=== PATIENT | male | born 1940 | race Caucasian/White ===

== ENCOUNTER 2017-10-06 02:00 | Inpatient (IN) | payer MEDICARE, BC ==
[2017-10-06 03:00] LABS: Hemoglobin 12.4 g/dL (14.0-18.0); Mean Corpuscular HGB CONC 31.2 g/dL (32.0-36.0); Mean Corpuscular Hemoglobin 30.2 pg (27.0-31.0); Platelet Count 283 thou/uL (130-400); RBC Distribution Width 17.5 % (11.5-14.5); Red Blood Cell (RBC) Count 4.09 mill/uL (4.70-6.10); White Blood Cell (WBC) Count 27.4 thou/uL (4.8-10.8)
[2017-10-06 03:17] LABS: Band 3 % (5-11); Eosinophils 3 % (0-10); Lymphocytes 2 % (21-51); MDiff Complete? YES; Monocytes 4 % (0-10); Neutrophil 88 % (42-75)
[2017-10-06 03:20] LABS: ALT (SGPT) 12 U/L (8-55); AST (SGOT) 26 U/L (5-34); Albumin 3.9 g/dL (3.4-4.8); Alkaline Phosphatase 75 U/L (40-150); Anion Gap 11 mmol/L (10-20); BUN (Urea Nitrogen) 34 mg/dL (8.4-25.7); Bilirubin, Total 0.5 mg/dL (0.2-1.2); Calc. Creatinine Clearance 0 mL/min (70-130); Calcium 8.6 mg/dL (7.8-10.44); Carbon Dioxide 26 mmol/L (23-31); Chloride 103 mmol/L (98-107); Estimated GFR-MDRD 32; Globulin 2.9 g/dL (2.4-3.5); Glucose 106 mg/dL (83-110); Lipase 33 U/L (8-78); Potassium 4.4 mmol/L (3.5-5.1); Protein, Total 6.8 g/dL (5.8-8.1); Sodium 136 mmol/L (136-145)
[2017-10-06 04:34] LABS: Bilirubin Negative (Negative); Blood, Urine Negative (Negative); Clarity CLEAR (Clear); Glucose, Urine (Dipstick) Negative (Negative); Leukocyte Negative (Negative); Nitrite Negative (Negative); Protein, Urine (Dipstick) 30 mg/dL (Neg-Trace); Specific Gravity, Urine 1.015 (1.002-1.036); Urobilinogen 0.2 mg/dL (0.2-1.0); pH, Urine 5.5 (5.0-9.0)
[2017-10-06 04:36] LABS: Bacteria/HPF None Seen HPF (None Seen); Hyaline Casts/LPF 0-3 HYALINE CAST LPF (0-3 Hyaline); Pathc Cast-AUWi Flag 0.14 (0-2.49); RBC/HPF 0-3 HPF (0-3); Squamous Epithelial 0-3 HPF (0-3); WBC/HPF 0-3 HPF (0-3)
[2017-10-06 04:37] LABS: Yeast-AUWi Flag 48.5 (0-25.0)
[2017-10-06 04:47] LABS: Yeast-All Forms None Seen HPF (None Seen)
[2017-10-06 06:04] LABS: CKMB 1.3 ng/mL (0-6.6); Troponin I Less than 0.010 ng/mL (< 0.028)
[2017-10-06] MEDS ORDERED: Chloraseptic Spray 180 ml Bottle PO PRN (07:10)
[2017-10-06] MEDS ORDERED: hydrALAZINE 20 MG/ML VIAL SLOW IVP PRN (07:10)
[2017-10-06] MEDS ORDERED: Zolpidem Tartrate 5 MG TAB PO PRN (07:10)
[2017-10-06] MEDS ORDERED: Sodium Chloride 0.65% Nasal 44 ML BOT EA NARE PRN (07:10)
[2017-10-06] MEDS ORDERED: Ondansetron PF 4 MG/2 ML Vial IVP PRN (07:10)
[2017-10-06] MEDS ORDERED: HYDROcodone/Acetaminophen 5/325 mg Tablet PO PRN (07:10)
[2017-10-06] MEDS ORDERED: Mag-Al 1200 mg/1200 mg/30 ML UDCUP PO PRN (07:10)
[2017-10-06] MEDS ORDERED: Loperamide HCl 2 MG CAP PO PRN (07:10)
[2017-10-06] MEDS ORDERED: Acetaminophen 325 MG TAB PO PRN (07:10)
[2017-10-06] MEDS ORDERED: Artificial Tear Sol 15 ML BOT EA EYE PRN (07:10)
[2017-10-06] MEDS ORDERED: Eucerin (Mineral Oil/Petrolatum,White) 30 gm Jar TOP PRN (07:10)
[2017-10-06] MEDS ORDERED: Loratadine 10 MG TAB PO PRN (07:10)
[2017-10-06] MEDS ORDERED: Diabetic Tussin 200 MG/10 ML UDCUP PO PRN (07:10)
[2017-10-06] MEDS: Sodium Chloride 0.9% 1,000 ML IV SCH ×2 (08:07→17:25)
[2017-10-06] MEDS: metroNIDAZOLE 500 MG in Premix Bag 1 BAG IVPB SCH ×2 (09:40→17:24)
[2017-10-06] MEDS: Heparin 5,000 UNITS/ML VIAL SC SCH ×2 (10:07→20:24)
[2017-10-06] MEDS: Saccharomyces boulardii 250 MG CAP PO SCH (10:07)
--- NOTE | 2017-10-06 13:01 | HP ---
DATE OF ADMISSION: 10/06/2017 PRIMARY CARE PHYSICIAN: Dr. Trnet Guardado. REASON FOR ADMISSION: Acute kidney failure, diarrhea. HISTORY OF PRESENT ILLNESS: A 77-year-old male who is sick since end august. The patient reports that initially symptoms started with dizziness. His dizziness was happening whenever he was lying fl at in the bed. There was no relation of dizziness with change in position of his head. There was no associated spinning sensation, but he was feeling nausea and intermittent vomiting and that is why salima desiraejayme saw ENT doctor in end august. The patient was told that his ENT examination was completely normal, but per the patient was given prescription of Keflex for 10 days. After starting that antibi otic therapy, the patient was having diarrhea. The patient also had diarrhea while on antibiotic the rapy and when he finished complete course of therapy, even after that the patient's diarrhea was pers isted. Normally, he has to go for bowel movement for 5 times, each time liquidy bowel movement. The patient also had very poor appetite and he lost about a 6-pound since end august. The patient was feeling crampy pain with the diarrhea, but he did not have any abdominal distention. He was not hav ing any hematochezia or melena. The patient also had several times similar dizzy spell episode along with nausea and vomiting and that is why they repeatedly show ENT doctor, but he recommended that ev erything is fine and no medication was prescribed. For last week, the patient was experiencing increasing nausea, upsetting stomach, and he was not able to keep anything down and his appetite reduced and that is why per patient's family member, took him to statistical typist. Dr. Earl did upper endoscopy as an outpatient basis and he was found with ga stritis and esophagitis, and instruction was given to increase lansoprazole twice a day. The patient still has ongoing diarrhea and he was feeling weak, dizzy, and tired that is why. The elsy rae also saw primary care physician and all symptoms were attributed to be dehydration. Today, doug france decided to bring him to the emergency room and he is found with acute kidney failure with a leukocy tosis with bandemia. The patient denies any UTI symptoms. He denies any constipation. He denies an y NSAID abuse. He denies any fever or chills. He denies any headache, chest pain, palpitations, ruel rtness of breath, or complete syncope. PAST MEDICAL HISTORY: History of diverticulosis as well as colon polyp, required a polypectomy and s ubsequently the patient had a post-polypectomy bleeding, required another colonoscopy; history of div erticulitis; history of abdominal aortic aneurysm with repair; iliac artery aneurysm with repair; hyp ertension; basal cell carcinoma; polycythemia vera; chronic splenomegaly; macular degeneration; senso rineural hearing loss; hypertension; gastroesophageal reflux disease; recent gastritis and esophagiti s. PAST SURGICAL HISTORY: Abdominal hernia repair with mesh, bilateral cataract removal, left iliac art david aneurysm repair, abdominal aortic aneurysm repair, L4-L5 lumbar laminectomy, colonoscopy and subs equent repeat colonoscopy for post-polypectomy bleeding, cholecystectomy. PAST PSYCHIATRIC HISTORY: Reviewed and negative. SOCIAL HISTORY: The patient is a former smoker. He quit smoking a few years ago. He denies any alc ohol or other illicit drug abuse. FAMILY HISTORY: The patient is only sibling left. Both parents in their 70s. Father from natural causes. Mom from massive heart attack. He has 3 sisters, one sister with stomach cancer, another sister with lung cancer, and another sister with throat cancer. Brother d ied from massive heart attack. ALLERGIES: No known drug allergy. REVIEW OF SYSTEMS: Please see my HPI for pertinent positive and negative. All other review of syste ms reviewed and negative except as mentioned in the HPI. Constitutional: Weight loss or gain, ability to conduct usual activities. Skin: Rash, itching. Eyes: Double vision, pain. ENT/Mouth: Nose bleeding, neck stiffness, pain, tenderness. Cardiovascular: Palpitations, dyspnea on exertion, orthopnea. Respiratory: Shortness of breath, wheezing, cough, hemoptysis, fever or night sweats. Gastrointestinal: Poor appetite, abdominal pain, heartburn, nausea, vomiting, constipation, or diarrhea. Genitourinary: Urgency, frequency, dysuria, nocturia. Musculoskeletal: Pain, swelling. Neurologic/Psychiatric: Anxiety, depression. Allergy/Immunologic: Skin rash, bleeding tendency. CURRENT HOME MEDICATIONS: Amlodipine 5 mg p.o. at bedtime, aspirin 81 mg p.o. at bedtime, hydroxyure a 500 mg p.o. daily, Prevacid 30 mg p.o. b.i.d., Hytrin 10 mg p.o. at bedtime. EMERGENCY ROOM COURSE: The patient is given 2 liters of IV fluid. PHYSICAL EXAMINATION: VITAL SIGNS: On arrival, blood pressure 105/65, pulse 90, respiratory rate 18, temperature 98.0, sat uration 99% on room air, weight 63.9 kilograms. GENERAL: The patient is currently alert, awake, appears chronically ill, in no obvious acute distres s. HEAD: Normocephalic, atraumatic. EYES: Pupils round, reactive to light. Extraocular muscle intact. ENT: Oropharynx within normal limits. Moist mucous membranes. No oral lesion, no pharyngeal erythe ma, no exudate. NECK: Supple, no JVD, no thyromegaly, no carotid bruit, no jugular venous distention. LUNGS: Clear to auscultation without any rhonchi or rales. CARDIAC: S1, S2 appears regular. No murmur, no gallop, no rub. ABDOMEN: Soft, bowel sounds present. No peritoneal sign, no guarding, no rigidity, no rebound, no s uprapubic tenderness. BACK: Unremarkable, no CVA tenderness. EXTREMITIES: Upper extremity: Passive movements of all joints are normal. Lower extremities: No e nanette. Good peripheral pulsation. SKIN: No skin rash. HEMATOLOGICAL: No lymphadenopathy. PSYCHIATRIC: Normal affect. NEUROLOGIC: Nonfocal examination. The patient moves all 4 limbs. Plantar bilateral flexor. SIGNIFICANT LABS: EKG showing nonspecific ST-T changes. Complete right bundle branch block pattern, left anterior fascicular block consistent with bifascicular block. CT of the abdomen and pelvis showing massive splenomegaly, status post cholecystectomy, aortoiliac st ent graft placement, the largest cyst throughout both kidneys suspicious for autosomal dominant polyc ystic kidney disease, diverticulosis, prostatomegaly. CBC: WBC 27.4, hemoglobin 12.4, platelet 283 with bandemia. BMP: Sodium 136, potassium 4.4, chlori de 103, carbon dioxide 26, anion gap 11, BUN 34, creatinine 2.05, glucose 106, calcium 8.6, magnesium 1.8. LFT: AST 26, ALT 12, alkaline phosphatase 75, CK-MB 1.3, troponin I less than 0.010, albumin 3.9, li pase 33. Urinalysis normal. ASSESSMENT AND PLAN: 1. Diarrhea. The patient has almost 1 month history of diarrhea, all diarrhea started after antibio tic exposure. The patient has leukocytosis with bandemia and I am suspecting Clostridium difficile i nfection. At this point, stool for infection workup will be sent and will start empirically IV Flagy l 500 mg IV q.8 hourly. We will hydrate him with IV fluid and also prescribe probiotics, Florastor 2 50 mg p.o. daily. If the patient infection workup is negative, then we will consult Gastroenterology consultation for possible colonoscopy evaluation. This patient already had colonoscopy about a year ago. We will monitor in hospital closely for hemodynamic compromise. 2. Acute kidney failure likely related with the patient's poor p.o. intake and ongoing diarrhea. At this point, we will continue gentle IV fluid at NS at 100 mL per hour and we will monitor renal func tion. Another possibility that patient has multiple cysts in his both kidneys that patient might hav e chronic renal disease associated with polycystic kidney disease. The patient will need outpatient Nephrology followup. 3. Polycythemia vera with history of chronic splenomegaly. The patient will continue hydroxyurea 50 0 mg p.o. daily. The patient will follow up with Dr. Breen as an outpatient basis for maintenance phlebotomy. 4. Hypertension. We will continue amlodipine 5 mg p.o. daily. 5. Benign enlargement of prostate. We will continue terazosin 10 mg p.o. at bedtime. 6. Protein calorie malnutrition, moderate. The patient will be given nutritional supplement while i n hospital. 7. Deep venous thrombosis prophylaxis, heparin 5000 units subcu twice daily. 8. Gastrointestinal prophylaxis, Pepcid 20 mg p.o. daily. CODE STATUS: The patient is FULL CODE. The patient's is surrogate decision maker. Disposition plan based on clinical course. We are expecting patient's stay in hospital more than 2 m idnights. Plan of care discussed with the patient and family member in detail.
[2017-10-06] MEDS ORDERED: Iopamidol 370 76% 50 ML VIAL FS ONE (15:18)
--- NOTE | 2017-10-06 19:07 | CT ---
PRELIMINARY REPORT/[facility]/EMERGENTY AFTER-HOURS PROCEDURE CT Abdomen and Pelvis Without Intravenous Contrast CLINICAL HISTORY: 77 years old, male; Signs and symptoms; Other: Diahrrea; Patient HX: Given oral contrast, m75 C/O berlin rrhea with slight abd pain and dizziness. Pt has had diarrhea since the end of august with intermitten t vomiting. Pt took nausea meds at 0030. Pt had gi scope done on ; Results are not back. Pt denies any CT scans done. Pt has HX of polycythemia and HTN. TECHNIQUE: Axial computed tomography images of the abdomen and pelvis without intravenous contrast. Coronal refo rmatted images were created and reviewed. COMPARISON: No relevant prior studies available. FINDINGS: Lung bases: Unremarkable. No mass. No consolidation. ABDOMEN: Liver: Unremarkable. Gallbladder and bile ducts: The patient has had a cholecystectomy. No ductal dilation. Pancreas: Unremarkable. No ductal dilation. Spleen: The spleen is massively enlarged, measuring 24.9 x 16.1 cm. Adrenals: Unremarkable. No mass. Kidneys and ureters: There are numerous large cysts throughout both kidneys, measuring up to 7.8 cm o n the left consistent with probable autosomal dominant polycystic kidney No obstructing stones. Stomach and bowel: Scattered diverticula without evidence of acute diverticulitis or perforation. No obstruction. PELVIS: Appendix: No findings to suggest acute appendicitis. Bladder: Unremarkable. No stones. Reproductive: Prostate is enlarged, measuring 4.9 x 3.9 cm. ABDOMEN and PELVIS: Intraperitoneal space: Unremarkable. No free air. No significant fluid collection. Bones/joints: No acute fracture. No dislocation. Soft tissues: Unremarkable. Vasculature: There is an aortoiliac stent graft in place. No evidence of rupture. No abdominal aortic aneurysm. Lymph nodes: Unremarkable. No enlarged lymph nodes. IMPRESSION: Massive splenomegaly. Status post cholecystectomy and aortoiliac stent-graft placement. Large cysts throughout both kidneys suspicious for autosomal dominant polycystic kidney disease. Diverticulosis without acute diverticulitis. Prostatomegaly. Thank you for allowing us to participate in the care of your patient. Dictated and Authenticated by: Jaziel Padilla MD 10/06/2017 6:05 AM Central Time ([place] & [place]) FINAL REPORT EMERGENT AFTER HOURS CT OF THE ABDOMEN AND PELVIS: IMPRESSION: Agree with the preliminary interpretation given by [facility]. Findings appear similar to the 10/02/16 exami nation. POS: VARUN
[2017-10-06] MEDS: Amlodipine 5 MG TAB PO SCH (20:13)
[2017-10-06] MEDS: Terazosin HCl 5 MG CAP PO SCH (20:13)
[2017-10-06] MEDS: Aspirin 81 mg Enteric Coated Tablet PO SCH (20:13)
--- NOTE | 2017-10-06 22:11 | CON ---
DATE OF CONSULTATION: 10/06/2017 REASON FOR CONSULTATION: Diarrhea. CONSULTING PHYSICIAN: Eladio Moore M.D. HISTORY OF PRESENT ILLNESS: The patient is a 77-year-old male with past medical history of diverticu litis; colon polyps; AAA, status post repair; iliac artery aneurysm, status post repair; hypertension ; basal cell carcinoma; polycythemia vera with splenomegaly; sensorineural hearing loss; macular dege neration; hypertension; GERD and mild dementia; presenting with complaints of diarrhea. Per conversa tion with the patient and the patient's family, he has been having intermittent diarrhea for the last year, initially characterized as having anywhere between 3-5 semi-solid to liquid bowel movements pe r day that would spontaneously resolve with more semi-solid to solid stools during the same time. Ho wever, approximately 1 month ago, he was having increased coughing and was thought to have a sinus in fection. He was seen by an ENT doctor, who gave the patient antibiotics (Keflex) for 10 days with re appearance of his diarrhea after that. However, after upon cessation of the antibiotic therapy, he d id endorse a period of time where he did not have any diarrhea. However, approximately 4-5 days ago, he had acute onset of worsening of his chronic diarrhea, characterized as having more than 20 semi s olid/loose bowel movements per day with no special maneuvers in order to defecate. This was associat ed with increased accident/slowing of his clothes that would occur both during the day and at night. His diarrhea did not improve with fasting states. He denies any sick contacts, drinking or swimming from untreated water sources, recent changes in his medication (although he did change Zoloft approx imately a month and a half ago) or eating from any street/food vendors. However, the night that his diarrhea worsened, he said that he had gone to a family member's house and had consumed shrimp and oy sters with the appearance of the diarrhea along with nausea and vomiting within 1-1/2 hours after the consumption of food. The nausea and vomiting abated with the use of antiemetic medications, but his diarrhea continued to the current day. With the increase in the nausea and vomiting, he was seen by Dr. Earl in the [facility], who ultimately did an upper endoscopy. During the upper endoscopy, he found evidence of increased m ucosal erythema within the stomach, duodenum and distal esophagus consistent with mild gastritis, duo denitis and reflux esophagitis respectively. His acid reflux medication (lansoprazole) was then incr eased to twice daily usage for probable acid reflux disease. Of note, the patient does have livestock at home consisting of both chickens and cows and he does davey vest the eggs for human consumption. REVIEW OF SYSTEMS: A 10-category review of systems was obtained with all responses negative except f or the pertinent positives as listed in the HPI. PAST MEDICAL HISTORY: As per HPI. PAST SURGICAL HISTORY: Abdominal hernia repair with mesh, bilateral cataract removal, left iliac art david aneurysm repair, abdominal aortic aneurysm repair, L4-L5 lumbar laminectomy, multiple colonoscopi es with post-polypectomy bleeding in 11/2016 and cholecystectomy. FAMILY HISTORY: Positive for stomach cancer (sister), lung cancer (sister), throat cancer (sister), coronary artery disease/myocardial infarction. SOCIAL HISTORY: Denies any tobacco, alcohol or illicit drug use. OUTPATIENT MEDICATIONS: Reviewed. ALLERGIES: No known drug allergies. PHYSICAL EXAMINATION: VITAL SIGNS: Temperature 99, pulse 88, blood pressure 150/92, respiratory rate 16, satting 100% on r oom air. GENERAL: The patient is lying in bed, in no acute distress, alert and oriented x4. NECK: Supple. No JVD noted. CARDIOVASCULAR: Regular rate and rhythm. A 3/6 systolic murmur was best heard at the right upper st ernal border that was high pitched in its character. No discernible gallops or rubs. RESPIRATORY: Clear to auscultation in the bilateral upper lung ross; however, there was some resis tance airflow in the bilateral lower lung ross without evidence of wheezing or rales. ABDOMEN: Normoactive bowel sounds, soft, nontender, and nondistended. EXTREMITIES: No cyanosis, clubbing or edema. Some ecchymoses noted on the bilateral upper extremiti es. LABORATORY DATA: CBC with a white blood cell count of 27.4, hemoglobin 12.4, hematocrit 39.7, platel ets 283. Chemistry with a sodium of 136, potassium 4.4, chloride 103, CO2 of 26, BUN 34, creatinine 2.05, glucose 106, AST 26, ALT 12, alkaline phosphatase 75, total bilirubin 0.5, lipase 33, albumin 3 .9. Infectious stool workup was negative for Clostridium difficile, Campylobacter, Shiga toxin, Giar berlin and cryptosporidium. IMAGING DATA: CT abdomen and pelvis obtained on 10/06/2017, but the final read is still pending at t his time. ASSESSMENT AND PLAN: The patient is a 77-year-old male with past medical history of multiple medical problems, presenting with complaints of acute on chronic diarrhea. Diarrhea. The patient is presenting with a history of chronic diarrhea that has been present for the last year with both EGD and colonoscopic evaluation performed in November of last year. Colonoscopy per formed in November did not find any evidence of lymphocytic or collagenous colitis at that time. However , 1 month ago, he had a sinus infection for which he was treated with antibiotic therapy. During the antibiotic administration, he did have acute worsening of the diarrhea, but it abated upon completio n of the antibiotic regimen. However, 4-5 days ago, he had acute worsening of his diarrhea after con sumption of shrimp and oysters, now having approximately 20+ bowel movements semi-solid to loose marbella l movements per day that are associated with increased accidents and soiling with no change in food c onsumption. He denies any elements of steatorrhea in his stool making bile acid diarrhea or pancreat ic exocrine insufficiency less likely. At this point, given the acute onset or acute worsening of hi s diarrhea within the last 4-5 days an infectious etiology is more likely with a history of raising c hickens and cows was at home, Salmonella is definitely on the differential for possible infectious et iology. Entamoeba histolytica is also a potential infectious etiology that could be causing his diar ahsanti. He was recently increased on lansoprazole as part of a recommended regimen secondary to gastri tis seen on the recent EGD with proton-pump inhibitors among medications that could potentially cause microscopic colitis and lastly he is also taking hydroxyurea for polycythemia vera, which could pote ntially cause diarrhea. RECOMMENDATIONS: 1. We would hold PPI and hydroxyurea for now given possible worsening diarrhea as a result of these medications. 2. We will follow up on the stool culture for evaluation of possible Salmonella infection. 3. We will order Entamoeba histolytica antigen for evaluation of possible parasite infection. 4. I agree with as needed use of loperamide to slow the diarrhea states. We would recommend against attempting to normalize his bowel movements at this time given a possible infectious etiology. 5. If all the above are negative, we would then consider repeat colonoscopy for reevaluation of poss ible microscopic colitis or other infectious etiology including viral etiology. We will continue to follow. Please call with any additional questions.
[2017-10-07] MEDS: metroNIDAZOLE 500 MG in Premix Bag 1 BAG IVPB SCH ×3 (00:39→18:36)
[2017-10-07 05:28] LABS: ALT (SGPT) 9 U/L (8-55); AST (SGOT) 15 U/L (5-34); Albumin 3.3 g/dL (3.4-4.8); Alkaline Phosphatase 57 U/L (40-150); Anion Gap 9 mmol/L (10-20); BUN (Urea Nitrogen) 29 mg/dL (8.4-25.7); Bilirubin, Total 0.4 mg/dL (0.2-1.2); Calc. Creatinine Clearance 38 mL/min (70-130); Calcium 8.2 mg/dL (7.8-10.44); Carbon Dioxide 24 mmol/L (23-31); Chloride 109 mmol/L (98-107); Estimated GFR-MDRD 44; Globulin 2.3 g/dL (2.4-3.5); Glucose 86 mg/dL (83-110); Potassium 4.1 mmol/L (3.5-5.1); Protein, Total 5.6 g/dL (5.8-8.1); Sodium 138 mmol/L (136-145)
--- NOTE | 2017-10-07 05:29 | PDOC.PN ---
- Subjective Encounter Start Date: 10/07/17 Encounter Start Time: 07:00 -: old records requested/rev Patient seen and examined. No new complaints. No overnight events still has diarrhoea, has poor apatite, no fever - Objective Resuscitation Status: Resuscitation Status FULL:Full Resuscitation MAR Reviewed: Yes Vital Signs & Weight: Vital Signs (12 hours) Temp Pulse Resp BP BP Pulse Ox 10/07/17 04:00 99.5 F 82 18 113/72 94 L 10/07/17 01:04 95 10/07/17 00:00 99.8 F H 82 18 152/80 H 92 L 10/06/17 20:13 88 133/75 10/06/17 20:00 98.3 F 88 18 133/75 95 Weight Weight 142 lb 8 oz I&O: 10/05/17 10/06/17 10/07/17 06:59 06:59 06:59 Intake Total 1789 Output Total 1425 Balance 364 Result Diagrams: 10/07/17 04:44 10/07/17 04:44 EKG Reviewed by me: Yes (nsr) Phys Exam - Physical Examination Constitutional: NAD HEENT: PERRLA, moist MMs, sclera anicteric Neck: no JVD, supple Respiratory: no wheezing, no rales, no rhonchi Cardiovascular: RRR, no significant murmur, no rub Gastrointestinal: soft, non-tender, no distention, positive bowel sounds Musculoskeletal: no edema, pulses present Neurological: non-focal, normal sensation, moves all 4 limbs Psychiatric: normal affect, A&O x 3 Skin: no rash, normal turgor Dx/Plan (1) Acute kidney failure Status: Acute (2) Diarrhea Code(s): R19.7 - DIARRHEA, UNSPECIFIED Status: Acute (3) Diverticulosis of colon Code(s): K57.30 - DVRTCLOS OF LG INT W/O PERFORATION OR ABSCESS W/O BLEEDING Status: Chronic (4) GERD (gastroesophageal reflux disease) Code(s): K21.9 - GASTRO-ESOPHAGEAL REFLUX DISEASE WITHOUT ESOPHAGITIS Status: Chronic (5) H/O abdominal aortic aneurysm repair Code(s): Z98.890 - OTHER SPECIFIED POSTPROCEDURAL STATES Status: Chronic (6) Hypertension Code(s): I10 - ESSENTIAL (PRIMARY) HYPERTENSION Status: Chronic (7) Polycythemia vera Code(s): D45 - POLYCYTHEMIA VERA Status: Chronic (8) Splenomegaly Code(s): R16.1 - SPLENOMEGALY, NOT ELSEWHERE CLASSIFIED Status: Chronic Comment: Secondary to polycythemia - Plan cont current plan of care, plan discussed w/ family, continue antibiotics * DC tele * transfer to medical * infection work up is negative * follow up on testing * medication reviewed as below * symptomatic treatment. * continue flagyl Review of Systems - Review of Systems Eyes: negative: Pain, Vision Change, Conjunctivae Inflammation, Eyelid Inflammation, Redness, Other ENT: negative: Ear Pain, Ear Discharge, Nose Pain, Nose Discharge, Nose Congestion, Mouth Pain, Mouth Swelling, Throat Pain, Throat Swelling, Other Respiratory: negative: Cough, Dry, Shortness of Breath, Hemoptysis, SOB with Excertion, Pleuritic Pain, Sputum, Wheezing Cardiovascular: negative: chest pain, palpitations, orthopnea, paroxysmal nocturnal dyspnea, edema, light headedness, other Gastrointestinal: Diarrhea. negative: Nausea, Vomiting, Abdominal Pain, Constipation, Melena, Hematochezia, Other Genitourinary: negative: Dysuria, Frequency, Incontinence, Hematuria, Retention , Other Musculoskeletal: negative: Neck Pain, Shoulder Pain, Arm Pain, Back Pain, Hand Pain, Leg Pain, Foot Pain, Other Skin: negative: Rash, Lesions, Vasyl, Bruising, Other - Medications/Allergies Allergies/Adverse Reactions: Allergies Allergy/AdvReac Type Severity Reaction Status Date / Time No Known Allergies Allergy Verified 12/01/16 14:12 Medications: Current Medications Acetaminophen (Tylenol) 650 mg PO Q4H PRN PRN Reason: Headache/Fever or Pain Hydrocodone Bitart/Acetaminophen ([place] 5/325) 1 tab PO Q4H PRN PRN Reason: Moderate Pain (4-6) Al Hydroxide/Mg Hydroxide (Maalox) 30 ml PO Q6H PRN PRN Reason: Heartburn or Indigestion Amlodipine Besylate (Norvasc) 5 mg PO HS [facility] Last Admin: 10/06/17 20:13 Dose: 5 mg Artificial Tears (Tears Renewed 15ml Bottle) 0 drop EA EYE PRN PRN PRN Reason: Dry Eyes Aspirin (Ecotrin) 81 mg PO [facility] Last Admin: 10/06/17 20:13 Dose: 81 mg Famotidine (Pepcid) 20 mg PO DAILY [facility] Guaifenesin (Robitussin Sf) 200 mg PO Q4H PRN PRN Reason: Cough Heparin Sodium (Porcine) (Heparin) 5,000 units SC BID [facility] Last Admin: 10/06/17 20:24 Dose: 5,000 units Hydralazine HCl (Apresoline) 10 mg SLOW IVP Q4H PRN PRN Reason: Systolic BP > 180 Hydroxyurea (Hydrea) 500 mg PO DAILY [facility] Sodium Chloride (Normal Saline 0.9%) 1,000 mls @ 100 mls/hr IV .Q10H [facility] Last Admin: 10/06/17 17:25 Dose: 1,000 mls Metronidazole 500 mg/ Device 100 mls @ 100 mls/hr IVPB [id number] [facility] Last Admin: 10/07/17 00:39 Dose: 100 mls Loperamide HCl (Imodium) 2 mg PO PRN PRN PRN Reason: Diarrhea/Loose Stools Loratadine (Claritin) 10 mg PO DAILYPRN PRN PRN Reason: Sinus Symptoms Mineral Oil/White Petrolatum (Eucerin Cream) 0 gm TOP BIDPRN PRN PRN Reason: Dry Skin Ondansetron HCl (Zofran Odt) 4 mg PO Q6H PRN PRN Reason: Nausea/Vomiting Ondansetron HCl (Zofran) 4 mg IVP Q6H PRN PRN Reason: Nausea/Vomiting Phenol (Chloraseptic [place] 180 Ml Bot) 0 ml PO PRN PRN PRN Reason: Sore Throat Saccharomyces Boulardii (Florastor) 250 mg PO DAILY [facility] Last Admin: 10/06/17 10:07 Dose: Not Given Sodium Chloride ([place] Nasal [place] 0.65%) 0 ml EA NARE QIDPRN PRN PRN Reason: Nasal Congestion Terazosin HCl (Hytrin) 10 mg PO HS [facility] Last Admin: 10/06/17 20:13 Dose: 10 mg Zolpidem Tartrate (Ambien) 5 mg PO HSPRN PRN PRN Reason: Insomnia
[2017-10-07 05:31] LABS: Band 12 % (5-11); Eosinophils 1 % (0-10); Hemoglobin 11.2 g/dL (14.0-18.0); Lymphocytes 4 % (21-51); MDiff Complete? YES; Mean Corpuscular Hemoglobin 30.5 pg (27.0-31.0); Mean Corpuscular Volume 98.3 fl (80.0-94.0); Mean Platelet Volume 8.8 fL (7.4-10.4); Monocytes 3 % (0-10); Neutrophil 80 % (42-75); Platelet Count 342 thou/uL (130-400); RBC Distribution Width 17.6 % (11.5-14.5); Red Blood Cell (RBC) Count 3.66 mill/uL (4.70-6.10); White Blood Cell (WBC) Count 25.4 thou/uL (4.8-10.8)
[2017-10-07] MEDS: Sodium Chloride 0.9% 1,000 ML IV SCH ×2 (05:33→16:15)
[2017-10-07] MEDS: Famotidine 20 MG TAB PO SCH (09:34)
[2017-10-07] MEDS: Heparin 5,000 UNITS/ML VIAL SC SCH ×2 (09:35→21:59)
[2017-10-07] MEDS: Hydroxyurea 500 MG CAP PO SCH (09:35)
[2017-10-07] MEDS: Saccharomyces boulardii 250 MG CAP PO SCH (09:36)
[2017-10-07] MEDS: Ondansetron ODT 4 MG TAB PO PRN (09:45)
[2017-10-07] MEDS ORDERED: Promethazine HCl 25 MG/ML VIAL SLOW IVP PRN (10:14)
[2017-10-07] MEDS: Terazosin HCl 5 MG CAP PO SCH (21:59)
[2017-10-07] MEDS: Amlodipine 5 MG TAB PO SCH (21:59)
[2017-10-07] MEDS: Aspirin 81 mg Enteric Coated Tablet PO SCH (21:59)
--- NOTE | 2017-10-07 23:56 | PRG ---
DATE OF SERVICE: 10/07/2017 REASON FOR CONSULTATION: Diarrhea. SUBJECTIVE: Per patient and per patient's , his diarrhea has improved somewhat in terms of frequ ency, but he does continue to have approximately 6 liquid bowel movements over the last 24 hours; how ever, this is also improved in terms of stool consistency with describing more of a solid conten t to his stools rather than this truly liquid. He did have an increased appetite this morning and cuevas bsequently ate all of his breakfast, but within 30-45 minutes after eating breakfast, he vomited most of his breakfast. Currently states that he does feel some nausea, but has not had any further episo kemi of vomiting. Currently, denies any fevers, chills, abdominal pain, hematochezia, melena or hemat emesis. OBJECTIVE: VITAL SIGNS: Temperature 98.1, pulse 91, blood pressure 139/80, respiratory rate 17, satting 98% on room air. GENERAL: The patient is lying in a chair at bedside, in no acute distress. CARDIOVASCULAR: Regular rate and rhythm. A 3/6 systolic murmur best heard at the right upper sterna l border with high pitched character auscultated. No discernible gallops or rubs. RESPIRATORY: Clear to auscultation bilaterally. ABDOMEN: Normoactive bowel sounds, soft, nontender, nondistended. EXTREMITIES: No cyanosis, clubbing or edema. LABORATORY DATA: CBC with a white blood cell count of 25.4, hemoglobin 11.2, hematocrit 36, platelet s 342. Chemistry with a sodium of 138, potassium 4.1, chloride 109, CO2 of 24, BUN 29, creatinine 1. 55, glucose 86. IMAGING DATA: No current GI imaging is available for review. ASSESSMENT AND PLAN: The patient is a 77-year-old male with past medical history of multiple medical problems, presenting with acute on chronic diarrhea. Diarrhea: The patient described a history on admission of chronic diarrhea that had been intermitten tly occurring over the last year with both EGD and colonoscopic evaluation performed in November for that particular condition. There was no evidence of either microscopic colitis seen on the colonoscopy i n 11/2016 nor was any overt abnormalities seen on the EGD just obtained this last week. However, ove r the last 4-5 days prior to admission, he had sudden worsening of his diarrhea, having approximately 20+ bowel movements per day that were semisolid to liquid in form and associated with increased acci dents and soiling of his undergarments. Infectious workup at this time has been negative thus far, w hich could be due to either a viral etiology being the source of his diarrhea or sterilization of his stool with antibiotics prior to completion of testing (unlikely). Infectious workup for Entamoeba h istolytica is also still pending, but with improvement of his symptoms with more conservative measure s, this is unlikely. At this time, the most likely explanation would be acute viral illness causing a viral gastroenteritis resulting in significant diarrhea frequency with dehydration and nausea and v omiting. RECOMMENDATIONS: 1. We would continue to hold PPI and hydroxyurea as possible sources of worsening diarrhea. 2. We will follow up on lab results for Entamoeba histolytica antigen for possible parasitic infecti on. 3. Can continue loperamide for slowing down GI motility and symptom relief of diarrhea. 4. I discussed repeat colonoscopy with both the patient and his and in light of a probable adriana l illness that would not like to proceed at this particular point in time. 5. We would continue with more conservative measures with IV fluids. 6. We would consider discontinuation of metronidazole given the unlikelihood that this is a Clostrid ium difficile infection per stool studies. We will continue to follow. Please call with any questions.
[2017-10-08] MEDS: Sodium Chloride 0.9% 1,000 ML IV SCH ×2 (03:25→14:16)
[2017-10-08 05:59] LABS: Band 4 % (5-11); Eosinophils 2 % (0-10); Hemoglobin 11.6 g/dL (14.0-18.0); Lymphocytes 2 % (21-51); MDiff Complete? YES; Mean Corpuscular HGB CONC 30.5 g/dL (32.0-36.0); Mean Corpuscular Hemoglobin 29.5 pg (27.0-31.0); Mean Corpuscular Volume 96.6 fl (80.0-94.0); Mean Platelet Volume 8.4 fL (7.4-10.4); Monocytes 3 % (0-10); Neutrophil 89 % (42-75); PLT Morphology Comment Appears Increased; Platelet Count 482 thou/uL (130-400); RBC Distribution Width 17.7 % (11.5-14.5); Red Blood Cell (RBC) Count 3.93 mill/uL (4.70-6.10); White Blood Cell (WBC) Count 30.3 thou/uL (4.8-10.8)
[2017-10-08 06:03] LABS: Albumin 3.6 g/dL (3.4-4.8); Anion Gap 11 mmol/L (10-20); BUN (Urea Nitrogen) 31 mg/dL (8.4-25.7); BUN/Creatinine Ratio 20.26; Calc. Creatinine Clearance 37 mL/min (70-130); Calcium 8.6 mg/dL (7.8-10.44); Carbon Dioxide 24 mmol/L (23-31); Chloride 107 mmol/L (98-107); Estimated GFR-MDRD 45; Glucose 83 mg/dL (83-110); Phosphorus 2.6 mg/dL (2.3-4.7); Potassium 4.3 mmol/L (3.5-5.1); Sodium 138 mmol/L (136-145)
[2017-10-08] MEDS: metroNIDAZOLE 500 MG in Premix Bag 1 BAG IVPB SCH (08:08)
--- NOTE | 2017-10-08 09:29 | PDOC.PN ---
- Subjective Encounter Start Date: 10/08/17 Encounter Start Time: 07:00 pt has now jelly like stool, no fever - Objective Resuscitation Status: Resuscitation Status FULL:Full Resuscitation MAR Reviewed: Yes Vital Signs & Weight: Vital Signs (12 hours) Temp Pulse Resp BP BP BP Pulse Ox 10/08/17 07:40 97.8 F 98 20 157/84 H 98 10/08/17 00:00 98.1 F 99 22 H 144/72 H 95 10/07/17 21:59 75 133/80 Weight Weight 140 lb I&O: 10/07/17 10/08/17 10/09/17 06:59 06:59 06:59 Intake Total 3489 1620 Output Total 2550 200 Balance 939 1420 Result Diagrams: 10/08/17 05:05 10/08/17 05:05 Phys Exam - Physical Examination Constitutional: NAD HEENT: PERRLA, moist MMs, sclera anicteric Neck: no JVD, supple Respiratory: no wheezing, no rales, no rhonchi Cardiovascular: RRR, no rub SM+ Gastrointestinal: soft, non-tender, no distention, positive bowel sounds Musculoskeletal: no edema, pulses present Neurological: non-focal, normal sensation, moves all 4 limbs Lymphatic: no nodes Psychiatric: normal affect, A&O x 3 Skin: no rash, normal turgor Dx/Plan (1) Acute kidney failure Status: Resolved (2) Diarrhea Code(s): R19.7 - DIARRHEA, UNSPECIFIED Status: Acute Qualifiers: Diarrhea type: presumed infectious Qualified Code(s): R19.7 - Diarrhea, unspecified Comment: presumed viral infection (3) Diverticulosis of colon Code(s): K57.30 - DVRTCLOS OF LG INT W/O PERFORATION OR ABSCESS W/O BLEEDING Status: Chronic (4) GERD (gastroesophageal reflux disease) Code(s): K21.9 - GASTRO-ESOPHAGEAL REFLUX DISEASE WITHOUT ESOPHAGITIS Status: Chronic (5) H/O abdominal aortic aneurysm repair Code(s): Z98.890 - OTHER SPECIFIED POSTPROCEDURAL STATES Status: Chronic (6) Hypertension Code(s): I10 - ESSENTIAL (PRIMARY) HYPERTENSION Status: Chronic (7) Polycythemia vera Code(s): D45 - POLYCYTHEMIA VERA Status: Chronic (8) Splenomegaly Code(s): R16.1 - SPLENOMEGALY, NOT ELSEWHERE CLASSIFIED Status: Chronic Comment: Secondary to polycythemia (9) Leucocytosis Code(s): D72.829 - ELEVATED WHITE BLOOD CELL COUNT, UNSPECIFIED Status: Chronic Comment: due to polycythemia vera - Plan cont current plan of care, plan discussed w/ family * DC Flagyl * still concerned about his chronic diarrhoea, will defer work up to GI * await few sendout test result * medication reviewed as below * symptomatic treatment. * currently protonix and hydroxyurea on hold Review of Systems - Review of Systems Constitutional: negative: fever, chills, sweats, weakness, malaise, other ENT: negative: Ear Pain, Ear Discharge, Nose Pain, Nose Discharge, Nose Congestion, Mouth Pain, Mouth Swelling, Throat Pain, Throat Swelling, Other Respiratory: negative: Cough, Dry, Shortness of Breath, Hemoptysis, SOB with Excertion, Pleuritic Pain, Sputum, Wheezing Cardiovascular: negative: chest pain, palpitations, orthopnea, paroxysmal nocturnal dyspnea, edema, light headedness, other Gastrointestinal: Diarrhea. negative: Nausea, Vomiting, Abdominal Pain, Constipation, Melena, Hematochezia, Other Genitourinary: negative: Dysuria, Frequency, Incontinence, Hematuria, Retention , Other Musculoskeletal: negative: Neck Pain, Shoulder Pain, Arm Pain, Back Pain, Hand Pain, Leg Pain, Foot Pain, Other Skin: negative: Rash, Lesions, Vasyl, Bruising, Other Neurological: negative: Weakness, Numbness, Incoordination, Change in Speech, Confusion, Seizures, Other - Medications/Allergies Allergies/Adverse Reactions: Allergies Allergy/AdvReac Type Severity Reaction Status Date / Time No Known Allergies Allergy Verified 12/01/16 14:12 Medications: Current Medications Acetaminophen (Tylenol) 650 mg PO Q4H PRN PRN Reason: Headache/Fever or Pain Hydrocodone Bitart/Acetaminophen ([place] 5/325) 1 tab PO Q4H PRN PRN Reason: Moderate Pain (4-6) Al Hydroxide/Mg Hydroxide (Maalox) 30 ml PO Q6H PRN PRN Reason: Heartburn or Indigestion Amlodipine Besylate (Norvasc) 5 mg PO HS [facility] Last Admin: 10/07/17 21:59 Dose: 5 mg Artificial Tears (Tears Renewed 15ml Bottle) 0 drop EA EYE PRN PRN PRN Reason: Dry Eyes Aspirin (Ecotrin) 81 mg PO HS [facility] Last Admin: 10/07/17 21:59 Dose: 81 mg Famotidine (Pepcid) 20 mg PO DAILY [facility] Last Admin: 10/07/17 09:34 Dose: 20 mg Guaifenesin (Robitussin Sf) 200 mg PO Q4H PRN PRN Reason: Cough Heparin Sodium (Porcine) (Heparin) 5,000 units SC BID [facility] Last Admin: 10/07/17 21:59 Dose: 5,000 units Hydralazine HCl (Apresoline) 10 mg SLOW IVP Q4H PRN PRN Reason: Systolic BP > 180 Hydroxyurea (Hydrea) 500 mg PO DAILY [facility] Last Admin: 10/07/17 09:35 Dose: 500 mg Sodium Chloride (Normal Saline 0.9%) 1,000 mls @ 100 mls/hr IV .Q10H [facility] Last Admin: 10/08/17 03:25 Dose: 1,000 mls Loperamide HCl (Imodium) 2 mg PO PRN PRN PRN Reason: Diarrhea/Loose Stools Loratadine (Claritin) 10 mg PO DAILYPRN PRN PRN Reason: Sinus Symptoms Mineral Oil/White Petrolatum (Eucerin Cream) 0 gm TOP BIDPRN PRN PRN Reason: Dry Skin Ondansetron HCl (Zofran Odt) 4 mg PO Q6H PRN PRN Reason: Nausea/Vomiting Last Admin: 10/07/17 09:45 Dose: 4 mg Ondansetron HCl (Zofran) 4 mg IVP Q6H PRN PRN Reason: Nausea/Vomiting Phenol (Chloraseptic [place] 180 Ml Bot) 0 ml PO PRN PRN PRN Reason: Sore Throat Promethazine HCl (Phenergan) 12.5 mg SLOW IVP Q6H PRN PRN Reason: Nausea/Vomiting Saccharomyces Boulardii (Florastor) 250 mg PO DAILY [facility] Last Admin: 10/07/17 09:36 Dose: 250 mg Sodium Chloride ([place] Nasal [place] 0.65%) 0 ml EA NARE QIDPRN PRN PRN Reason: Nasal Congestion Terazosin HCl (Hytrin) 10 mg PO [facility] Last Admin: 10/07/17 21:59 Dose: 10 mg Zolpidem Tartrate (Ambien) 5 mg PO HSPRN PRN PRN Reason: Insomnia
[2017-10-08] MEDS: Saccharomyces boulardii 250 MG CAP PO SCH (09:53)
[2017-10-08] MEDS: Heparin 5,000 UNITS/ML VIAL SC SCH ×2 (09:53→20:44)
[2017-10-08] MEDS: Famotidine 20 MG TAB PO SCH (09:53)
[2017-10-08] MEDS: Hydroxyurea 500 MG CAP PO SCH (09:54)
[2017-10-08 12:45] VITALS: BMI 18.4
[2017-10-08] MEDS: Ondansetron ODT 4 MG TAB PO PRN (14:21)
[2017-10-08] MEDS: Amlodipine 5 MG TAB PO SCH (20:42)
[2017-10-08] MEDS: Terazosin HCl 5 MG CAP PO SCH (20:43)
[2017-10-08] MEDS: Aspirin 81 mg Enteric Coated Tablet PO SCH (20:43)
--- NOTE | 2017-10-08 22:52 | PRG ---
DATE OF SERVICE: 10/08/2017 REASON FOR CONSULTATION: Diarrhea. The patient states that he is doing better this morning with no further episodes of nausea or vomitin g and was able to eat breakfast this morning without incident. He also states that he has had approx imately 3-5 semi-solid bowel movements over the last 24 hours, which is improved in terms of stool co nsistency, but not possibly frequency. Currently, denies any nausea, vomiting, fevers, chills, abdom inal pain, hematochezia, melena, or hematemesis. OBJECTIVE: VITAL SIGNS: Temperature 99.1, pulse 96, blood pressure 155/74, respiratory rate 16, satting 96% on room air. GENERAL: The patient is lying in bed with no acute distress. Alert and oriented x4. CARDIOVASCULAR: Regular rate and rhythm. A 3/6 systolic murmur best heard at the right upper sterna l border with a high-pitched character auscultated. No discernible gallops or rubs. RESPIRATORY: Clear to auscultation bilaterally. ABDOMEN: Normoactive bowel sounds, soft, nontender, nondistended. EXTREMITIES: No cyanosis, clubbing, or edema. LABORATORY DATA: CBC with a white blood cell count of 30.3, hemoglobin 11.6, hematocrit 37.9, platel ets 482. Chemistry with a sodium of 138, potassium 4.3, chloride 107, CO2 of 24, BUN 31, creatinine 1.53, glucose 83. IMAGING DATA: No current GI imaging is available for review. ASSESSMENT AND PLAN: The patient is a 77-year-old male with multiple past medical problems presentin with acute on chronic diarrhea. Diarrhea. The patient admits to a story of chronic diarrhea that has been intermittently occurring o lorena the last year with colonoscopic evaluation, performed in November, with no evidence of microscopic co litis, and more recently an EGD performed last week, which did not reveal any abnormalities. However , 4-5 days prior to admission, he had sudden worsening of this diarrhea with approximately 20+ bowel movements per day. They were semisolid to liquid in form and associated with increased nausea and vo miting and fecal soiling. However, during the course of this hospitalization with more conservative management including IV fluids, n.p.o. status, and administration of antibiotics, he has had signific ant improvement in his diarrhea, now having approximately 3-5 semi-solid bowel movements per day and complete resolution of the nausea and vomiting. Infectious workup for his diarrhea was negative for Campylobacter, Clostridium difficile, Salmonella, Shigella, and E. coli. Infectious workup for Entam oeba histolytica is also still pending, but with improvement in his symptoms with more conservative m easures, this is unlikely. At this time, given the negative bacterial infectious stool workup and un likely jorgensen of parasitic infection or viral illness causing a viral gastroenteritis resulting in sign ificant diarrhea is most likely. RECOMMENDATIONS: 1. We would continue to hold PPI and hydroxyurea as possible sources of worsening diarrhea. 2. We will follow up on the labs for entamoeba histolytica antigen for possible parasitic infection. 3. Continue loperamide. 4. Continue conservative measures with IV fluids in addition to advancing the diet as tolerated. 5. Colonoscopy. Repeat colonoscopy is not indicated at this time. We will continue to follow. Please call with any questions.
[2017-10-09] MEDS: Sodium Chloride 0.9% 1,000 ML IV SCH (00:27)
[2017-10-09] MEDS: Famotidine 20 MG TAB PO SCH (08:44)
[2017-10-09] MEDS: Hydroxyurea 500 MG CAP PO SCH (08:44)
[2017-10-09] MEDS: Heparin 5,000 UNITS/ML VIAL SC SCH ×2 (08:45→21:40)
[2017-10-09] MEDS: Saccharomyces boulardii 250 MG CAP PO SCH (08:45)
--- NOTE | 2017-10-09 17:02 | PDOC.PN ---
- Subjective Encounter Start Date: 10/09/17 Encounter Start Time: 09:30 Subjective: pt up in bed states his diarrhea has improved - Objective Resuscitation Status: Resuscitation Status FULL:Full Resuscitation Vital Signs & Weight: Vital Signs (12 hours) Temp Pulse Resp BP Pulse Ox 10/09/17 16:00 97.6 F 90 22 H 115/72 96 10/09/17 12:45 98.4 F 87 22 H 131/78 97 10/09/17 08:00 97.6 F 87 20 131/71 94 L Weight Admit Weight 142 lb 8 oz Weight 140 lb I&O: 10/08/17 10/09/17 10/10/17 06:59 06:59 06:59 Intake Total 1620 3960 Output Total 200 300 Balance 1420 3660 Result Diagrams: 10/08/17 05:05 10/08/17 05:05 Phys Exam - Physical Examination HEENT: PERRLA, moist MMs, sclera anicteric, TM's clear, oral pharynx no lesions , 2+ tonsils Neck: no nodes, no JVD, supple, full ROM Respiratory: no wheezing, no rales, no rhonchi, wheezing present, clear to auscultation bilateral Cardiovascular: RRR, no significant murmur, no rub, gallop, irregular Gastrointestinal: soft enlarged spleen, mild tenderness on palpation to luq Musculoskeletal: no edema, pulses present, edema present Dx/Plan - Plan 1) nausea/vomiting 2) diarrhea 3) PCV 4) elevated wbc plan: pt's diarrhea has improved, infectious work up is negative. Pt is tolerating his oral intake. pt back on hydrea. parasite work up is negative. possible discharge when ok with GI. * . Review of Systems - Review of Systems Eyes: negative: Pain, Vision Change, Conjunctivae Inflammation, Eyelid Inflammation, Redness, Other ENT: negative: Ear Pain, Ear Discharge, Nose Pain, Nose Discharge, Nose Congestion, Mouth Pain, Mouth Swelling, Throat Pain, Throat Swelling, Other Respiratory: negative: Cough, Dry, Shortness of Breath, Hemoptysis, SOB with Excertion, Pleuritic Pain, Sputum, Wheezing Cardiovascular: negative: chest pain, palpitations, orthopnea, paroxysmal nocturnal dyspnea, edema, light headedness, other Gastrointestinal: negative: Nausea, Vomiting, Abdominal Pain, Diarrhea, Constipation, Melena, Hematochezia, Other Genitourinary: negative: Dysuria, Frequency, Incontinence, Hematuria, Retention , Other - Medications/Allergies Allergies/Adverse Reactions: Allergies Allergy/AdvReac Type Severity Reaction Status Date / Time No Known Allergies Allergy Verified 12/01/16 14:12 Medications: Current Medications Acetaminophen (Tylenol) 650 mg PO Q4H PRN PRN Reason: Headache/Fever or Pain Hydrocodone Bitart/Acetaminophen ([place] 5/325) 1 tab PO Q4H PRN PRN Reason: Moderate Pain (4-6) Al Hydroxide/Mg Hydroxide (Maalox) 30 ml PO Q6H PRN PRN Reason: Heartburn or Indigestion Amlodipine Besylate (Norvasc) 5 mg PO HS [facility] Last Admin: 10/08/17 20:42 Dose: 5 mg Artificial Tears (Tears Renewed 15ml Bottle) 0 drop EA EYE PRN PRN PRN Reason: Dry Eyes Aspirin (Ecotrin) 81 mg PO HS [facility] Last Admin: 10/08/17 20:43 Dose: 81 mg Famotidine (Pepcid) 20 mg PO DAILY [facility] Last Admin: 10/09/17 08:44 Dose: 20 mg Guaifenesin (Robitussin Sf) 200 mg PO Q4H PRN PRN Reason: Cough Heparin Sodium (Porcine) (Heparin) 5,000 units SC BID [facility] Last Admin: 10/09/17 08:45 Dose: 5,000 units Hydralazine HCl (Apresoline) 10 mg SLOW IVP Q4H PRN PRN Reason: Systolic BP > 180 Hydroxyurea (Hydrea) 500 mg PO DAILY [facility] Last Admin: 10/09/17 08:44 Dose: 500 mg Loperamide HCl (Imodium) 2 mg PO PRN PRN PRN Reason: Diarrhea/Loose Stools Loratadine (Claritin) 10 mg PO DAILYPRN PRN PRN Reason: Sinus Symptoms Mineral Oil/White Petrolatum (Eucerin Cream) 0 gm TOP BIDPRN PRN PRN Reason: Dry Skin Ondansetron HCl (Zofran Odt) 4 mg PO Q6H PRN PRN Reason: Nausea/Vomiting Last Admin: 10/08/17 14:21 Dose: 4 mg Ondansetron HCl (Zofran) 4 mg IVP Q6H PRN PRN Reason: Nausea/Vomiting Phenol (Chloraseptic [place] 180 Ml Bot) 0 ml PO PRN PRN PRN Reason: Sore Throat Promethazine HCl (Phenergan) 12.5 mg SLOW IVP Q6H PRN PRN Reason: Nausea/Vomiting Saccharomyces Boulardii (Florastor) 250 mg PO DAILY [facility] Last Admin: 10/09/17 08:45 Dose: 250 mg Sertraline HCl (Zoloft) 50 mg PO DAILY [facility] Last Admin: 10/09/17 08:44 Dose: 50 mg Sodium Chloride ([place] Nasal [place] 0.65%) 0 ml EA NARE QIDPRN PRN PRN Reason: Nasal Congestion Terazosin HCl (Hytrin) 10 mg PO HS [facility] Last Admin: 10/08/17 20:43 Dose: 10 mg Zolpidem Tartrate (Ambien) 5 mg PO HSPRN PRN PRN Reason: Insomnia
--- NOTE | 2017-10-09 18:16 | PRG ---
DATE OF SERVICE: 10/09/2017 REASON FOR CONSULTATION: Diarrhea. SUBJECTIVE: The patient states that he is feeling much better this morning with no further episodes of nausea or vomiting. He was able to eat all of his meals within the last 24 hours without incident . However, he still states he has approximately 3-6 semisolid bowel movements over the last 24 hours , characterized as smaller volume loose stools. Currently, denies any nausea, vomiting, fevers, chil ls, abdominal pain, or GI bleeding. OBJECTIVE: VITAL SIGNS: Temperature 97.6, pulse 90, blood pressure 115/72, respiratory rate 22, satting 96% on room air. GENERAL: The patient is lying in bed, in no acute distress. He is alert and oriented x4. CARDIOVASCULAR: Regular rate and rhythm with a 3/6 systolic murmur best heard at the right upper kacie rnal border. RESPIRATORY: Clear to auscultation bilaterally. ABDOMEN: Normoactive bowel sounds, soft, nontender, nondistended. EXTREMITIES: No cyanosis, clubbing or edema. LABORATORY DATA: No current studies available for review. IMAGING DATA: No current GI imaging is available for review. ASSESSMENT: The patient is a 77-year-old male with multiple past medical problems presenting with ac hopi on chronic diarrhea. Diarrhea. The patient presenting with a history of chronic diarrhea alternating with episodes of con stipation that has been present for the last year; however, approximately 4-5 days prior to admission , he had acute onset of worsening of the diarrhea, having approximately 20+ bowel movements per day. Since admission, he has had a full infectious stool workup that has been negative thus far for Campy lobacter, Clostridium difficile, Salmonella, Shigella and E. coli. Workup for Entamoeba histolytica is still pending at this time. At this time, given the negative bacterial infectious stool workup, c linical improvement in his clinical status. A viral gastroenteritis is the more likely explanation f or acute onset of his worsening diarrhea that has responded to more conservative management. RECOMMENDATIONS: 1. Continue to hold PPI and hydroxyurea as possible sources of worsening diarrhea. 2. We will follow up on the labs for entamoeba histolytica antigen for possible parasitic infection (albeit unlikely at this time). 3. Continue loperamide as needed for diarrhea. 4. Continue conservative measures with IV fluids if the patient is not tolerating oral intake. 5. Agree with addition of saccharomyces boulardii for probiotic purposes. 6. Place the patient on higher fiber diet for stool bulking measures. We will sign off at this time. Please call with any additional questions. The patient is with stabi lization of the patient's clinical status. He can be discharged with close follow up in the GI clini c within 1-[address] Earl.
[2017-10-09] MEDS: Terazosin HCl 5 MG CAP PO SCH (21:38)
[2017-10-09] MEDS: Aspirin 81 mg Enteric Coated Tablet PO SCH (21:38)
[2017-10-09] MEDS: Amlodipine 5 MG TAB PO SCH (21:39)
[2017-10-10] MEDS: Saccharomyces boulardii 250 MG CAP PO SCH (09:15)
[2017-10-10] MEDS: Hydroxyurea 500 MG CAP PO SCH (09:15)
[2017-10-10] MEDS: Famotidine 20 MG TAB PO SCH (09:15)
[2017-10-10] MEDS: Heparin 5,000 UNITS/ML VIAL SC SCH (09:16)
[2017-10-10 12:20] VITALS: TEMP 97.4
[2017-10-10 14:13] VITALS: BP 114/75
--- NOTE | 2017-10-10 15:21 | DIS ---
DATE OF ADMISSION: 10/06/2017 DATE OF DISCHARGE: 10/10/2017 DISCHARGE DIAGNOSES: 1. Nausea and vomiting. 2. Diarrhea. 3. Polycythemia vera. 4. Elevated WBCs. HISTORY OF PRESENT ILLNESS/HOSPITAL COURSE: Patient is a very pleasant 77-year-old male with a histo ry of polycythemia vera, who follows up with Oncology, who presented to the hospital with abdominal p ain, nausea, vomiting, and diarrhea on 10/06/2017. Patient initially underwent a CT abdomen and pelv is, which essentially was unremarkable except for the massive splenomegaly. A CT scan did show diver ticulosis without any diverticulitis. Patient then also was seen by Gastroenterology for his nausea, vomiting, and diarrhea. The patient did have microbiology including C. difficile, which was negativ e; parasite screen, which was negative; Campylobacter, Shigella, salmonella was also negative. Mary Jo matamoros had stool cultures that were sent, which was also negative. The patient, over the hospital course , continued to improve. The patient was able to tolerate oral liquids and food. The patient's bowel movements are back to baseline. He will be discharged home. Follow up with Dr. Earl in 1-2 weeks a nd also with Dr. Clark in 1-2 weeks. DISCHARGE MEDICATIONS: As the following, 1. Zoloft 50 mg daily. 2. Prevacid 30 mg b.i.d. 3. Aspirin 81 mg daily. 4. Amlodipine 5 mg at bedtime. 5. Terazosin 10 mg q.h.s. 6. Hydrea 500 mg p.o. daily. 7. Florastor 250 mg p.o. daily. PHYSICAL EXAMINATION: VITAL SIGNS: Temperature of 98.3, heart rate 84, respiratory rate 16, blood pressure of 114/75. GENERAL: He is awake, alert, oriented x3, does not appear in any distress. CARDIOVASCULAR: S1 and S2 present. No murmurs, rubs, or gallops. ABDOMEN: Soft, mild tenderness to left upper and left lower quadrant. Splenomegaly is appreciated. EXTREMITIES: No edema. DISCHARGE INSTRUCTIONS: The patient will be discharged home. Follow up with PCP, GI, and Dr. Marbin scott, who is the oncologist.
--- NOTE | 2017-10-11 20:31 | PQF ---
VIDAL WYMAN TEZ RICHARDSON [id number] CLINICAL DOCUMENTATION CLARIFICATION FORM: POST DISCHARGE Addendum to original discharge summary date: ____ Late entry note date: __ DATE: 10/11/17 ATTN: Please exercise your independent, professional judgment in responding to the clarification form. Clinical indicators are provided on the bottom of this form for your review Patient admitted with diarrhea due to: Please check appropriate box(s): [ x] possible Vital gastroenteritis [ ] Adverse effects of antibiotics [ ] Other diagnosis [ ] Unable to determine In addition, please specify: Present on Admission (POA): [x ] Yes [ ] No [ ] Unable to determine For continuity of documentation, please document condition throughout progress notes and discharge summary. Thank You. CLINICAL INDICATORS - SIGNS / SYMPTOMS / LABS Diarrhea RISK FACTORS SANDI TREATMENTS: GI Consult Stool cultures (This form is maintained as a part of the permanent medical record) 2014 [employer] All Rights Reserved [facility]
--- NOTE | 2017-12-01 17:15 | EKG ---
Test Reason : Blood Pressure : / mmHG Vent. Rate : 082 BPM Atrial Rate : 082 BPM P-R Int : 144 ms QRS Dur : 124 ms QT Int : 378 ms P-R-T Axes : 080 -78 062 degrees QTc Int : 441 ms Normal sinus rhythm with sinus arrhythmia Possible Left atrial enlargement Right bundle branch block Left anterior fascicular block Bifascicular block No STEMI Inverted T wave V1-V3 Abnormal ECG Confirmed by SAVANNAH Sanchez, JOHN ([id number]), acquisition editor YOLANDA HENDRIX ([id number]) on 12/01/2017 5:14:42 PM Referred By: SAVANNAH Confirmed By:JOHN NUÑEZ M.D.
== END 2017-10-10 14:09 | disposition home or self-care (01) | DRG 392 ==
LOC: ERS 02:00 → ERHOLD 06:31 → IMCU/EMU 08:02 → ONC 10-07 13:36 → SURG B 10-09 11:21
PROVIDERS: ADMIT Internal Medicine; ATTEND Internal Medicine
DX: K57.90 Diverticulosis of intestine, part unspecified, without perforation or abscess without bleeding (principal); N17.9 Acute kidney failure, unspecified; E44.0 Moderate protein-calorie malnutrition; Z68.1 Body mass index [BMI] 19.9 or less, adult; K52.1 Toxic gastroenteritis and colitis; I10 Essential (primary) hypertension; Z79.899 Other long term (current) drug therapy; D45 Polycythemia vera; R16.1 Splenomegaly, not elsewhere classified; Z86.010 Personal history of colon polyps; Z85.828 Personal history of other malignant neoplasm of skin; K21.9 Gastro-esophageal reflux disease without esophagitis; H90.5 Unspecified sensorineural hearing loss; F03.90 Unspecified dementia, unspecified severity, without behavioral disturbance, psychotic disturbance, mood disturbance, and anxiety; Z79.82 Long term (current) use of aspirin; T36.95XA Adverse effect of unspecified systemic antibiotic, initial encounter
CPT/HCPCS: 36415; 74176; 80053; 80069; 81003; 81015; 82553; 83690; 83735; 84484; 85025; 87045; 87046; 87324; 87328; 87329; 87337; 87449; 87899; 93005; 96360; 96361; G8978-GP-CI; G8979-GP-CI; G8980-GP-CI; J1644; J1956; Q0162

== ENCOUNTER 2017-10-23 17:16 | Inpatient (IN) | payer MEDICARE, BC ==
[2017-10-23] MEDS ORDERED: Acetaminophen 650 MG Suppository PR PRN (19:15)
[2017-10-23] MEDS ORDERED: Ondansetron HCl/PF 4 MG/2 ML Vial IVP PRN (19:15)
[2017-10-23] MEDS ORDERED: Acetaminophen 325 MG TAB PO PRN (19:15)
[2017-10-23] MEDS ORDERED: Ondansetron ODT 4 MG TAB PO PRN (19:15)
[2017-10-23] MEDS ORDERED: Bisacodyl 5 MG TAB PO PRN (19:15)
[2017-10-23] MEDS: Terazosin HCl 5 MG CAP PO SCH (21:44)
[2017-10-23] MEDS: Famotidine 20 MG TAB PO SCH (21:45)
[2017-10-23] MEDS: Sodium Chloride 0.9% 1,000 ML IV SCH (21:46)
[2017-10-24 05:25] LABS: #Basophils 0.2 thou/uL (0.0-0.2); #Eosinphils 0.5 thou/uL (0.0-0.7); #Lymphocytes 1.7 thou/uL (1.20-3.40); #Monocytes 0.4 thou/uL (0.11-0.59); #Neutrophils 14.5 thou/uL (1.40-6.50); %Basophils 1.3 % (0.0-1.0); %Lymphocytes 9.8 % (21.0-51.0); %Monocytes 2.5 % (0.0-10.0); %Neutrophils 83.4 % (42.0-75.0); Hemoglobin 9.4 g/dL (14.0-18.0); Mean Corpuscular HGB CONC 30.5 g/dL (32.0-36.0); Mean Corpuscular Hemoglobin 28.1 pg (27.0-31.0); Mean Corpuscular Volume 91.9 fl (80.0-94.0); Mean Platelet Volume 7.8 fL (7.4-10.4); Platelet Count 562 thou/uL (130-400); RBC Distribution Width 18.3 % (11.5-14.5); Red Blood Cell (RBC) Count 3.33 mill/uL (4.70-6.10); White Blood Cell (WBC) Count 17.3 thou/uL (4.8-10.8)
[2017-10-24 05:37] LABS: Anion Gap 11 mmol/L (10-20); BUN (Urea Nitrogen) 41 mg/dL (8.4-25.7); Calc. Creatinine Clearance 30 mL/min (70-130); Calcium 8.4 mg/dL (7.8-10.44); Carbon Dioxide 23 mmol/L (23-31); Chloride 105 mmol/L (98-107); Estimated GFR-MDRD 36; Glucose 86 mg/dL (83-110); Potassium 4.6 mmol/L (3.5-5.1); Sodium 134 mmol/L (136-145)
[2017-10-24 08:23] VITALS: BMI 17.6
--- NOTE | 2017-10-24 08:56 | PDOC.PN ---
- Subjective Encounter Start Date: 10/24/17 Encounter Start Time: 08:54 Subjective: alert, appropriate, no complaints - Objective Resuscitation Status: Resuscitation Status FULL:Full Resuscitation MAR Reviewed: Yes Vital Signs & Weight: Vital Signs (12 hours) Temp Pulse Resp BP BP Pulse Ox 10/24/17 08:05 97.6 F 72 22 H 133/80 97 10/24/17 04:00 97.2 F L 74 16 139/90 96 10/24/17 00:00 98.3 F 77 20 152/86 H 96 Weight Admit Weight 135 lb 8 oz Weight 133 lb 8 oz I&O: 10/23/17 10/24/17 10/25/17 06:59 06:59 06:59 Intake Total 250 Output Total 600 Balance -350 Result Diagrams: 10/24/17 04:45 10/24/17 04:45 Phys Exam - Physical Examination Neck: no JVD Respiratory: clear to auscultation bilateral Cardiovascular: RRR, no significant murmur Gastrointestinal: soft, non-tender, positive bowel sounds Musculoskeletal: no edema Dx/Plan (1) CKD (chronic kidney disease) stage 3, GFR 30-59 ml/min Code(s): N18.3 - CHRONIC KIDNEY DISEASE, STAGE 3 (MODERATE) Status: Chronic (2) Hypertension Code(s): I10 - ESSENTIAL (PRIMARY) HYPERTENSION Status: Chronic Qualifiers: Hypertension type: essential hypertension Qualified Code(s): I10 - Essential (primary) hypertension (3) Leucocytosis Code(s): D72.829 - ELEVATED WHITE BLOOD CELL COUNT, UNSPECIFIED Status: Chronic Comment: due to polycythemia vera (4) Polycythemia vera Code(s): D45 - POLYCYTHEMIA VERA Status: Chronic (5) Anemia Code(s): D64.9 - ANEMIA, UNSPECIFIED Status: Acute Qualifiers: Anemia type: unspecified type Qualified Code(s): D64.9 - Anemia, unspecified - Plan rpt CBC, BMP now -: discuss with Dr Clark, GI -: stool for occult blood * .
[2017-10-24] MEDS ORDERED: Hydroxyurea 500 MG CAP PO SCH (09:00)
--- NOTE | 2017-10-24 09:01 | HP ---
PRIMARY CARE PHYSICIAN: Dr. Guardado. PRIMARY AUTO [employer]ERSHIP PORTER: Dr. Earl. PRIMARY HEM/ONCOLOGIST: Dr. Clark. REASON FOR ADMISSION: Hypotension and a drop in hemoglobin with a GI bleed. HISTORY OF PRESENT ILLNESS: This is a 77-year-old white male with a known history of polycythemia ve ra followed by Dr. Clark. He was admitted to the hospital here about 2-1/2 weeks ago for nausea, vomiting, and diarrhea. He had some acute renal failure with a diarrhea though this improved with IV fluids. He was seen by Gastroenterology. They did an extensive workup, was all negative for C. dif f bacterial infection or any other etiology of the symptoms. The patient said it was eventually impr elena during the hospitalization. He was discharged home. He has not had any nausea, vomiting or berlin rrhea since; however, he has continued to feel weak and just bad overall then. The patient had some blood work done by Dr. Clark last week, which showed a severely elevated platelet count along with a hemoglobin in the 11s then he had blood work done again yesterday. Blood work done yesterday show ed improvement after an increase in his dose of hydroxyurea and decrease in his platelet count down t o one million, but also drop in his hemoglobin with a hemoglobin dropping to 9. The patient yesterda y did have some bowel movement with a little bit of mucus and some blood. He has not had any diarrhe a and has actually been having some bowel movements instead of diarrhea and so the patient went to Dr Rasheeda Earl's office today. He was seen either by Dr. Earl or Dr. Del Angel and then the patient's blood pre ssure noted to be in the 80s systolic and so he was direct admitted to the hospital here. The patien t's creatinine also had climbed to 2, which was back up to where it was when he was dehydrated in his last admission. The patient claims to be drinking plenty of fluids. On arrival at the hospital, hi s blood pressure is actually back up to 123 systolic. He just feels weak overall. PAST MEDICAL HISTORY: Reviewed with patient and family as well from the chart. 1. Polycythemia vera. 2. Hypertension. 3. Macular degeneration. 4. Sensorineural hearing loss. 5. Mild dementia. 6. Significant peripheral vascular disease with previous iliac artery aneurysm as well, both repaire d. 7. Previous colon polyps. 8. Diverticulosis. 9. Benign prostatic hyperplasia. PAST SURGICAL HISTORY: 1. Abdominal aortic aneurysm repair. 2. Iliac artery aneurysm repair. 3. Bilateral cataract surgery. 4. Cholecystectomy. 5. Multiple colonoscopies with previous polypectomies, complicated by significant GI bleed. ALLERGIES: No known drug allergies, but he does have adverse effects from FLUOROQUINOLONES. CURRENT MEDICATIONS: 1. Hydroxyurea 500 mg 2 caps daily. 2. Amlodipine 5 mg at night. 3. Aspirin 81 mg daily. 4. Prevacid 30 mg daily. 5. Zoloft 50 mg daily. 6. Terazosin 10 mg at night. SOCIAL HISTORY: No current tobacco. No alcohol or illicit drug use. He quit smoking many years ago , lives with his of 53 years. FAMILY HISTORY: Mother of a massive myocardial infarction. Three sisters have of cancer, one with stomach cancer, one with lung cancer and another sister with throat cancer. Brother of a massive myocardial infarction. REVIEW OF SYSTEMS: Constitutional: No fevers or chills. Eyes: No double vision or blurred vision. He does have some chronic degenerative changes for his macular degeneration, has not changed recent ly. ENT: He has chronic nasal congestion and drainage from allergies. No sore throat. Cardiovascu lar: No chest pain, no palpitations or racing heart. Pulmonary: No coughing, wheezing or shortness of breath. Gastrointestinal: No abdominal pain, no nausea or vomiting, no diarrhea. See HPI for t he blood and mucus. Genitourinary: No dysuria or hematuria. Musculoskeletal: No specific muscle a ches or joint pains. Skin: No rashes or lesions noted. Neurologic: No numbness, tingling or focal weakness. He has had some generalized weakness. PHYSICAL EXAMINATION: VITAL SIGNS: Blood pressure 129/78, pulse 77, respirations 20, temperature 98.5, O2 sat 95% on room air. GENERAL: This is a well-developed, thin elderly man, in no acute distress. HEENT: Pupils are equal, round, and reactive to light. Extraocular movements are intact. Princess [place] conj unctivae. Oropharynx is clear without lesions, erythema or exudate. NECK: Supple, no lymphadenopathy, no thyroid nodules or enlargement, no JVD. HEART: Regular rate and rhythm, no murmurs, rubs or gallops. LUNGS: Clear to auscultation bilaterally, no wheezes, crackles or rhonchi. ABDOMEN: Soft, nontender to palpation. He does have a significant splenomegaly, but no other organo megaly, no masses, normoactive bowel sounds. EXTREMITIES: No clubbing, cyanosis or edema. SKIN: No rashes or lesions noted. NEUROLOGIC: He has intact strength and reflexes in extremities and no facial droop. PSYCHIATRIC: The patient is alert and oriented x3. He does have some problems remembering the histo ry and getting the order of events correct due to his dementia. LABORATORY DATA: I did review the labs that the patient brought in from his visit with Dr. Breen. This does show white blood cell count of 30,000, which is consistent with previous hemoglobin of 9.2 down from 11, hematocrit 30.2, MCV 86.9, platelet count 125,000. ASSESSMENT AND PLAN: 1. Hypotension in the office, currently resolved, I am going to hold his amlodipine. We will contin ue his BPH medication. We will check him for orthostatic hypotension here in the hospital. We will monitor his blood pressure overnight. We will keep him on telemetry and get an EKG and we will run f luids at 100 mL per hour normal saline. 2. Bloody mucoid bowel movement. He has not had a massive amount per the family over the last coupl e of days, but he has had some fresh blood with bowel movements and then now he has a bit of a drop i n his hemoglobin, concern for lower gastrointestinal bleed. We will let Dr. Earl know that the patie nt has arrived and he can work this up and we will monitor his hemoglobin closely and make sure it do es not drop significantly more and he does not need any blood transfusions. 3. Polycythemia vera with significant white blood cell count elevation and platelet count elevation, seems to be improving a little bit with increased hydroxyurea. We will consult Dr. Breen, Hematol ogy/Oncology, for continued management. 4. Gastrointestinal prophylaxis. Keep the patient on his Prevacid. 5. Deep venous thrombosis prophylaxis. Put the patient on sequential compression devices while in b ed, but no other anticoagulants and we will hold his aspirin due to his drop in blood count and gastr ointestinal bleed. 6. Code status. I did discuss this with the patient and his family. He is a FULL CODE. Should he be incapacitated, his is his medical decision maker, her name is Parul Crews.
[2017-10-24] MEDS: Famotidine 20 MG TAB PO SCH (09:35)
[2017-10-24 09:43] LABS: Hemoglobin 9.8 g/dL (14.0-18.0); Mean Corpuscular HGB CONC 30.9 g/dL (32.0-36.0); Mean Corpuscular Hemoglobin 28.4 pg (27.0-31.0); Mean Platelet Volume 7.1 fL (7.4-10.4); Platelet Count 480 thou/uL (130-400); RBC Distribution Width 18.3 % (11.5-14.5); Red Blood Cell (RBC) Count 3.44 mill/uL (4.70-6.10); White Blood Cell (WBC) Count 15.4 thou/uL (4.8-10.8)
[2017-10-24 10:23] LABS: ALT (SGPT) 7 U/L (8-55); AST (SGOT) 12 U/L (5-34); Albumin 3.5 g/dL (3.4-4.8); Alkaline Phosphatase 66 U/L (40-150); Anion Gap 10 mmol/L (10-20); BUN (Urea Nitrogen) 40 mg/dL (8.4-25.7); Bilirubin, Total 0.4 mg/dL (0.2-1.2); Calc. Creatinine Clearance 32 mL/min (70-130); Calcium 8.5 mg/dL (7.8-10.44); Carbon Dioxide 24 mmol/L (23-31); Chloride 106 mmol/L (98-107); Estimated GFR-MDRD 39; Globulin 2.8 g/dL (2.4-3.5); Glucose 91 mg/dL (83-110); Potassium 4.8 mmol/L (3.5-5.1); Protein, Total 6.3 g/dL (5.8-8.1); Sodium 135 mmol/L (136-145)
[2017-10-24 10:57] LABS: Band 1 % (5-11); Eosinophils 5 % (0-10); Hypersemented Neutrophil MODERATE; Hypochromia SLIGHT = 6-15 cells (100X) (0-5/hpf); Lymphocytes 5 % (21-51); MDiff Complete? YES; Monocytes 3 % (0-10); Neutrophil 81 % (42-75); PLT Morphology Comment Appears Increased; Polychromasia MODERATE = 3-4 cells (100X) (0-2/hpf); Reflex for Review?? NO
--- NOTE | 2017-10-24 17:38 | RAD ---
ABDOMEN ONE VIEW 10/24/17 HISTORY: Obstipation. COMPARISON: CT from 10/06/17. FINDINGS: There is aortobiiliac graft. There is embolization coils in the right pelvis. Numerous calcifications projecting over the left renal shadow. No dilated air filled loops of large or small bowel. No air fluid levels. IMPRESSION: 1. No evidence of acute inflammatory process in the abdomen. No evidence of bowel obstruction. 2. Splenomegaly. 3. Left renal calcifications. POS: [facility]
--- NOTE | 2017-10-24 20:26 | EKG ---
Test Reason : Blood Pressure : / mmHG Vent. Rate : 077 BPM Atrial Rate : 077 BPM P-R Int : 156 ms QRS Dur : 120 ms QT Int : 384 ms P-R-T Axes : 080 -77 072 degrees QTc Int : 434 ms Normal sinus rhythm Right bundle branch block Left anterior fascicular block Bifascicular block Abnormal ECG When compared with ECG of 06-OCT-2017 02:47, (Unconfirmed) No significant change was found Confirmed by RISHABH MARQUEZ (2) on 10/24/2017 8:26:02 PM Referred By: DIMPLE Confirmed By:RISHABH MARQUEZ
[2017-10-24] MEDS: Terazosin HCl 5 MG CAP PO SCH (21:43)
[2017-10-24] MEDS: Hydroxyurea 500 MG CAP PO SCH (21:43)
[2017-10-24 23:19] LABS: Creatinine, Urine 34.54 mg/dL (63-166)
--- NOTE | 2017-10-25 00:02 | CON ---
DATE OF CONSULTATION: 10/24/2017 REASON FOR CONSULTATION: Myeloproliferative disorder. HISTORY OF PRESENT ILLNESS: Mr. Crews is a 77-year-old male who was diagnosed with thromb ocytosis and splenomegaly in 2006. In 2014, he had a leukocytosis and thrombocytosis with a platelet count of greater than a million. He was started on hydroxyurea and has been on hydroxyurea 500 mg d aily until recently. On 10/17/2017, he saw Dr. Clark and had a platelet count of 1,632,000. His white count was 45,000. His hydroxyurea was increased to 1000 mg daily. Approximately 5 days later, repeat CBC showed a white count of 30.3, hemoglobin of 9.2 and a platelet count of 1,000,000. The p atjayme has been struggling with GI complaints over the last few months and has had admission for dive rticulosis and diarrhea. He was seen by Dr. Earl's office yesterday, his blood pressure was low, so he was admitted to the hospital here. He was slightly dehydrated with his creatinine around [address] art[address] on IV fluids. His CBC on admission yesterday showed a white count of 17.3, hemoglobin of 9.4 a nd a platelet count of 962,000. GI has been consulted and is seeing the patient. On the patient's [place] [facility] admission in late October, he did have an abdominal and pelvis CT, which showed massive splenomegaly with the spleen measuring 25 x 16.1 cm. The patient is resting comfortably. He denies any complaint s at this time. He is in fact hypertensive today. No problems with nausea, vomiting or abdominal pa in. He does complain of a positional hypotension. PAST MEDICAL HISTORY: 1. Myeloproliferative syndrome. 2. Benign prostatic hypertrophy. 3. Hypertension. 4. Diverticulosis. 5. GI reflux. 6. Elliott's esophagus. 7. History of chronic obstructive pulmonary disease. 8. High cholesterol. PAST SURGICAL HISTORY: 1. Inguinal hernia repair. 2. Iliac stent placement. 3. Repair of aortic aneurysm. 4. Lumbar laminectomy. 5. Multiple colonoscopies. ALLERGIES: No known drug allergies. HOME MEDICATIONS 1. Amlodipine 5 mg daily. 2. Aspirin 81 mg daily. 3. Hydroxyurea 1000 mg daily. 4. Prevacid 30 mg b.i.d. 5. Florastor daily. 6. Zoloft 50 mg daily. 7. Hytrin 10 mg daily. FAMILY HISTORY: Both his brother and sister had myeloproliferative disorders and they are . SOCIAL HISTORY: , has 2 daughters, lives with his spouse. No alcohol, tobacco or illicit ger g use. REVIEW OF SYSTEMS: Ten-point review of systems is negative except for noted in HPI. PHYSICAL EXAMINATION: VITAL SIGNS: Temperature is 97.7, pulse is 70, respiratory rate 20, blood pressure is 173/94. He is 96% on room air. GENERAL: This is a well-developed, well-nourished male, in no acute distress. HEENT: Normocephalic, atraumatic. Pupils are equal and reactive to light. NECK: Supple. CARDIOVASCULAR: Regular rate and rhythm. LUNGS: Clear. ABDOMEN: Nontender. He does have a palpable spleen at his left pubis bone. EXTREMITIES: There is no clubbing, cyanosis or edema. SKIN: No rash. HEMATOLOGIC: There is no petechia or purpura. NEUROLOGIC: Nonfocal. PSYCHIATRIC: The patient is alert and oriented. PERTINENT LABORATORY AND X-RAYS: Current WBCs are 15.4, hemoglobin 9.8, hematocrit 31.6, platelet co unt 480,000, 81% neutrophils, 5% lymphocytes. Sodium is 135, potassium 4.8, chloride 106, CO2 is 24, BUN is 40, creatinine 1.71, calcium is 8.5. Ferritin is 11.4, total bilirubin is 0.4, AST is 12, AL T is 7, alkaline phosphatase is 66, LDH is 583. Serum total protein is 6.3, albumin 3.5, globulin 2. 8. ASSESSMENT: 1. Myeloproliferative disease. 2. Diverticulosis. 3. Questionable GI bleed. DISCUSSION: The patient was recently seen by Dr. Clark and his hydroxyurea was increased. He has not had anemia until recently. There is some concern that his myeloproliferative disorder is transf orming either to a myelofibrosis or a leukemia. He may need a bone marrow in the future, which would be done in the outpatient setting. Currently, we recommend continuing hydroxyurea 500 mg b.i.d. and providing supportive care. I will have the pathologist look at his blood with a peripheral smear. Thank you for the consult. We will follow his hospital course closely.
--- NOTE | 2017-10-25 00:26 | CON ---
DATE OF CONSULTATION: 10/24/2017 CONSULTING PHYSICIAN: Dr. Mo. REASON FOR CONSULTATION: Acute kidney. REASON FOR ADMISSION: Hypotension, weakness. HISTORY OF PRESENT ILLNESS: A 77-year-old male with history of polycythemia, hypertension, macular d egeneration, colon polyp, diverticulosis, came to the hospital with above complaints. The patient wa s found to have elevated creatinine of 2.08. Patient and family reports frequent dehydration and is not feeling well. He was having diarrhea and vomiting lately, but the last few days, he was very wea k and not able to eat well with low appetite and was brought to the hospital. He was also found to b e hypotensive in the 80s in Dr. Earl's office. No fever or chills. No nausea or vomiting reported t o me. No chest pain. FAMILY HISTORY: Positive for polycythemia, hypertension, macular degeneration, sensorineural hearing loss, mild dementia, peripheral vascular disease, colon polyps, diverticulosis, BPH. PAST MEDICAL HISTORY: AAA repair, iliac artery aneurysm, bilateral cataract surgery, cholecystectomy , colonoscopy. HOME MEDICATIONS: Hydroxyurea, amlodipine, aspirin, Prevacid, Florastor, terazosin. ALLERGIES: No known drug allergies. SOCIAL HISTORY: No smoking, alcohol or drugs. FAMILY HISTORY: No history of any kidney disease. REVIEW OF SYSTEMS: The following complete review of systems was negative, unless otherwise mentioned in the HPI or below. Constitutional: Weight loss or gain, ability to conduct usual activities. Sk in: Rash, itching. Eyes: Double vision, pain. ENT/Mouth: Nose bleeding, neck stiffness, pain, te nderness. Cardiovascular: Palpitations, dyspnea on exertion, orthopnea. Respiratory: Shortness of breath, wheezing, cough, hemoptysis, fever, or night sweats. Gastrointestinal: Poor appetite, abdo myrtle pain, heartburn, nausea, vomiting, constipation, or diarrhea. Genitourinary: Urgency, frequen cy, dysuria, nocturia. Musculoskeletal: Pain, swelling. Neurologic/Psychiatric: Anxiety, depressi on. Allergy/Immunologic: Skin rash, bleeding tendency. PHYSICAL EXAMINATION: GENERAL: This is a thin-built male, in no apparent distress. VITAL SIGNS: Temperature 97.6, pulse 72, respiratory rate 18, blood pressure 133/89. HEENT: Atraumatic, normocephalic. Oral mucosa is moist. NECK: Supple. CARDIOVASCULAR: S1, S2 heard. Rate and rhythm regular. RESPIRATORY: Clear. MUSCULOSKELETAL: 1+ edema. DERMATOLOGIC: No skin rash. NEUROLOGIC: Alert, awake. PSYCHIATRIC: Normal mood and affect. LABORATORY: Creatinine is 1.71, potassium is 4.8, hemoglobin is 9.8. ASSESSMENT AND PLAN: 1. Acute kidney injury on chronic kidney disease, most likely from volume depletion, getting better with IV hydration. Continue IV hydration. 2. Anemia, rule out any bleed. 3. Leukocytosis. 4. History of polycythemia. 5. Mild hyponatremia 6. Edema, controlled. 7. Hypertension, stable. 8. We will avoid nephrotoxins. Continue hydration as tolerated. We will follow. Thank you for the consult.
[2017-10-25] MEDS: Sodium Chloride 0.9% 1,000 ML IV SCH ×5 (04:13→11:00)
[2017-10-25 06:14] LABS: Anisocytosis SLIGHT = 6-15 cells (100X) (0-5/hpf); Eosinophils 6 % (0-10); Hemoglobin 9.6 g/dL (14.0-18.0); Hypersemented Neutrophil MODERATE; Lymphocytes 10 % (21-51); MDiff Complete? YES; Mean Corpuscular HGB CONC 30.3 g/dL (32.0-36.0); Mean Corpuscular Hemoglobin 27.9 pg (27.0-31.0); Mean Platelet Volume 7.5 fL (7.4-10.4); Monocytes 2 % (0-10); Neutrophil 82 % (42-75); Ovalocytes MODERATE= 6-15 cells (100X) (0-1/hpf); PLT Morphology Comment Appears Increased; Platelet Count 412 thou/uL (130-400); RBC Distribution Width 18.1 % (11.5-14.5); Red Blood Cell (RBC) Count 3.45 mill/uL (4.70-6.10); Tear Drops SLIGHT = 2-5 cells (100X) (0-1/hpf); White Blood Cell (WBC) Count 12.2 thou/uL (4.8-10.8)
--- NOTE | 2017-10-25 07:52 | PQF ---
CLINICAL DOCUMENTATION IMPROVEMENT CLARIFICATION FORM: ICD-10 Updated PLEASE DO AN ADDENDUM TO THE PROGRESS NOTE WITH ANY DOCUMENTATION UPDATES OR ADDITIONS AND CARRY THROUGH TO DC SUMMARY. THANK YOU. Date: 10/25 ATTN: DR. RE HINKLE Please exercise your independent, professional judgment in responding to the clarification form. Clinical indicators are provided on the bottom of this form for your review Please check appropriate box(s): [ ] Protein Calorie Malnutrition: [ ] Mild [ ] Moderate [ ] Severe [ ] Other Malnutrition (please specify) __ [ ] Underweight without malnutrition [ ] Cachexia [ ] Other diagnosis [ x ] Unable to determine CLINICAL INDICATORS - SIGNS / SYMPTOMS / LABS BMI: 17.6 KNITTER HAND ASSESSMENT 10/24: 11% WEIGHT LOSS IN APPROXIMATELY 1 MONTH D/T LIMITED INTAKE IN September D/T SEVERE NAUSEA & DIARRHEA RISK FACTORS: WEIGHT LOSS DEHYDRATION MYELOPROLIFERATIVE SYNDROME TREATMENTS: KNITTER HAND ASSESSMENT (10/24) NUTRITIONAL SUPPLEMENT (ENSURE ENLIVE TID) Moderate Malnutrition (in acute illness) Energy Intake: <75% of estimated energy requirement for > 7 days Weight Loss: 1-2%/1 week; 5%/ 1 month; 7.5%/3 months Other: mild body fat loss; mild muscle mass loss; mild fluid accumulation; Severe Malnutrition (in acute illness) Energy Intake: < 50% of estimated energy requirement for > 5 days Weight Loss: >1-2%/1 week; >5%/1 month; >7.5%/3 months Other: moderate body fat loss; moderate muscle mass loss; moderate- severe fluid accumulation; measurably reduced contact center director strength Moderate Malnutrition (in chronic illness) Energy Intake: <75% of estimated energy requirement for >1 month Weight Loss: 5%/1 month; 7.5%/3 months; 10%/6 months; 20%/1 year Other: mild body fat loss; mild muscle mass loss; mild fluid accumulation Severe Malnutrition (in chronic illness) Energy Intake: <75% of estimated energy requirement for >1 month Weight Loss: >5%/1 month; >7.5%/3 months; >10%/6 months; >20%/1 year Other: severe body fat loss; severe muscle mass loss; severe fluid accumulation; measurably reduced contact center director strength THANK YOU! Evelina (This form is maintained as a part of the permanent medical record) 2014 [employer]. All Rights Reserved Evelina Langley RN, BSN [email or web address] Office: [phone] [facility] CAN[facility] CENTERLuigi
--- NOTE | 2017-10-25 07:57 | CON ---
DATE OF CONSULTATION: 10/24/2017 REASON FOR CONSULTATION: Possible blood in his stool. HISTORY OF PRESENT ILLNESS: Henrik Crews is a 77-year-old with polycythemia vera. He may be having some type of transformation in his prior blood disorder. He was recently in the hospital from 10/06 to 10/10/2017 with nausea, vomiting, diarrhea, and ultimately had resolution of his symptoms. All cultures were negative. It was felt that he may have a viral illness. It was unclear how much m ay or may not have been related to his underlying polycythemia or ischemia, she had massive white cou nts and platelet counts. Before that admission, he had an EGD with Dr. Earl for nausea and vomiting, which was negative. Ultimately, he has been admitted for dehydration. In the hospital, he had a CA T scan with diverticulosis, but no inflammation. He has massive splenomegaly. He had stool for C. d iff and cultures, ova and parasites, Shigella, salmonella and Campylobacter all of which were normal. He was treated empirically with some Flagyl and ultimately discharged home. He presented to our of chio yesterday in followup, complaining of being very weak. He had a systolic blood pressure in the 80s in the office. He was dizzy when needs to stand up. He was not throwing up anymore, but stated he was having about 5-6 bowel movements per day. These are typically formed, his is pretty luisa ant it is not diarrhea anymore, but sometimes it is small pebble-like stools and sometimes there was some blood there. Looking at his records, he has been hypotensive in Dr. Clark's office as well t he day before and there he had a white count of 30,000 and a platelet count of 1,000,000 and white co unt of 9. With regard to the blood in his stools, he has had no melena. He denies any associated cr amping or pain. He denies any nausea. He is actually eating pretty well and wants to eat now. Previous GI workup including EGD on 10/04/2017. He also had endoscopies in 2017, EGD and colonoscopy . At that time, he had polyps removed and there is some post-polypectomy bleeding. PAST MEDICAL HISTORY: 1. 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 2. Hypertension. 3. Macular degeneration. 4. Sensorineural hearing loss. 5. Mild dementia. 6. Peripheral vascular disease. 7. Previous iliac aneurysm repair. 8. Previous colonoscopy with polypectomy year ago. 9. Diverticulosis. 10. Benign prostatic hyperplasia. PAST SURGICAL HISTORY: Abdominal aortic aneurysm repair, iliac artery repair, bilateral cataract walter nasim, cholecystectomy, multiple colonoscopies with previous polypectomies and complicated by gastroin testinal bleeding. ALLERGIES: No known drug allergies. HOME MEDICATIONS: Hydroxyurea 1000 mg daily, amlodipine, aspirin, Prevacid, Zoloft, and terazosin. SOCIAL HISTORY: No alcohol, drugs, or tobacco. His is here at the bedside. FAMILY HISTORY: Notable for mother of [place]. Sisters of cancer, stomach, lung and throat. REVIEW OF SYSTEMS: Negative for dysphagia or odynophagia. Negative for chest pain or shortness of b reath. Negative for cough. Negative for palpitations. Positive for weakness, positive for fatigue. Positive for a little bit drop in blood pressure when standing. PHYSICAL EXAMINATION: VITAL SIGNS: Blood pressure 129/78, pulse 97, respirations 20, temperature 98.5, O2 98%. GENERAL: The patient is well-nourished, well-developed, resting. LUNGS: Clear. HEART: Regular rate and rhythm without clicks or murmurs. ABDOMEN: Soft and nontender. There is no rebound or guarding. EXTREMITIES: No clubbing, cyanosis, or edema. RECTAL: Reveals brown stool, which is actually formed. GENITOURINARY: He has a large prostate. PRESENT MEDICATIONS HERE IN THE HOSPITAL: Tylenol, Dulcolax, Pepcid, Hydrea 5 mg b.i.d., Zofran p.r. n., Protonix 40 mg p.o. b.i.d., sertraline, normal saline heplock. LABORATORY DATA: White count 28831, hemoglobin 9.8, platelet count 480, 81% segs, 5% lymphs, 3% mono cytes, 5% basophils. Sodium 135, BUN and creatinine are 40 and 1.71, glucose 91, AST and ALT are 12 and 7, albumin is 3.5. Previous stool, last admission, stool negative for Entamoeba histolytica. ASSESSMENT: 1. The patient was admitted with the hypotension and prerenal azotemia. He states he is not having diarrhea anymore. His is adamant about this, but when you ask him, he is having about 4-6 bowel movements a day. They say these are formed; however, there is some mucus and blood. He has associa joe cramps. His hemoglobin is stable. He is apparently eating and drinking well, not having nausea, vomiting last admission, but he does appear to be prerenal. 2. With regard to mucus and blood in the stool on my rectal exam today, the stool is formed and ther e is no mucus or blood. His abdomen is nontender. He does have a very large spleen. 3. Massive splenomegaly. This may be backing some bowel function. It is unclear. 4. Polycythemia vera. I suspect this is contributing to his fatigue and general malaise. He had a platelet count of over a million two days ago in Dr. Clark's office. It is hard to believe that i t is normal now. Ask for a peripheral smear review with the pathologist. RECOMMENDATIONS: 1. From a GI standpoint, we would put him on some IV fluids and hydrate him. 2. I would get a cortisol level screen for adrenal insufficiency. 3. I think it will be reasonable to recheck stool for infection and leukocytes. If the patient show s signs of overt bleeding, we can consider endoscopy or with recurrent diarrhea, we can consider endo scopy, but with his recent colonoscopy last year, I think unless there is something certain we are go ing after, then I would not repeat that exam right now. We will continue to follow along with you.
[2017-10-25] MEDS: Famotidine 20 MG TAB PO SCH (08:34)
[2017-10-25] MEDS: Hydroxyurea 500 MG CAP PO SCH ×2 (08:39→21:18)
--- NOTE | 2017-10-25 09:09 | PDOC.PN ---
- Subjective Encounter Start Date: 10/25/17 Encounter Start Time: 09:08 Subjective: no dizziness, etc - Objective Resuscitation Status: Resuscitation Status FULL:Full Resuscitation MAR Reviewed: Yes Vital Signs & Weight: Vital Signs (12 hours) Temp Pulse Resp BP Pulse Ox 10/25/17 04:00 98.3 F 75 20 154/84 H 95 Weight Admit Weight 135 lb 8 oz Weight 132 lb 11.2 oz I&O: 10/24/17 10/25/17 10/26/17 06:59 06:59 06:59 Intake Total 250 Output Total 600 Balance -350 Result Diagrams: 10/25/17 05:30 10/24/17 09:19 Phys Exam - Physical Examination Neck: no JVD Respiratory: clear to auscultation bilateral Cardiovascular: RRR, no significant murmur Gastrointestinal: soft, non-tender, positive bowel sounds Musculoskeletal: no edema Dx/Plan (1) CKD (chronic kidney disease) stage 3, GFR 30-59 ml/min Code(s): N18.3 - CHRONIC KIDNEY DISEASE, STAGE 3 (MODERATE) Status: Chronic (2) Hypertension Code(s): I10 - ESSENTIAL (PRIMARY) HYPERTENSION Status: Chronic Qualifiers: Hypertension type: essential hypertension Qualified Code(s): I10 - Essential (primary) hypertension (3) Leucocytosis Code(s): D72.829 - ELEVATED WHITE BLOOD CELL COUNT, UNSPECIFIED Status: Chronic Comment: due to polycythemia vera (4) Polycythemia vera Code(s): D45 - POLYCYTHEMIA VERA Status: Chronic (5) Anemia Code(s): D64.9 - ANEMIA, UNSPECIFIED Status: Acute Qualifiers: Anemia type: unspecified type Qualified Code(s): D64.9 - Anemia, unspecified - Plan stable, cont hydroyurea. -: monitor cbc, bmp -: cortisol level * .
[2017-10-25 10:15] LABS: Anion Gap 11 mmol/L (10-20); BUN (Urea Nitrogen) 36 mg/dL (8.4-25.7); Calc. Creatinine Clearance 33 mL/min (70-130); Calcium 8.4 mg/dL (7.8-10.44); Carbon Dioxide 24 mmol/L (23-31); Chloride 106 mmol/L (98-107); Estimated GFR-MDRD 41; Glucose 80 mg/dL (83-110); Magnesium 2.2 mg/dL (1.6-2.6); Phosphorus 4.6 mg/dL (2.3-4.7); Potassium 4.8 mmol/L (3.5-5.1); Sodium 136 mmol/L (136-145)
--- NOTE | 2017-10-25 14:30 | PRG ---
DATE OF SERVICE: 10/25/2017. SUBJECTIVE: Patient was seen and examined at bedside and overnight events noted. Patient denies any shortness of breath or chest pain or palpitation. No history of nausea or vomiting or diarrhea or fever or chills or cramps. OBJECTIVE: GENERAL: This is a well-built male, in no apparent distress. VITAL SIGNS: Temperature 98.5, pulse 77, respiratory rate 18, and blood pressure 160/80. HEENT: Atraumatic, normocephalic, oral mucosa is moist. NECK: Supple. CARDIOVASCULAR: S1, S2 heard, rate and rhythm regular. RESPIRATORY: Clear to auscultation. GASTROINTESTINAL: Abdomen is soft. MUSCULOSKELETAL: No tenderness, no edema. DERMATOLOGIC: No skin rash. NEUROLOGIC: Alert and awake and oriented X3, No focal neurologic deficits. Moving all the extremitie s. PSYCHIATRIC: Mood and affect normal LABORATORY DATA: Potassium is 4.8, BUN is 36, and creatinine is 1.6. ASSESSMENT AND PLAN: 1. Acute kidney injury on chronic kidney stage 3, with good improvement. Okay to stop IV fluids and continue hydration, avoid nephrotoxins. 2. Anemia. 3. Leukocytosis. 4. History of polycythemia vera. 5. Edema, controlled. 6. Hypertension. 7. Renal function is better. Okay to stop IV fluids. Follow up with [facility].
[2017-10-25] MEDS ORDERED: Cosyntropin 250 MCG VIAL SLOW IVP SCH ×2 (15:00→15:15)
[2017-10-25] MEDS: Terazosin HCl 5 MG CAP PO SCH (21:17)
[2017-10-26] MEDS: Famotidine 20 MG TAB PO SCH (08:27)
[2017-10-26] MEDS: Hydroxyurea 500 MG CAP PO SCH (08:27)
--- NOTE | 2017-10-26 10:11 | PDOC.PN ---
- Subjective Encounter Start Date: 10/26/17 Encounter Start Time: 10:09 Subjective: no complaints at all - Objective Resuscitation Status: Resuscitation Status FULL:Full Resuscitation MAR Reviewed: Yes Vital Signs & Weight: Vital Signs (12 hours) Temp Pulse Resp BP Pulse Ox 10/26/17 08:00 97.8 F 73 18 121/78 97 10/26/17 03:59 97.8 F 78 16 114/73 Weight Admit Weight 135 lb 8 oz Weight 132 lb 11.2 oz I&O: 10/25/17 10/26/17 10/27/17 06:59 06:59 06:59 Intake Total 460 Balance 460 Result Diagrams: 10/25/17 05:30 10/25/17 05:22 Phys Exam - Physical Examination Neck: no JVD Respiratory: clear to auscultation bilateral Cardiovascular: RRR, no significant murmur Gastrointestinal: soft, non-tender, positive bowel sounds Musculoskeletal: no edema Dx/Plan (1) CKD (chronic kidney disease) stage 3, GFR 30-59 ml/min Code(s): N18.3 - CHRONIC KIDNEY DISEASE, STAGE 3 (MODERATE) Status: Chronic (2) Hypertension Code(s): I10 - ESSENTIAL (PRIMARY) HYPERTENSION Status: Chronic Qualifiers: Hypertension type: essential hypertension Qualified Code(s): I10 - Essential (primary) hypertension (3) Leucocytosis Code(s): D72.829 - ELEVATED WHITE BLOOD CELL COUNT, UNSPECIFIED Status: Chronic Comment: due to polycythemia vera (4) Polycythemia vera Code(s): D45 - POLYCYTHEMIA VERA Status: Chronic (5) Anemia Code(s): D64.9 - ANEMIA, UNSPECIFIED Status: Acute Qualifiers: Anemia type: unspecified type Qualified Code(s): D64.9 - Anemia, unspecified - Plan doing well, baseline cortisol Nl. stimulation series in progress * .
--- NOTE | 2017-10-26 11:06 | PRG ---
DATE OF SERVICE: 10/25/2017 SUBJECTIVE: Mr. Crews is feeling better. He is having no diarrhea. He is having no bleeding. He is tolerating diet. He wonders why he cannot have milk. OBJECTIVE: VITAL SIGNS: Temperature 97, pulse 67, blood pressure 163/94. GENERAL: He is resting comfortably in bed, in no distress. LABORATORY STUDIES: White count 12.2, hemoglobin 9.6, platelet count 412. BUN and creatinine are 36 and 1.66. Cortisol 12.8. ASSESSMENT: 1. Frequent stools with bleeding, resolved. It appears that hemoglobin has been stable. This proba jesus is rectal outlet. He had a colonoscopy, actually couple last year with polypectomy and post-poly pectomy bleeding. At this time, there are no signs of bleeding. 2. Loose stools. Clostridium difficile was checked, which could not be run as it was a formed stool . On rectal last night, he had formed stool in the rectal vault and fecal leukocytes was negative. 3. Recurrent dehydration, possibly this is related to his polycythemia. He has no significant diarr hea or nausea or vomiting to make him dehydrated. I do not see that he is on any diuretics that shou ld contribute to this. Hydroxyurea has some effect along those lines. 4. Orthostatic hypotension on admission. Again, this may be related to his underlying polycythemia, poor intake and oral medications and this seems to have been improved. He is tolerating diet withou t difficulty. RECOMMENDATIONS: 1. I think he can go home tomorrow if he continues to do well. I have ordered a colchicine stimulat ion test in the morning just to check that, otherwise cortisol was 12, it maybe a little bit low for this amount of stress his body was under when he came in. 2. 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 At this time, we will follow from a distance. I agree if he is doing well tomorrow, I t hink he will go home.
[2017-10-26 11:42] LABS: ANA Symphony (Qualitative) Negative (Negative); dsDNA IgG Antibody Less than 0.5 IU/mL (<10 Negative)
[2017-10-26 11:53] VITALS: BP 150/76; TEMP 98
--- NOTE | 2017-10-26 12:26 | DIS ---
DATE OF ADMISSION: 10/23/2017 DATE OF DISCHARGE: 10/26/2017 PRIMARY CARE PROVIDER: Trent Guardado M.D. ONCOLOGIST: Dayanara Clark M.D. DISCHARGE DISPOSITION: Discharged home. FINAL DIAGNOSES: Hypotension, resolved, polycythemia vera, chronic kidney disease stage 3, hypertens ion, anemia. DISCHARGE MEDICATIONS: Zoloft 50 mg a day, Prevacid 30 mg twice a day, aspirin 81 mg a day, Hytrin 1 0 mg a day at bedtime, hydroxyurea 500 mg p.o. b.i.d. ALLERGIES: None. PENDING AT TIME OF DISCHARGE: Nothing. CODE STATUS: FULL. HOSPITAL COURSE: Patient is a direct admit from Gastroenterology office to [facility]. The patient was noted to have a low blood pressure in the office, he was noted to hav e a drop in his hemoglobin. It is pertinent that he has a recent diagnosis of polycythemia vera. He is on hydroxyurea recently, had his dose increased. In his initial laboratory, hemoglobin 9.4, foll owup 9.8, followup 9.6, white count 17.3, followup 15.4, followup 12.2, platelet count 562,000, follo wup 480,000, followup 412,000. His initial sodium was 134, followup 136, creatinine 1.84, followup 1 .66. Ferritin level was 11.25. Cortisol was 12.8 random. A cortisol stimulation test was done, [facility] demonstrated baseline of 12.4 and 60 minutes 23.5 and 90 minutes 25.5. Stool for occult blood was negative. C. difficile toxin. He has only formed stool. He was seen in consultation by Dr. Gregg Alberts, Dr. Yobani Del Angel, Ankita Amado for Dayanara Clark. The patient has done well during his hospital stay. The decision made that his drop in hemoglobin was probably secondary to treatmen t for his polycythemia vera. No procedures were done. He is being discharged. Follow up with Dr. Rick moore in 1 week, Dr. Clark in 1 week. He is being discharged without his usual amlodipine. His bl ood pressures are currently ranging from 160/88-114/73-121/78. Dr. Guardado will decide at followup whe ther he needs to reinstitute the amlodipine. His CBC will be followed by Dr. Clark in his clinic.
--- NOTE | 2017-10-26 13:10 | PRG ---
DATE OF SERVICE: 10/26/2017 SUBJECTIVE: Patient was seen and examined at bedside and overnight events noted. Patient denies any shortness of breath or chest pain or palpitation. No history of nausea or vomiting or diarrhea or f ever or chills or cramps. OBJECTIVE: GENERAL: This is a well-built male in no apparent distress. VITAL SIGNS: Temperature 97.8, pulse 73, respiratory rate 18, and blood pressure 121/78. HEENT: Atraumatic, normocephalic, Oral mucosa is moist. Neck: Supple. Cardiovascular: S1 and S2 heard. Rate and rhythm regular. Respiratory: Clear to auscultation. Gastrointestinal: Abdomen is soft. Musculoskeletal: No tenderness, No edema. Dermatologic: No skin rash. Neurologic: Alert and awake and oriented x3. No focal neurologic deficits. Moving all the extremit ies. Psychiatric: Mood and affect normal. LABORATORY DATA: Potassium is 4.8, BUN is 36, creatinine is 1.6. ASSESSMENT AND PLAN: 1. Acute kidney injury on chronic kidney disease. Renal function has stable creatinine. 2. Anemia. 3. Polycythemia vera. 4. Edema. 5. Hypertension, stable. I will sign off. Follow up with the clinic in 1-2 weeks.
== END 2017-10-26 12:17 | disposition home or self-care (01) | DRG 683 ==
LOC: 2NO 17:16 → 3SE 10-25 14:11
PROVIDERS: ADMIT Internal Medicine; ATTEND Internal Medicine
DX: N17.9 Acute kidney failure, unspecified (principal); E87.1 Hypo-osmolality and hyponatremia; C94.6 Myelodysplastic disease, not elsewhere classified; N18.3 Chronic kidney disease, stage 3 (moderate); I95.9 Hypotension, unspecified; E86.0 Dehydration; D45 Polycythemia vera; H35.30 Unspecified macular degeneration; H90.5 Unspecified sensorineural hearing loss; F03.90 Unspecified dementia, unspecified severity, without behavioral disturbance, psychotic disturbance, mood disturbance, and anxiety; I73.9 Peripheral vascular disease, unspecified; Z86.010 Personal history of colon polyps; K57.90 Diverticulosis of intestine, part unspecified, without perforation or abscess without bleeding; N40.0 Benign prostatic hyperplasia without lower urinary tract symptoms; Z88.8 Allergy status to other drugs, medicaments and biological substances; Z79.899 Other long term (current) drug therapy; Z79.82 Long term (current) use of aspirin; Z87.891 Personal history of nicotine dependence; D64.9 Anemia, unspecified; R60.9 Edema, unspecified; I12.9 Hypertensive chronic kidney disease with stage 1 through stage 4 chronic kidney disease, or unspecified chronic kidney disease; R16.1 Splenomegaly, not elsewhere classified; K22.70 Barrett's esophagus without dysplasia
CPT/HCPCS: 36415; 74018; 80048; 80400; 82274; 82533; 82570; 82728; 83630; 83735; 84100; 84156; 85007; 85025; 85027; 85060; 86038; 86225; 93005; 93010; A4216; G8978-GP-CK; G8979-GP-CJ; G8987-GO-CI; G8988-GO-CI; G8989-GO-CI; J0834

== ENCOUNTER 2017-11-18 22:11 | Emergency (ER) | payer MEDICARE, BC ==
[2017-11-18 23:24] LABS: ALT (SGPT) 7 U/L (8-55); AST (SGOT) 19 U/L (5-34); Albumin 3.6 g/dL (3.4-4.8); Alkaline Phosphatase 74 U/L (40-150); Anion Gap 14 mmol/L (10-20); BUN (Urea Nitrogen) 29 mg/dL (8.4-25.7); Bilirubin, Total 0.2 mg/dL (0.2-1.2); CK (CPK) 33 U/L (30-200); Calc. Creatinine Clearance 0 mL/min (70-130); Calcium 8.2 mg/dL (7.8-10.44); Carbon Dioxide 24 mmol/L (23-31); Chloride 106 mmol/L (98-107); Estimated GFR-MDRD 27; Globulin 2.9 g/dL (2.4-3.5); Glucose 90 mg/dL (83-110); Potassium 4.7 mmol/L (3.5-5.1); Protein, Total 6.5 g/dL (5.8-8.1); Sodium 139 mmol/L (136-145)
[2017-11-18 23:41] LABS: Platelet Count 1262 thou/uL (130-400)
[2017-11-18 23:43] LABS: Anisocytosis SLIGHT = 6-15 cells (100X) (0-5/hpf); Band 9 % (5-11); Elliptocytes SLIGHT = 2-5 cells (100X) (0-1/hpf); Eosinophils 2 % (0-10); Hemoglobin 8.2 g/dL (14.0-18.0); Lymphocytes 6 % (21-51); MDiff Complete? YES; Mean Corpuscular HGB CONC 30.5 g/dL (32.0-36.0); Mean Corpuscular Hemoglobin 27.8 pg (27.0-31.0); Mean Platelet Volume 7.6 fL (7.4-10.4); Monocytes 3 % (0-10); Neutrophil 80 % (42-75); PLT Morphology Comment Appears Increased; RBC Distribution Width 24.8 % (11.5-14.5); Red Blood Cell (RBC) Count 2.96 mill/uL (4.70-6.10); White Blood Cell (WBC) Count 37.7 thou/uL (4.8-10.8)
== END 2017-11-19 01:45 | disposition home or self-care (01) ==
LOC: ERS 22:11
DX: M79.89 Other specified soft tissue disorders (principal); I10 Essential (primary) hypertension; Z87.891 Personal history of nicotine dependence; Z79.82 Long term (current) use of aspirin; Z79.899 Other long term (current) drug therapy
CPT/HCPCS: 36415; 80053; 82550; 83880; 85025

== ENCOUNTER 2017-11-19 05:28 | Inpatient (IN) | payer MEDICARE, BC ==
[2017-11-19] MEDS ORDERED: Ondansetron ODT 4 MG TAB ONE (05:57)
[2017-11-19 06:00] LABS: Platelet Count 1191 thou/uL (130-400)
[2017-11-19 06:12] LABS: ALT (SGPT) 8 U/L (8-55); AST (SGOT) 28 U/L (5-34); Albumin 3.4 g/dL (3.4-4.8); Alkaline Phosphatase 68 U/L (40-150); Anion Gap 16 mmol/L (10-20); BUN (Urea Nitrogen) 27 mg/dL (8.4-25.7); Bilirubin, Total 0.3 mg/dL (0.2-1.2); Calc. Creatinine Clearance 0 mL/min (70-130); Calcium 8.2 mg/dL (7.8-10.44); Carbon Dioxide 21 mmol/L (23-31); Chloride 107 mmol/L (98-107); Estimated GFR-MDRD 29; Globulin 3.1 g/dL (2.4-3.5); Glucose 108 mg/dL (83-110); Potassium 4.5 mmol/L (3.5-5.1); Protein, Total 6.5 g/dL (5.8-8.1); Sodium 139 mmol/L (136-145)
[2017-11-19 06:15] LABS: CKMB 1.6 ng/mL (0-6.6); Troponin I Less than 0.010 ng/mL (< 0.028)
[2017-11-19 06:20] LABS: Bilirubin Negative (Negative); Blood, Urine Negative (Negative); Clarity CLEAR (Clear); Glucose, Urine (Dipstick) Negative (Negative); Leukocyte Negative (Negative); Nitrite Negative (Negative); Protein, Urine (Dipstick) 30 mg/dL (Neg-Trace); Specific Gravity, Urine 1.009 (1.002-1.036); pH, Urine 7.5 (5.0-9.0)
[2017-11-19 06:23] LABS: Bacteria/HPF None Seen HPF (None Seen); Hyaline Casts/LPF 0-3 HYALINE CAST LPF (0-3 Hyaline); RBC/HPF 0-3 HPF (0-3); Squamous Epithelial 0-3 HPF (0-3); WBC/HPF 0-3 HPF (0-3)
[2017-11-19 06:26] LABS: Anisocytosis SLIGHT = 6-15 cells (100X) (0-5/hpf); Band 6 % (5-11); Elliptocytes SLIGHT = 2-5 cells (100X) (0-1/hpf); Eosinophils 2 % (0-10); Hemoglobin 8.5 g/dL (14.0-18.0); Lymphocytes 4 % (21-51); MDiff Complete? YES; Mean Corpuscular HGB CONC 30.4 g/dL (32.0-36.0); Mean Corpuscular Hemoglobin 28.5 pg (27.0-31.0); Mean Corpuscular Volume 93.7 fl (80.0-94.0); Mean Platelet Volume 7.8 fL (7.4-10.4); Monocytes 3 % (0-10); Neutrophil 85 % (42-75); PLT Morphology Comment Appears Increased; RBC Distribution Width 20.8 % (11.5-14.5); Red Blood Cell (RBC) Count 2.98 mill/uL (4.70-6.10); White Blood Cell (WBC) Count 33.7 thou/uL (4.8-10.8)
[2017-11-19 06:52] LABS: Hematocrit-ABG 29.7 % (42.0-52.0); Hemoglobin (Hb) 8.1 g/dL (14.0-18.0); O2 Tension (PaO2) 76.3 mmHg (> 70.0); pH, Arterial 7.39 (7.35-7.45)
[2017-11-19 06:53] LABS: Analyzer IN Cardio ER; Calcium, Ionized 1.2 mmol/L (1.12-1.30); Puncture Site RRA
[2017-11-19] MEDS ORDERED: Cefepime 2 GM VIAL ONE (07:23)
[2017-11-19] MEDS ORDERED: Acetaminophen 500 MG TAB ONE (07:23)
--- NOTE | 2017-11-19 08:08 | RAD ---
FRONTAL RADIOGRAPH CHEST: Date: 11/19/17 COMPARISON: 12/13/15. HISTORY: Shortness of breath. FINDINGS: No pneumothorax or pleural fluid. No lobar consolidation. There is new pulmonary vascular congestion. There is new asymmetric, nonspecific increased density in the right lung base, which is primarily increased linear interstitial density with possible mild air space disease. There is probable mild interstitial prominence in the left base as well. IMPRESSION: New opacity in the lung bases, right greater than left. Pulmonary edema is favored. Infectious pneumo nitis is a possibility. Follow-up imaging following treatment to document resolution is advised. POS: VARUN
[2017-11-19] MEDS ORDERED: Chloraseptic Spray 180 ml Bottle PO PRN (09:56)
[2017-11-19] MEDS ORDERED: Ondansetron HCl/PF 4 MG/2 ML Vial IVP PRN (09:56)
[2017-11-19] MEDS ORDERED: Loratadine 10 MG TAB PO PRN (09:56)
[2017-11-19] MEDS ORDERED: Heparin 5,000 UNITS/ML VIAL SC SCH ×2 (09:56→11:00)
[2017-11-19] MEDS ORDERED: Sodium Chloride 0.65% Nasal 44 ML BOT EA NARE PRN (09:56)
[2017-11-19] MEDS ORDERED: Senokot 8.6 MG TAB PO PRN (09:56)
[2017-11-19] MEDS ORDERED: Mag-Al 1200 mg/1200 mg/30 ML UDCUP PO PRN (09:56)
[2017-11-19] MEDS ORDERED: hydrALAZINE 20 MG/ML VIAL SLOW IVP PRN (09:56)
[2017-11-19] MEDS ORDERED: Eucerin (Mineral Oil/Petrolatum,White) 30 gm Jar TOP PRN (09:56)
[2017-11-19] MEDS ORDERED: Artificial Tears 18 DROP/0.9 ML EA EYE PRN (09:56)
[2017-11-19] MEDS ORDERED: Milk Of Magnesia 30 ML UDCUP PO PRN (09:56)
[2017-11-19] MEDS ORDERED: Diabetic Tussin 200 MG/10 ML UDCUP PO PRN (09:56)
[2017-11-19] MEDS ORDERED: Ondansetron ODT 4 MG TAB PO PRN (09:56)
[2017-11-19] MEDS ORDERED: Loperamide HCl 2 MG CAP PO PRN (09:56)
--- NOTE | 2017-11-19 10:08 | HP ---
PRIMARY CARE PHYSICIAN: Dr. Trent Guardado CHIEF COMPLAINT: Sepsis with acute organ dysfunction, acute hypoxic respiratory failure and pneumonia. HISTORY OF PRESENT ILLNESS: A 77-year-old male who was brought to emergency room last night around 10:00 p.m. with a complaint of bilateral feet swelling. Family member and patient noticed swelling the day before yesterday. The patient did not have any initial shortness of breath, cough, fever. During that emergency room visit, the patient had routine blood test done and subsequently he was discharged from the emergency room. When he went to home the patient was experiencing difficulty breathing. He was not able to lie down flat. He was having cough and he started having chills and that is why the patient was brought to the emergency room last night again through the paramedics and this time, the patient was having temperature 101. He was hypoxic, tachypneic and tachycardic. He required BiPAP in the Emergency Room. The patient is hard of hearing. He is not able to provide a good history, but family member provided most of the history in the emergency room. He did not have any sick exposure. He did not have any recent upper respiratory infection. He denies any chest pain, palpitations, syncope. When paramedics assessed him at fire station he was hypertensive and oxygen level was around 90%. He was given be CPAP and DuoNeb therapy by paramedics and he had improvement and his blood pressure also improved. The patient does not have any history of heart failure, but he has history of polycythemia vera and he is following with Dr. 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 He also has kidney failure and he is following with Dr. Freeman. Today in the emergency room, his WBC count was elevated. His creatinine was also elevated from his baseline. In the emergency room, he was given cefepime, Zofran and subsequently he was admitted to [facility]. REVIEW OF SYSTEMS: The following complete review of systems was negative, unless otherwise mentioned in the HPI or below: Constitutional: Weight loss or gain, ability to conduct usual activities. Skin: Rash, itching. Eyes: Double vision, pain. ENT/Mouth: Nose bleeding, neck stiffness, pain, tenderness. Cardiovascular: Palpitations, dyspnea on exertion, orthopnea. Respiratory: Shortness of breath, wheezing, cough, hemoptysis, fever or night sweats. Gastrointestinal: Poor appetite, abdominal pain, heartburn, nausea, vomiting, constipation, or diarrhea. Genitourinary: Urgency, frequency, dysuria, nocturia. Musculoskeletal: Pain, swelling. Neurologic/Psychiatric: Anxiety, depression. Allergy/Immunologic: Skin rash, bleeding tendency. Please see my HPI for pertinent positive and negative. All other review of systems reviewed and negative except that mentioned in the HPI. ALLERGIES: CIPROFLOXACIN, LEVOFLOXACIN. CURRENT HOME MEDICATIONS: Lansoprazole 30 mg daily., terazosin 10 mg daily, aspirin 81 mg p.o. daily, ICAPs 2 tablets daily, Hydroxyurea 500 mg daily, vitamin D3 1000 unit p.o. daily, Centrum Silver 1 tablet p.o. daily, probiotic 1 capsule daily. PAST MEDICAL HISTORY: Diverticulosis, history of colon polyp, required polypectomy, history of post-polypectomy bleeding. History of diverticulitis, abdominal aortic aneurysm with repair, iliac artery aneurysm with repair, hypertension, basal cell carcinoma, polycythemia vera, chronic splenomegaly, macular degeneration, sensorineural deafness, hypertension, gastroesophageal reflux disease, gastritis and esophagitis. PAST SURGICAL HISTORY: Abdominal hernia repair with mesh, bilateral cataract surgery, left iliac artery aneurysm repair, abdominal aortic aneurysm repair, L4 -L5 lumbar laminectomy, colonoscopy and subsequent repeat colonoscopy for post- polypectomy bleeding, cholecystectomy. PAST PSYCHIATRIC HISTORY: Reviewed and negative. SOCIAL HISTORY: Patient is a former smoker. He quit smoking few years ago. He denies any alcohol or other illicit drug abuse. FAMILY HISTORY: The patient is the only sibling left. Both parents in their 70s. Father from natural causes. Mother had massive heart attack. He had 3 sisters, 1 sister from stomach cancer. Another sister from lung cancer and another sister from throat cancer. Brother from massive heart attack. EMERGENCY ROOM COURSE: Patient is given cefepime and Zofran. PHYSICAL EXAMINATION: VITAL SIGNS: On arrival, blood pressure 141/91, pulse 101, temperature 101.2, saturation 90, 100% on BiPAP, respiratory rate 32, weight 64.8 kilograms. GENERAL: The patient is currently on BiPAP, mild respiratory distress. HEENT: Head is normocephalic, atraumatic. Eyes; pupils round, reactive to light. Extraocular muscle intact. ENT: Dry mucous membranes, no oral lesion, no pharyngeal erythema, no exudate. NECK: Supple, no JVD, no thyromegaly, no carotid bruit. LUNGS: Bibasilar rales noted, more on the right side. A few end expiratory wheezing heard. CARDIAC: S1, S2 regular. Systolic murmur present parasternally. No gallop, no rub. ABDOMEN: Soft, bowel sounds present, nontender, nondistended. Spleen is palpable. No peritoneal sign, no guarding, no rigidity, no rebound. BACK: Unremarkable, no CVA tenderness. EXTREMITIES: Upper extremity passive movement of all joints are normal. Lower extremity bilateral pedal edema noted. Good distal pulsation. SKIN: No skin rash. HEMATOLOGICAL: No lymphadenopathy. PSYCHIATRIC: Normal affect. SIGNIFICANT LABORATORY DATA: EKG showing right bundle branch block pattern, right axis deviation. Chest x-ray bibasilar infiltration. The patient does have pulmonary vascular congestion. SIGNIFICANT LABORATORY: CBC: WBC 33.7, hemoglobin 8.5, platelet 1191 with bandemia. ABG: PH 7.39, CO2 41.0, O2 76.3, bicarbonate 24.0. BMP: Sodium 139 , potassium 4.65, chloride 107, carbon dioxide 21, BUN 27, creatinine 2.23, glucose 108, calcium 8.2, lactic acid 1.0. LFTs: AST 28, ALT 8, alkaline phosphatase is 68, albumin 3.4, CK-MB 1.6, troponin I less than 0.010. BNP 356.8. Urinalysis normal. ASSESSMENT AND PLAN: 1. Sepsis with acute organ dysfunction. This patient has 101.2 temperature, leukocytosis, tachycardia, tachypnea, hypoxia and source of infection is pneumonia with bibasilar infiltration, more on the right side. He also has acute on chronic kidney failure. At this point, the patient does have evidence of sepsis with acute organ dysfunction with respiratory failure with acute on chronic kidney failure. The patient will be given appropriate renally adjusted antibiotic therapy with cefepime, vancomycin and azithromycin. Based on culture result, we will change antibiotic therapy accordingly. The patient also has underlying immuno compression from myeloproliferative disorder and that is why he will require broad spectrum antibiotic coverage. 2. Acute hypoxic respiratory failure, required BiPAP. We will try to wean off BiPAP in the IMCU and will monitor his oxygen saturation while in hospital. Most likely related with his bibasilar pneumonia. Underlying congestive heart failure may be contributing to his hypoxic respiratory failure. 3. Acute on chronic kidney failure, baseline chronic kidney disease stage 3. We will monitor renal function at this point, related with his underlying sepsis. We will avoid nephrotoxin agent. We will try to give medication as per renally adjusted dose and we will monitor renal function. 4. Myeloproliferative disorder with polycythemia vera and possible myelofibrosis. The patient is following with Dr. Clark on an outpatient basis. He has an upcoming appointment with him on Sunday. The patient is waiting for one type of a newer pill for polycythemia vera that may be available on Sunday. In that case, we will notify Dr. Clark on that day and he can have that chemotherapy here in the hospital before discharge if indicated. 5. Elevated BNP. We will obtain echocardiography to rule out any structural or functional problem. 6. Anemia of chronic disease. As mentioned above, the patient does have an underlying myeloproliferative disorder that is contributing to his chronic anemia. Similarly leukocytosis and thrombocytosis could be a part of myeloproliferative disorder. The patient will continue his Hydroxyurea 500 mg daily. 7. Gastroesophageal reflux disease. We will continue Protonix 40 mg p.o. daily. 8. Benign enlargement of prostate. We will continue Hytrin 10 mg p.o. at bedtime. 9. Anxiety and depression. We will continue patient's home medication while in hospital. 10. Deep venous thrombosis prophylaxis, heparin 5000 units subcu twice daily. 11. Gastrointestinal prophylaxis, Protonix 40 mg p.o. daily. CODE STATUS: The patient is FULL CODE. The patient's daughter is surrogate decision maker. Disposition plan based on clinical course. We are expecting patient's stay in hospital more than 2 midnights. Plan of care discussed with the patient in detail. Total time spent providing critical care to this patient in emergency room 35 minutes. MTDD
[2017-11-19 10:45] VITALS: BMI 19.8
--- NOTE | 2017-11-19 11:53 | CON ---
DATE OF CONSULTATION: 11/19/2017 CONSULTING PHYSICIAN: Dr. Moore REASON FOR CONSULTATION: Acute respiratory failure. Total time spent on encounter was 70 minutes. At that time, greater than 50% was spent with the alem ent and order on the patient's unit in the hospital. HISTORY OF PRESENT ILLNESS: Mr. Crews is a 77-year-old male who came to the emergency room about 10 o'clock last night with feet swelling. He was initially sent home. Upon arrival at home his breath ing became difficult. His drove him to the nearest fire station. He was subsequently transport ed to the hospital. At that time, he was noted to have a temperature of 101. He was tachypneic and also had hypoxemia. He was placed on BiPAP and has since improved to the point where he was able to come off the BiPAP. PAST MEDICAL HISTORY: 1. Gastroesophageal reflux. 2. Hypertension. 3. Prostatic hypertrophy. 4. Polycythemia vera. 5. Peripheral vascular disease. 6. Chronic obstructive pulmonary disease. 7. Recent diagnosis of myelofibrosis. 8. Chronic splenomegaly. 9. Chronic kidney disease. PAST SURGICAL HISTORY: 1. Abdominal hernia repair. 2. AAA repair. 3. Cholecystectomy. 4. Iliac aneurysm repair. 5. Bilateral lens implants in the eyes. PSYCHIATRIC HISTORY: Unremarkable. SOCIAL HISTORY: The patient smoked 1 to 1-1/2 packs per day, quit about 7 years ago. Does not drink alcohol, does not use illicit drugs. FAMILY MEDICAL HISTORY: Remarkable for coronary artery disease, COPD and cancer. MEDICATIONS: Prior to admission; terazosin 10 mg nightly, Prevacid 30 mg b.i.d., hydroxyurea 500 mg b.i.d., aspirin 81 mg daily, Stiolto Respimat 2 puffs daily. CURRENT INPATIENT MEDICATIONS: Aspirin 81 mg daily, Zithromax 500 mg daily, cefepime 1 gram IV q.12 hours, Mucinex, vitamin D3, heparin, hydralazine, hydroxyurea, pantoprazole, terazosin. REVIEW OF SYSTEMS: Twelve point review of systems remarkable for the fever, general malaise, orthopn ea. Otherwise, 12-point review of systems negative. PHYSICAL EXAMINATION: VITAL SIGNS: Temperature 97.9, pulse 83, respirations 22, O2 sat 98% on 2 liters, blood pressure 111 /65. GENERAL: Mr. Machan is a 77-year-old male who appears his stated age who is sitting in the bed in n o distress, able to give history without limitation. HEENT: Pupils react. Sclerae icteric. Oropharynx clear. NECK: No adenopathy, no JVD, no bruits. LUNGS: He has inspiratory crackles in both bases without wheezing. CARDIAC: S1, S2 regular with 2/6 systolic murmur at the left sternal border radiating to the carotid s. ABDOMEN: Soft. His spleen tip is palpable on the left side. Liver is not palpable. EXTREMITIES: No clubbing, cyanosis, or edema. LABORATORY AND X-RAY FINDINGS: White blood cell count 33.7, hematocrit 28.0, platelet count 1191. A BG; pH 7.39, pCO2 41, pO2 of 76 that was on BiPAP. Sodium 139, potassium 4.5, chloride 107, CO2 21, BUN 27, creatinine 2.2, glucose 108. BNP level was 356. Urinalysis showed some proteinuria. His x-ray shows a prominent right lower lobe infiltrate. ASSESSMENT: 1. Acute hypoxic respiratory failure. The patient appears to have some component of pneumonia based on the x-ray and the fever at the time of admission. I suspect he probably has concurrent pulmonary edema also given the peripheral edema. This was probably made worse by the fever. 2. Systemic inflammatory response. 3. History of polycythemia vera. 4. History of myelofibrosis. PLAN: I have reviewed the orders, I agree with current treatment including nebulization treatment, o xygen and antibiotics. He may or may not need BiPAP. I agree with cardiac workup. I will be happy to follow the patient with you.
[2017-11-19] MEDS: Azithromycin 500 MG in Sodium Chloride 0.9% 250 ML 250 ML IVPB SCH (11:55)
[2017-11-19] MEDS: Cefepime 1 GM in Sodium Chloride 0.9% 100 ML IVPB SCH (20:20)
[2017-11-19] MEDS: guaiFENesin ER 600 MG TAB PO SCH (20:21)
[2017-11-19] MEDS: Terazosin HCl 5 MG CAP PO SCH (20:22)
[2017-11-19] MEDS: Heparin 5,000 UNITS/ML VIAL SC SCH (20:22)
[2017-11-19 20:47] LABS: Troponin I Less than 0.010 ng/mL (< 0.028)
[2017-11-20 06:17] LABS: ALT (SGPT) 8 U/L (8-55); AST (SGOT) 26 U/L (5-34); Albumin 3.3 g/dL (3.4-4.8); Alkaline Phosphatase 61 U/L (40-150); Anion Gap 14 mmol/L (10-20); BUN (Urea Nitrogen) 33 mg/dL (8.4-25.7); Bilirubin, Total 0.3 mg/dL (0.2-1.2); Calc. Creatinine Clearance 29 mL/min (70-130); Calcium 8.4 mg/dL (7.8-10.44); Carbon Dioxide 25 mmol/L (23-31); Chloride 106 mmol/L (98-107); Estimated GFR-MDRD 30; Globulin 2.5 g/dL (2.4-3.5); Glucose 80 mg/dL (83-110); Potassium 3.8 mmol/L (3.5-5.1); Protein, Total 5.8 g/dL (5.8-8.1); Sodium 141 mmol/L (136-145)
[2017-11-20 06:28] LABS: Hemoglobin 7.9 g/dL (14.0-18.0); Mean Corpuscular HGB CONC 29.4 g/dL (32.0-36.0); Mean Corpuscular Hemoglobin 27.4 pg (27.0-31.0); Mean Corpuscular Volume 93.4 fl (80.0-94.0); Mean Platelet Volume 7.7 fL (7.4-10.4); Platelet Count 1359 thou/uL (130-400); RBC Distribution Width 20.6 % (11.5-14.5); Red Blood Cell (RBC) Count 2.87 mill/uL (4.70-6.10); White Blood Cell (WBC) Count 39.2 thou/uL (4.8-10.8)
[2017-11-20 06:39] LABS: Band 2 % (5-11); Elliptocytes SLIGHT = 2-5 cells (100X) (0-1/hpf); Lymphocytes 4 % (21-51); MDiff Complete? YES; Monocytes 6 % (0-10); Neutrophil 86 % (42-75); PLT Morphology Comment Appears Increased; Tear Drops SLIGHT = 2-5 cells (100X) (0-1/hpf)
--- NOTE | 2017-11-20 08:05 | PRG ---
DATE OF SERVICE: 11/20/2017 SUBJECTIVE: He feels much better today. He slept well last night. He did not have any difficulty b reathing. Did not require use of BiPAP. PHYSICAL EXAMINATION: VITAL SIGNS: On exam, temperature is 97.8, pulse 93, respirations 14, O2 sat is 99% on room air, blo od pressure 121/74. HEENT: Unremarkable. NECK: No JVD. LUNGS: He has inspiratory crackles at both bases. CARDIAC: S1 and S2, regular, with 2/6 systolic murmur. ABDOMEN: Soft and nontender. EXTREMITIES: No clubbing, cyanosis, or edema. LABORATORY DATA: Sodium 141, potassium 3.8, chloride 106, CO2 of 25, BUN 33, creatinine 2.1, glucose 80. White blood cell count 39.2, hematocrit 26.8, platelet count of 1359. ASSESSMENT: 1. Diastolic cardiac dysfunction with failure at the time of admission. 2. Acute hypoxic respiratory failure. 3. Possible concurrent pneumonia. 4. Polycythemia vera. 5. Profound thrombocytosis. Family says he has a history of myelofibrosis. RECOMMENDATIONS: 1. I would recommend Hematology/Oncology input in regard to his thrombocytosis. Right now, he is on hydroxyurea. I do not know if anything else can be added to that. He is continuing antibiotic ther apy. 2. Continue anticoagulation with heparin for DVT prophylaxis. 3. Okay to transfer to the medical floor.
[2017-11-20] MEDS: Hydroxyurea 500 MG CAP PO SCH (08:43)
[2017-11-20] MEDS: Saccharomyces boulardii 250 MG CAP PO SCH (08:43)
[2017-11-20] MEDS: Cefepime 1 GM in Sodium Chloride 0.9% 100 ML IVPB SCH ×2 (08:43→20:23)
[2017-11-20] MEDS: Aspirin 81 mg Enteric Coated Tablet PO SCH (08:43)
[2017-11-20] MEDS: Heparin 5,000 UNITS/ML VIAL SC SCH ×2 (08:44→20:31)
[2017-11-20] MEDS: guaiFENesin ER 600 MG TAB PO SCH ×2 (08:44→20:30)
[2017-11-20] MEDS: Acetaminophen 325 MG TAB PO PRN (08:51)
--- NOTE | 2017-11-20 10:04 | PDOC.PN ---
- Subjective Encounter Start Date: 11/20/17 Encounter Start Time: 08:45 -: old records requested/rev Patient seen and examined for sepsis. No new complaints. No overnight events - Objective Resuscitation Status: Resuscitation Status FULL:Full Resuscitation MAR Reviewed: Yes Vital Signs & Weight: Vital Signs (12 hours) Temp Pulse Resp BP Pulse Ox 11/20/17 08:00 97.8 F 93 14 99 11/20/17 07:34 97.8 F 93 14 121/74 99 11/20/17 06:10 88 16 99 11/20/17 06:05 84 18 116/73 98 11/20/17 04:15 98.2 F 80 18 128/74 97 11/20/17 02:03 85 18 131/75 98 11/20/17 00:21 85 16 99 11/20/17 00:00 97.9 F 96 15 113/66 96 11/19/17 22:13 87 22 H 114/64 98 Weight Weight 149 lb 14.629 oz I&O: 11/19/17 11/20/17 11/21/17 06:59 06:59 06:59 Intake Total 980 Output Total 900 125 Balance 80 -125 Result Diagrams: 11/20/17 04:27 11/20/17 04:27 EKG Reviewed by me: Yes (nsr) Phys Exam - Physical Examination Constitutional: NAD HEENT: PERRLA, moist MMs, sclera anicteric Neck: no JVD, supple Respiratory: no wheezing, no rales, no rhonchi Cardiovascular: RRR, no significant murmur, no rub Gastrointestinal: soft, non-tender, no distention, positive bowel sounds Musculoskeletal: no edema, pulses present Neurological: non-focal, normal sensation, moves all 4 limbs Lymphatic: no nodes Psychiatric: normal affect, A&O x 3 Skin: no rash, normal turgor Dx/Plan (1) Acute worsening of stage 3 chronic kidney disease Code(s): N18.3 - CHRONIC KIDNEY DISEASE, STAGE 3 (MODERATE) Status: Acute (2) Acute respiratory failure with hypoxia Code(s): J96.01 - ACUTE RESPIRATORY FAILURE WITH HYPOXIA Status: Acute (3) Community acquired bacterial pneumonia Code(s): J15.9 - UNSPECIFIED BACTERIAL PNEUMONIA Status: Acute (4) Sepsis with acute organ dysfunction Code(s): A41.9 - SEPSIS, UNSPECIFIED ORGANISM; R65.20 - SEVERE SEPSIS WITHOUT SEPTIC SHOCK Status: Acute (5) Diverticulosis of colon Code(s): K57.30 - DVRTCLOS OF LG INT W/O PERFORATION OR ABSCESS W/O BLEEDING Status: Chronic (6) GERD (gastroesophageal reflux disease) Code(s): K21.9 - GASTRO-ESOPHAGEAL REFLUX DISEASE WITHOUT ESOPHAGITIS Status: Chronic (7) H/O abdominal aortic aneurysm repair Code(s): Z98.890 - OTHER SPECIFIED POSTPROCEDURAL STATES Status: Chronic (8) Hypertension Code(s): I10 - ESSENTIAL (PRIMARY) HYPERTENSION Status: Chronic Qualifiers: (9) Leucocytosis Code(s): D72.829 - ELEVATED WHITE BLOOD CELL COUNT, UNSPECIFIED Status: Chronic Comment: due to polycythemia vera (10) Polycythemia vera Code(s): D45 - POLYCYTHEMIA VERA Status: Chronic (11) Splenomegaly Code(s): R16.1 - SPLENOMEGALY, NOT ELSEWHERE CLASSIFIED Status: Chronic Comment: Secondary to polycythemia - Plan cont current plan of care, plan discussed w/ family, continue antibiotics, PT/OT , respiratory therapy * transfer to oncology * consul oncology * monitor labs * check uric acid and urine protein creatinine * medication reviewed as below * symptomatic treatment * discussed with family * follow culture * tomorrow will narrow down antibiotics * for now continue cefepime, azithromycin and vancomycin . Review of Systems - Review of Systems Constitutional: negative: fever, chills, sweats, weakness, malaise, other Eyes: negative: Pain, Vision Change, Conjunctivae Inflammation, Eyelid Inflammation, Redness, Other ENT: negative: Ear Pain, Ear Discharge, Nose Pain, Nose Discharge, Nose Congestion, Mouth Pain, Mouth Swelling, Throat Pain, Throat Swelling, Other Respiratory: negative: Cough, Dry, Shortness of Breath, Hemoptysis, SOB with Excertion, Pleuritic Pain, Sputum, Wheezing Cardiovascular: negative: chest pain, palpitations, orthopnea, paroxysmal nocturnal dyspnea, edema, light headedness, other Gastrointestinal: negative: Nausea, Vomiting, Abdominal Pain, Diarrhea, Constipation, Melena, Hematochezia, Other Genitourinary: negative: Dysuria, Frequency, Incontinence, Hematuria, Retention , Other Musculoskeletal: negative: Neck Pain, Shoulder Pain, Arm Pain, Back Pain, Hand Pain, Leg Pain, Foot Pain, Other Skin: negative: Rash, Lesions, Vasyl, Bruising, Other - Medications/Allergies Allergies/Adverse Reactions: Allergies Allergy/AdvReac Type Severity Reaction Status Date / Time ciprofloxacin [From Cipro] Allergy Verified 11/19/17 10:01 levofloxacin [From Levaquin] Allergy Verified 11/19/17 10:01 Medications: Current Medications Acetaminophen (Tylenol) 650 mg PO Q4H PRN PRN Reason: Headache/Fever or Pain Last Admin: 11/20/17 08:51 Dose: 650 mg Al Hydroxide/Mg Hydroxide (Maalox) 30 ml PO Q6H PRN PRN Reason: Heartburn or Indigestion Last Admin: 11/19/17 20:23 Dose: 30 ml Albuterol/Ipratropium (Duoneb) 3 ml NEB [id number] [facility] Last Admin: 11/20/17 06:10 Dose: 3 ml Artificial Tears (Tears Naturale) 0 drop EA EYE PRN PRN PRN Reason: Dry Eyes Aspirin (Ecotrin) 81 mg PO DAILY [facility] Last Admin: 11/20/17 08:43 Dose: 81 mg Cholecalciferol (Vitamin D3) 1,000 units PO DAILY [facility] Last Admin: 11/20/17 08:44 Dose: 1,000 units Guaifenesin (Robitussin Sf) 200 mg PO Q4H PRN PRN Reason: Cough Guaifenesin (Mucinex) 600 mg PO Q12HR [facility] Last Admin: 11/20/17 08:44 Dose: 600 mg Heparin Sodium (Porcine) (Heparin) 5,000 units SC BID [facility] Last Admin: 11/20/17 08:44 Dose: 5,000 units Hydralazine HCl (Apresoline) 10 mg SLOW IVP Q4H PRN PRN Reason: Systolic BP > 180 Hydroxyurea (Hydrea) 500 mg PO DAILY [facility] Last Admin: 11/20/17 08:43 Dose: 500 mg Cefepime HCl 1 gm/ Sodium (Chloride) 100 mls @ 200 mls/hr IVPB Q12HR [facility] Last Admin: 11/20/17 08:43 Dose: 100 mls Azithromycin 500 mg/ Sodium (Chloride) 250 mls @ 250 mls/hr IVPB 1100 [facility] Last Admin: 11/19/17 11:55 Dose: 250 mls Loperamide HCl (Imodium) 2 mg PO PRN PRN PRN Reason: Diarrhea/Loose Stools Loratadine (Claritin) 10 mg PO DAILYPRN PRN PRN Reason: Sinus Symptoms Magnesium Hydroxide (Milk Of Magnesium) 30 ml PO DAILYPRN PRN PRN Reason: Constipation Mineral Oil/White Petrolatum (Eucerin Cream) 0 gm TOP BIDPRN PRN PRN Reason: Dry Skin Miscellaneous Medication (Pharmacy To Dose) 0 each IVPB ASDIR PRN PRN Reason: Pharmacy to Dose ANTIBIOTICS Ondansetron HCl (Zofran Odt) 4 mg PO Q6H PRN PRN Reason: Nausea/Vomiting Ondansetron HCl (Zofran) 4 mg IVP Q6H PRN PRN Reason: Nausea/Vomiting Pantoprazole Sodium (Protonix) 40 mg PO DAILY [facility] Last Admin: 11/20/17 08:44 Dose: 40 mg Phenol (Chloraseptic [place] 180 Ml Bot) 0 ml PO PRN PRN PRN Reason: Sore Throat Saccharomyces Boulardii (Florastor) 250 mg PO DAILY [facility] Last Admin: 11/20/17 08:43 Dose: 250 mg Senna (Senokot) 2 tab PO HSPRN PRN PRN Reason: Constipation Sodium Chloride (Flush - Normal Saline) 10 ml IVF PRN PRN PRN Reason: Saline Flush Sodium Chloride ([place] Nasal [place] 0.65%) 0 ml EA NARE QIDPRN PRN PRN Reason: Nasal Congestion Terazosin HCl (Hytrin) 10 mg PO [facility] Last Admin: 11/19/17 20:22 Dose: 10 mg
[2017-11-20 10:46] LABS: Creatinine, Urine 43.27 mg/dL (63-166)
--- NOTE | 2017-11-20 10:51 | CON ---
DATE OF CONSULTATION: 11/20/2017 REASON FOR CONSULTATION: Myeloproliferative disorder. HISTORY: This patient is a 77-year-old male who in 2010 was diagnosed polycythemia vera. He was initially treated with phlebotomy. Subsequently, he developed a picture consistent more with myelofibrosis syndrome, proliferative syndrome with increase in white cell and platelet counts. He w as managed on hydroxyurea for the past several years. Lately it has been difficult to control his pl atelet with hydroxyurea as he develops severe thrombocytopenia and anemia on modest doses of hydroxyu isaiah and when hydroxyurea was discontinued or reduced in dose his platelet count goes over 1 million. Bone marrow recently showed 100% cellularity. There was increased reticulin fiber consistent with d iagnosis of myelofibrosis. However, no evidence of acute leukemia or obvious myelodysplastic syndrom e was noted. The patient is admitted with fever and shortness of breath and was found to have bibasi lar pulmonary infiltrate, raising the possibility of pneumonia and now congestive heart failure. PHYSICAL EXAMINATION: VITAL SIGNS: He is afebrile, blood pressure 121/74, temperature 98.3, respirations 14. LYMPHATICS: There is no peripheral lymphadenopathy. CHEST: Occasional rales at left base. HEART: Regular rhythm. ABDOMEN: Soft. There is fullness in the left upper quadrant of the abdomen suggestive of splenomega ly. LABS: CBC shows WBC 3900, hemoglobin 7.9, platelet 1.359 million. Differential shows 86% neutrophil s, no immature cells are reported. Chemistry profile is remarkable for creatinine of 2.14, BUN 33. Uric acid 11 and albumin 3.3. 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 His disease has been difficult to control with increasing plate let count and decreasing hemoglobin. For now, he will continue on hydroxyurea 500 mg a day. I might change him to Anagrelide and am also considering Jakafi. Thanks very much for allowing me to participate in his care.
[2017-11-20] MEDS: Azithromycin 500 MG in Sodium Chloride 0.9% 250 ML 250 ML IVPB SCH (11:28)
--- NOTE | 2017-11-20 16:59 | EKG ---
Test Reason : STAT Blood Pressure : / mmHG Vent. Rate : 092 BPM Atrial Rate : 092 BPM P-R Int : 140 ms QRS Dur : 122 ms QT Int : 366 ms P-R-T Axes : 068 -62 040 degrees QTc Int : 452 ms Normal sinus rhythm Right bundle branch block Left anterior fascicular block Bifascicular block Abnormal ECG When compared with ECG of 19-NOV-2017 05:34, (Unconfirmed) No significant change was found Confirmed by ANALI MELTON ([id number]) on 11/20/2017 4:59:34 PM Referred By: ELO Confirmed By:ANALI MELTON
[2017-11-20] MEDS: Terazosin HCl 5 MG CAP PO SCH (21:00)
[2017-11-21 01:57] LABS: ALT (SGPT) 8 U/L (8-55); AST (SGOT) 19 U/L (5-34); Albumin 3.5 g/dL (3.4-4.8); Alkaline Phosphatase 64 U/L (40-150); Anion Gap 15 mmol/L (10-20); BUN (Urea Nitrogen) 31 mg/dL (8.4-25.7); Bilirubin, Total 0.3 mg/dL (0.2-1.2); Calc. Creatinine Clearance 30 mL/min (70-130); Calcium 8.5 mg/dL (7.8-10.44); Carbon Dioxide 23 mmol/L (23-31); Chloride 107 mmol/L (98-107); Estimated GFR-MDRD 32; Globulin 2.8 g/dL (2.4-3.5); Glucose 94 mg/dL (83-110); Potassium 4.5 mmol/L (3.5-5.1); Protein, Total 6.3 g/dL (5.8-8.1); Sodium 140 mmol/L (136-145)
[2017-11-21 02:17] LABS: Anisocytosis SLIGHT = 6-15 cells (100X) (0-5/hpf); Band 3 % (5-11); Elliptocytes SLIGHT = 2-5 cells (100X) (0-1/hpf); Hemoglobin 8.2 g/dL (14.0-18.0); Lymphocytes 9 % (21-51); MDiff Complete? YES; Mean Corpuscular HGB CONC 30.1 g/dL (32.0-36.0); Mean Corpuscular Hemoglobin 27.3 pg (27.0-31.0); Mean Corpuscular Volume 90.6 fl (80.0-94.0); Mean Platelet Volume 7.1 fL (7.4-10.4); Monocytes 2 % (0-10); Neutrophil 84 % (42-75); PLT Morphology Comment Appears Increased; Platelet Count 1363 thou/uL (130-400); RBC Distribution Width 24.5 % (11.5-14.5); Red Blood Cell (RBC) Count 2.99 mill/uL (4.70-6.10); White Blood Cell (WBC) Count 27.3 thou/uL (4.8-10.8)
[2017-11-21] MEDS: Acetaminophen 325 MG TAB PO PRN ×3 (02:43→22:04)
[2017-11-21 03:05] LABS: CKMB 1.3 ng/mL (0-6.6); Troponin I Less than 0.010 ng/mL (< 0.028)
[2017-11-21] MEDS ORDERED: Lorazepam 2 MG/ML VIAL SLOW IVP PRN (03:20)
[2017-11-21 04:31] LABS: CKMB 0.9 ng/mL (0-6.6); Troponin I Less than 0.010 ng/mL (< 0.028)
--- NOTE | 2017-11-21 08:53 | RAD ---
CHEST ONE VIEW: History: Chest pain. Comparison: 11-19-17 FINDINGS: Abnormal increase in interstitial opacities throughout the lungs is similar. There is a developing al veolar opacity in the left lung base. No pneumothorax. No acute osseous abnormality. IMPRESSION: Concern for developing pneumonia in the left lower lobe superimposed on interstitial edema. POS: [facility]
[2017-11-21] MEDS: Saccharomyces boulardii 250 MG CAP PO SCH (09:13)
[2017-11-21] MEDS: guaiFENesin ER 600 MG TAB PO SCH ×2 (09:14→21:29)
[2017-11-21] MEDS: Hydroxyurea 500 MG CAP PO SCH (09:14)
[2017-11-21] MEDS: Aspirin 81 mg Enteric Coated Tablet PO SCH (09:14)
[2017-11-21] MEDS: Allopurinol 100 MG TAB PO SCH (09:14)
[2017-11-21] MEDS: Cefepime 1 GM in Sodium Chloride 0.9% 100 ML IVPB SCH ×2 (09:14→21:29)
[2017-11-21] MEDS: Heparin 5,000 UNITS/ML VIAL SC SCH ×2 (09:14→21:30)
[2017-11-21] MEDS: Furosemide 20 MG TAB PO SCH (09:15)
[2017-11-21] MEDS: Azithromycin 500 MG in Sodium Chloride 0.9% 250 ML 250 ML IVPB SCH (10:35)
--- NOTE | 2017-11-21 10:35 | PDOC.PN ---
- Subjective Encounter Start Date: 11/21/17 Encounter Start Time: 07:00 -: old records requested/rev last night code clarisse was called for chest pain, pt was confused, hallucinating , had fever, c/o dyspnea per family after sleep this morning pt is back to his normal - Objective Resuscitation Status: Resuscitation Status FULL:Full Resuscitation MAR Reviewed: Yes Vital Signs & Weight: Vital Signs (12 hours) Temp Pulse Pulse Resp Resp BP BP 11/21/17 07:45 98.4 F 91 20 112/75 11/21/17 03:42 99.2 F 103 H 18 116/66 11/21/17 02:40 100.5 F H 11/21/17 02:00 100.1 F H 112 H 22 H 11/21/17 01:05 112 H 20 166/89 H 11/21/17 00:45 99.0 F 112 H 28 H 166/89 H 11/21/17 00:07 12 11/20/17 23:56 98.6 F 98 16 165/88 H Pulse Ox Pulse Ox 11/21/17 07:45 93 L 11/21/17 03:42 95 11/21/17 02:40 11/21/17 02:00 93 L 11/21/17 01:05 94 L 11/21/17 00:45 92 L 11/21/17 00:07 11/20/17 23:56 92 L Weight Weight 149 lb 14.629 oz I&O: 11/20/17 11/21/17 11/22/17 06:59 06:59 06:59 Intake Total 980 2580 Output Total 900 2875 Balance 80 -295 Result Diagrams: 11/21/17 01:36 11/21/17 01:36 Radiology Reviewed by me: Yes (chest ray) Phys Exam - Physical Examination Constitutional: NAD HEENT: PERRLA, moist MMs, sclera anicteric Neck: no JVD, supple Respiratory: no wheezing, no rhonchi left base rales Cardiovascular: RRR, no significant murmur, no rub Gastrointestinal: soft, non-tender, no distention, positive bowel sounds Musculoskeletal: no edema, pulses present Neurological: non-focal, normal sensation, moves all 4 limbs Psychiatric: normal affect Skin: no rash, normal turgor Dx/Plan (1) Acute worsening of stage 3 chronic kidney disease Code(s): N18.3 - CHRONIC KIDNEY DISEASE, STAGE 3 (MODERATE) Status: Acute Comment: improving creatinine (2) Acute respiratory failure with hypoxia Code(s): J96.01 - ACUTE RESPIRATORY FAILURE WITH HYPOXIA Status: Resolved (3) Community acquired bacterial pneumonia Code(s): J15.9 - UNSPECIFIED BACTERIAL PNEUMONIA Status: Acute Comment: improving (4) Sepsis with acute organ dysfunction Code(s): A41.9 - SEPSIS, UNSPECIFIED ORGANISM; R65.20 - SEVERE SEPSIS WITHOUT SEPTIC SHOCK Status: Acute (5) Diverticulosis of colon Code(s): K57.30 - DVRTCLOS OF LG INT W/O PERFORATION OR ABSCESS W/O BLEEDING Status: Chronic (6) GERD (gastroesophageal reflux disease) Code(s): K21.9 - GASTRO-ESOPHAGEAL REFLUX DISEASE WITHOUT ESOPHAGITIS Status: Chronic (7) H/O abdominal aortic aneurysm repair Code(s): Z98.890 - OTHER SPECIFIED POSTPROCEDURAL STATES Status: Chronic (8) Hypertension Code(s): I10 - ESSENTIAL (PRIMARY) HYPERTENSION Status: Chronic Qualifiers: (9) Leucocytosis Code(s): D72.829 - ELEVATED WHITE BLOOD CELL COUNT, UNSPECIFIED Status: Chronic Comment: due to polycythemia vera (10) Polycythemia vera Code(s): D45 - POLYCYTHEMIA VERA Status: Chronic (11) Splenomegaly Code(s): R16.1 - SPLENOMEGALY, NOT ELSEWHERE CLASSIFIED Status: Chronic Comment: Secondary to polycythemia - Plan cont current plan of care, plan discussed w/ family, continue antibiotics, respiratory therapy * last night his chest pain is non cardiac, cardiac enzyme negative * continue cefepime, will change azithromycin orally * repeat labs tomorrow * lasix added today, will monitor volume status * repeat labs tomorrow * medication reviewed as below * symptomatic treatment * discussed with family. Review of Systems - Review of Systems Constitutional: fever, weakness. negative: chills, sweats, malaise, other Respiratory: Shortness of Breath. negative: Cough, Dry, Hemoptysis, SOB with Excertion, Pleuritic Pain, Sputum, Wheezing Cardiovascular: negative: chest pain, palpitations, orthopnea, paroxysmal nocturnal dyspnea, edema, light headedness, other Gastrointestinal: negative: Nausea, Vomiting, Abdominal Pain, Diarrhea, Constipation, Melena, Hematochezia, Other Genitourinary: negative: Dysuria, Frequency, Incontinence, Hematuria, Retention , Other Musculoskeletal: negative: Neck Pain, Shoulder Pain, Arm Pain, Back Pain, Hand Pain, Leg Pain, Foot Pain, Other Skin: negative: Rash, Lesions, Vasyl, Bruising, Other Neurological: Confusion. negative: Weakness, Numbness, Incoordination, Change in Speech, Seizures, Other - Medications/Allergies Allergies/Adverse Reactions: Allergies Allergy/AdvReac Type Severity Reaction Status Date / Time ciprofloxacin [From Cipro] Allergy Verified 11/19/17 10:01 levofloxacin [From Levaquin] Allergy Verified 11/19/17 10:01 Medications: Current Medications Acetaminophen (Tylenol) 650 mg PO Q4H PRN PRN Reason: Headache/Fever or Pain Last Admin: 11/21/17 02:43 Dose: 650 mg Al Hydroxide/Mg Hydroxide (Maalox) 30 ml PO Q6H PRN PRN Reason: Heartburn or Indigestion Last Admin: 11/19/17 20:23 Dose: 30 ml Albuterol/Ipratropium (Duoneb) 3 ml NEB [id number] [facility] Last Admin: 11/21/17 06:47 Dose: Not Given Allopurinol (Zyloprim) 100 mg PO DAILY [facility] Last Admin: 11/21/17 09:14 Dose: 100 mg Artificial Tears (Tears Naturale) 0 drop EA EYE PRN PRN PRN Reason: Dry Eyes Aspirin (Ecotrin) 81 mg PO DAILY [facility] Last Admin: 11/21/17 09:14 Dose: 81 mg Cholecalciferol (Vitamin D3) 1,000 units PO DAILY [facility] Last Admin: 11/21/17 09:14 Dose: 1,000 units Furosemide (Lasix) 20 mg PO DAILY [facility] Last Admin: 11/21/17 09:15 Dose: 20 mg Guaifenesin (Robitussin Sf) 200 mg PO Q4H PRN PRN Reason: Cough Guaifenesin (Mucinex) 600 mg PO Q12HR [facility] Last Admin: 11/21/17 09:14 Dose: 600 mg Heparin Sodium (Porcine) (Heparin) 5,000 units SC BID [facility] Last Admin: 11/21/17 09:14 Dose: 5,000 units Hydralazine HCl (Apresoline) 10 mg SLOW IVP Q4H PRN PRN Reason: Systolic BP > 180 Hydroxyurea (Hydrea) 500 mg PO DAILY [facility] Last Admin: 11/21/17 09:14 Dose: 500 mg Cefepime HCl 1 gm/ Sodium (Chloride) 100 mls @ 200 mls/hr IVPB Q12HR [facility] Last Admin: 11/21/17 09:14 Dose: 100 mls Azithromycin 500 mg/ Sodium (Chloride) 250 mls @ 250 mls/hr IVPB 1100 [facility] Last Admin: 11/20/17 11:28 Dose: 250 mls Loperamide HCl (Imodium) 2 mg PO PRN PRN PRN Reason: Diarrhea/Loose Stools Loratadine (Claritin) 10 mg PO DAILYPRN PRN PRN Reason: Sinus Symptoms Magnesium Hydroxide (Milk Of Magnesium) 30 ml PO DAILYPRN PRN PRN Reason: Constipation Mineral Oil/White Petrolatum (Eucerin Cream) 0 gm TOP BIDPRN PRN PRN Reason: Dry Skin Miscellaneous Medication (Pharmacy To Dose) 0 each IVPB ASDIR PRN PRN Reason: Pharmacy to Dose ANTIBIOTICS Ondansetron HCl (Zofran Odt) 4 mg PO Q6H PRN PRN Reason: Nausea/Vomiting Ondansetron HCl (Zofran) 4 mg IVP Q6H PRN PRN Reason: Nausea/Vomiting Pantoprazole Sodium (Protonix) 40 mg PO DAILY [facility] Last Admin: 11/21/17 09:14 Dose: 40 mg Phenol (Chloraseptic [place] 180 Ml Bot) 0 ml PO PRN PRN PRN Reason: Sore Throat Saccharomyces Boulardii (Florastor) 250 mg PO DAILY [facility] Last Admin: 11/21/17 09:13 Dose: 250 mg Senna (Senokot) 2 tab PO HSPRN PRN PRN Reason: Constipation Sodium Chloride (Flush - Normal Saline) 10 ml IVF PRN PRN PRN Reason: Saline Flush Sodium Chloride ([place] Nasal [place] 0.65%) 0 ml EA NARE QIDPRN PRN PRN Reason: Nasal Congestion Sodium Chloride (Flush - Normal Saline) 10 ml IVF BID [facility] Last Admin: 11/21/17 09:14 Dose: 10 ml Terazosin HCl (Hytrin) 10 mg PO HS [facility] Last Admin: 11/20/17 21:00 Dose: 10 mg
--- NOTE | 2017-11-21 12:27 | EKG ---
Test Reason : Blood Pressure : / mmHG Vent. Rate : 116 BPM Atrial Rate : 116 BPM P-R Int : 126 ms QRS Dur : 112 ms QT Int : 322 ms P-R-T Axes : 145 -26 107 degrees QTc Int : 447 ms Unusual P axis, possible ectopic atrial tachycardia (Agree) Incomplete right bundle branch block Abnormal ECG When compared with ECG of 19-NOV-2017 20:03, Ectopic atrial rhythm has replaced Sinus rhythm Confirmed by ANALI MELTON ([id number]) on 11/21/2017 12:26:57 PM Referred By: GIL Confirmed By:ANALI MELTON
--- NOTE | 2017-11-21 12:41 | PRG ---
DATE OF SERVICE: 11/21/2017 SUBJECTIVE: The patient had a code green called last night. He was confused. Nothing specific was found. Apparently, he is having difficulty with polyuria at night. I am wondering if part of this i s not inadequate emptying of his bladder. He did have some hallucinations and required some Ativan l ast night. PHYSICAL EXAMINATION: VITAL SIGNS: His temperature is 98.4. He had a T-max of 100.5 last night, pulse 91, respiration 20, O2 sat 93%, blood pressure 112/75. HEENT: Unremarkable. NECK: No JVD. LUNGS: Clear. CARDIAC: S1 and S2 regular. ABDOMEN: Soft. EXTREMITIES: No edema. LABORATORY DATA: Sodium 140, potassium 4.5, chloride 107, CO2 23, BUN 31, creatinine 2.0, glucose 94 . Troponin was less than 0.01. BNP 297. ASSESSMENT: 1. Suspected diastolic heart dysfunction. 2. Probably inadequate bladder emptying from prostatic hypertrophy. 3. Pneumonia. 4. Hypoxic respiratory failure. 5. Polycythemia vera. 6. Thrombocytosis. 7. Myelofibrosis. PLAN: 1. Try low dose of Lasix during the day. 2. We will have the nurse bladder scan to see what his postvoid residual is. 3. May need Urology input. 4. Continue antibiotics.
[2017-11-21] MEDS: Terazosin HCl 5 MG CAP PO SCH (21:30)
[2017-11-22 04:44] LABS: Critical Call w/ Read Back D; Hemoglobin 7.5 g/dL (14.0-18.0); Mean Corpuscular HGB CONC 30.1 g/dL (32.0-36.0); Mean Corpuscular Volume 89.8 fl (80.0-94.0); Mean Platelet Volume 7.4 fL (7.4-10.4); Platelet Count 1335 thou/uL (130-400); Red Blood Cell (RBC) Count 2.76 mill/uL (4.70-6.10); White Blood Cell (WBC) Count 34.3 thou/uL (4.8-10.8)
[2017-11-22 05:55] LABS: Anisocytosis SLIGHT = 6-15 cells (100X) (0-5/hpf); Band 3 % (5-11); Elliptocytes SLIGHT = 2-5 cells (100X) (0-1/hpf); Eosinophils 2 % (0-10); Hypersemented Neutrophil MODERATE; Hypochromia SLIGHT = 6-15 cells (100X) (0-5/hpf); Lymphocytes 6 % (21-51); MDiff Complete? YES; Monocytes 6 % (0-10); Neutrophil 82 % (42-75); Ovalocytes MODERATE= 6-15 cells (100X) (0-1/hpf); PLT Morphology Comment Appears Increased; Tear Drops SLIGHT = 2-5 cells (100X) (0-1/hpf)
[2017-11-22] MEDS ORDERED: Epoetin (ESRD) 20,000 UNITS/ML SC SCH (09:00)
[2017-11-22] MEDS: Furosemide 20 MG TAB PO SCH (09:10)
[2017-11-22] MEDS: Azithromycin 250 MG TAB PO SCH (09:10)
[2017-11-22] MEDS: Aspirin 81 mg Enteric Coated Tablet PO SCH (09:10)
[2017-11-22] MEDS: guaiFENesin ER 600 MG TAB PO SCH ×2 (09:10→21:46)
[2017-11-22] MEDS: Saccharomyces boulardii 250 MG CAP PO SCH (09:10)
[2017-11-22] MEDS: Allopurinol 100 MG TAB PO SCH (09:10)
[2017-11-22] MEDS: Cefepime 1 GM in Sodium Chloride 0.9% 100 ML IVPB SCH ×2 (09:10→21:44)
[2017-11-22] MEDS: Heparin 5,000 UNITS/ML VIAL SC SCH ×2 (09:11→21:47)
[2017-11-22] MEDS: Hydroxyurea 500 MG CAP PO SCH (09:11)
--- NOTE | 2017-11-22 09:32 | PDOC.PN ---
- Subjective Encounter Start Date: 11/22/17 Encounter Start Time: 07:00 Patient seen and examined for pneumonia. No new complaints. No overnight events he had good night yesterday - Objective Resuscitation Status: Resuscitation Status FULL:Full Resuscitation MAR Reviewed: Yes Vital Signs & Weight: Vital Signs (12 hours) Temp Pulse Resp BP Pulse Ox 11/22/17 07:50 98.3 F 92 20 122/68 92 L 11/22/17 06:15 94 L 11/22/17 06:14 85 16 94 L 11/22/17 00:01 97 11/21/17 23:44 71 16 97 11/21/17 23:22 97.6 F 82 16 128/66 98 Weight Weight 149 lb 14.629 oz I&O: 11/21/17 11/22/17 11/23/17 06:59 06:59 06:59 Intake Total 2580 1440 Output Total 2875 Balance -295 1440 Result Diagrams: 11/22/17 03:55 11/21/17 01:36 Phys Exam - Physical Examination Constitutional: NAD HEENT: PERRLA, moist MMs, sclera anicteric Neck: no nodes, no JVD, supple, full ROM Respiratory: no wheezing, no rhonchi left base rales Cardiovascular: RRR, no significant murmur, no rub Gastrointestinal: soft, non-tender, no distention, positive bowel sounds Musculoskeletal: no edema, pulses present Neurological: non-focal, normal sensation, moves all 4 limbs Lymphatic: no nodes Psychiatric: normal affect, A&O x 3 Skin: no rash, normal turgor Dx/Plan (1) Acute worsening of stage 3 chronic kidney disease Code(s): N18.3 - CHRONIC KIDNEY DISEASE, STAGE 3 (MODERATE) Status: Acute Comment: improving creatinine (2) Acute respiratory failure with hypoxia Code(s): J96.01 - ACUTE RESPIRATORY FAILURE WITH HYPOXIA Status: Resolved (3) Community acquired bacterial pneumonia Code(s): J15.9 - UNSPECIFIED BACTERIAL PNEUMONIA Status: Acute Comment: improving (4) Sepsis with acute organ dysfunction Code(s): A41.9 - SEPSIS, UNSPECIFIED ORGANISM; R65.20 - SEVERE SEPSIS WITHOUT SEPTIC SHOCK Status: Acute (5) Diverticulosis of colon Code(s): K57.30 - DVRTCLOS OF LG INT W/O PERFORATION OR ABSCESS W/O BLEEDING Status: Chronic (6) GERD (gastroesophageal reflux disease) Code(s): K21.9 - GASTRO-ESOPHAGEAL REFLUX DISEASE WITHOUT ESOPHAGITIS Status: Chronic (7) H/O abdominal aortic aneurysm repair Code(s): Z98.890 - OTHER SPECIFIED POSTPROCEDURAL STATES Status: Chronic (8) Hypertension Code(s): I10 - ESSENTIAL (PRIMARY) HYPERTENSION Status: Chronic Qualifiers: (9) Leucocytosis Code(s): D72.829 - ELEVATED WHITE BLOOD CELL COUNT, UNSPECIFIED Status: Chronic Comment: due to polycythemia vera (10) Polycythemia vera Code(s): D45 - POLYCYTHEMIA VERA Status: Chronic (11) Splenomegaly Code(s): R16.1 - SPLENOMEGALY, NOT ELSEWHERE CLASSIFIED Status: Chronic Comment: Secondary to polycythemia (12) Hyperuricemia Code(s): E79.0 - HYPERURICEMIA W/O SIGNS OF INFLAM ARTHRIT AND TOPHACEOUS DIS Status: Acute - Plan cont current plan of care, plan discussed w/ family, continue antibiotics, PT/OT , respiratory therapy * continue cefepime, azithromycin * on discharge omnicef * today Dr Moore planning to start new meds for polycythemia Vera * medication reviewed as below * symptomatic treatment * discussed with family * ambulate as tolerated * if stable today, then will consider discharge tomorrow Review of Systems - Review of Systems Eyes: negative: Pain, Vision Change, Conjunctivae Inflammation, Eyelid Inflammation, Redness, Other ENT: negative: Ear Pain, Ear Discharge, Nose Pain, Nose Discharge, Nose Congestion, Mouth Pain, Mouth Swelling, Throat Pain, Throat Swelling, Other Respiratory: negative: Cough, Dry, Shortness of Breath, Hemoptysis, SOB with Excertion, Pleuritic Pain, Sputum, Wheezing Cardiovascular: negative: chest pain, palpitations, orthopnea, paroxysmal nocturnal dyspnea, edema, light headedness, other Gastrointestinal: negative: Nausea, Vomiting, Abdominal Pain, Diarrhea, Constipation, Melena, Hematochezia, Other Genitourinary: negative: Dysuria, Frequency, Incontinence, Hematuria, Retention , Other Musculoskeletal: negative: Neck Pain, Shoulder Pain, Arm Pain, Back Pain, Hand Pain, Leg Pain, Foot Pain, Other Skin: negative: Rash, Lesions, Vasyl, Bruising, Other - Medications/Allergies Allergies/Adverse Reactions: Allergies Allergy/AdvReac Type Severity Reaction Status Date / Time ciprofloxacin [From Cipro] Allergy Verified 11/19/17 10:01 levofloxacin [From Levaquin] Allergy Verified 11/19/17 10:01 Medications: Current Medications Acetaminophen (Tylenol) 650 mg PO Q4H PRN PRN Reason: Headache/Fever or Pain Last Admin: 11/21/17 22:04 Dose: 650 mg Al Hydroxide/Mg Hydroxide (Maalox) 30 ml PO Q6H PRN PRN Reason: Heartburn or Indigestion Last Admin: 11/19/17 20:23 Dose: 30 ml Albuterol/Ipratropium (Duoneb) 3 ml NEB [id number] [facility] Last Admin: 11/22/17 06:14 Dose: 3 ml Allopurinol (Zyloprim) 100 mg PO DAILY [facility] Last Admin: 11/22/17 09:10 Dose: 100 mg Anagrelide HCl (Agrylin) 0.5 mg PO BID [facility] Artificial Tears (Tears Naturale) 0 drop EA EYE PRN PRN PRN Reason: Dry Eyes Aspirin (Ecotrin) 81 mg PO DAILY [facility] Last Admin: 11/22/17 09:10 Dose: 81 mg Azithromycin (Zithromax) 250 mg PO DAILY [facility] Stop: 11/25/17 09:01 Last Admin: 11/22/17 09:10 Dose: 250 mg Cholecalciferol (Vitamin D3) 1,000 units PO DAILY [facility] Last Admin: 11/22/17 09:11 Dose: 1,000 units Epoetin [place] (Procrit) 20,000 units SC Q7DAYS [facility] Furosemide (Lasix) 20 mg PO DAILY [facility] Last Admin: 11/22/17 09:10 Dose: 20 mg Guaifenesin (Robitussin Sf) 200 mg PO Q4H PRN PRN Reason: Cough Guaifenesin (Mucinex) 600 mg PO Q12HR [facility] Last Admin: 11/22/17 09:10 Dose: 600 mg Heparin Sodium (Porcine) (Heparin) 5,000 units SC BID [facility] Last Admin: 11/22/17 09:11 Dose: 5,000 units Hydralazine HCl (Apresoline) 10 mg SLOW IVP Q4H PRN PRN Reason: Systolic BP > 180 Hydroxyurea (Hydrea) 500 mg PO DAILY [facility] Last Admin: 11/22/17 09:11 Dose: 500 mg Cefepime HCl 1 gm/ Sodium (Chloride) 100 mls @ 200 mls/hr IVPB Q12HR [facility] Last Admin: 11/22/17 09:10 Dose: 100 mls Loperamide HCl (Imodium) 2 mg PO PRN PRN PRN Reason: Diarrhea/Loose Stools Loratadine (Claritin) 10 mg PO DAILYPRN PRN PRN Reason: Sinus Symptoms Magnesium Hydroxide (Milk Of Magnesium) 30 ml PO DAILYPRN PRN PRN Reason: Constipation Mineral Oil/White Petrolatum (Eucerin Cream) 0 gm TOP BIDPRN PRN PRN Reason: Dry Skin Miscellaneous Medication (Pharmacy To Dose) 0 each IVPB ASDIR PRN PRN Reason: Pharmacy to Dose ANTIBIOTICS Ondansetron HCl (Zofran Odt) 4 mg PO Q6H PRN PRN Reason: Nausea/Vomiting Ondansetron HCl (Zofran) 4 mg IVP Q6H PRN PRN Reason: Nausea/Vomiting Pantoprazole Sodium (Protonix) 40 mg PO DAILY [facility] Last Admin: 11/22/17 09:11 Dose: 40 mg Phenol (Chloraseptic [place] 180 Ml Bot) 0 ml PO PRN PRN PRN Reason: Sore Throat Saccharomyces Boulardii (Florastor) 250 mg PO DAILY [facility] Last Admin: 11/22/17 09:10 Dose: 250 mg Senna (Senokot) 2 tab PO HSPRN PRN PRN Reason: Constipation Sodium Chloride (Flush - Normal Saline) 10 ml IVF PRN PRN PRN Reason: Saline Flush Sodium Chloride ([place] Nasal [place] 0.65%) 0 ml EA NARE QIDPRN PRN PRN Reason: Nasal Congestion Sodium Chloride (Flush - Normal Saline) 10 ml IVF BID [facility] Last Admin: 11/21/17 21:30 Dose: 10 ml Terazosin HCl (Hytrin) 10 mg PO HS [facility] Last Admin: 11/21/17 21:30 Dose: 10 mg
[2017-11-22] MEDS: Anagrelide HCl 0.5 MG CAP PO SCH ×2 (10:07→21:49)
--- NOTE | 2017-11-22 10:46 | PRG ---
DATE OF SERVICE: 11/22/2017 His states that he has been depressed and crying some. I do not see any medications that we are giving him that could cause that. The patient overall says he feels a little bit better and is damon thing better. PHYSICAL EXAMINATION: VITAL SIGNS: Temperature is 98.3, pulse 92, respiration 20, O2 sat 92%, blood pressure 122/68. HEENT: Unremarkable. NECK: No JVD. LUNGS: He had inspiratory crackles in left base, right side clear. CARDIAC: S1 and S2 regular. ABDOMEN: Soft. EXTREMITIES: No edema. LABORATORY DATA: White blood cell count 34.3, hematocrit 24.8, platelet count of 1335. Sodium from yesterday 140, BUN 31, creatinine 2.0, glucose 94. ASSESSMENT: 1. Pneumonia. 2. Myeloproliferative disorder with myelofibrosis - the thrombocytosis, continues to be concerning. PLAN: I will get his chemistry repeated tomorrow. I started low dose Lasix yesterday. We will cont inue IV antibiotics. Hematology is treating his thrombocytosis.
[2017-11-22] MEDS: Acetaminophen 325 MG TAB PO PRN ×2 (13:22→21:46)
--- NOTE | 2017-11-22 14:30 | EKG ---
Test Reason : Blood Pressure : / mmHG Vent. Rate : 092 BPM Atrial Rate : 092 BPM P-R Int : 130 ms QRS Dur : 118 ms QT Int : 376 ms P-R-T Axes : 069 -67 030 degrees QTc Int : 464 ms Sinus rhythm with Premature atrial complexes with Abberant conduction Right bundle branch block Left anterior fascicular block Bifascicular block Abnormal ECG When compared with ECG of 21-NOV-2017 01:03, Sinus rhythm has replaced Ectopic atrial rhythm Left anterior fascicular block is now Present Confirmed by ANALI MELTON ([id number]) on 11/22/2017 2:30:30 PM Referred By: GIL Confirmed By:ANALI MELTON
[2017-11-22] MEDS: Terazosin HCl 5 MG CAP PO SCH (21:49)
[2017-11-23 04:30] LABS: Anion Gap 13 mmol/L (10-20); BUN (Urea Nitrogen) 27 mg/dL (8.4-25.7); Calc. Creatinine Clearance 30 mL/min (70-130); Calcium 8.7 mg/dL (7.8-10.44); Carbon Dioxide 23 mmol/L (23-31); Chloride 109 mmol/L (98-107); Estimated GFR-MDRD 32; Glucose 94 mg/dL (83-110); Potassium 4.1 mmol/L (3.5-5.1); Sodium 141 mmol/L (136-145)
[2017-11-23 04:52] LABS: Band 1 % (5-11); Hemoglobin 8.1 g/dL (14.0-18.0); Lymphocytes 4 % (21-51); MDiff Complete? YES; Mean Corpuscular HGB CONC 29.3 g/dL (32.0-36.0); Mean Corpuscular Hemoglobin 27.7 pg (27.0-31.0); Mean Corpuscular Volume 94.5 fl (80.0-94.0); Mean Platelet Volume 7.5 fL (7.4-10.4); Monocytes 4 % (0-10); Neutrophil 88 % (42-75); PLT Morphology Comment Appears Increased; Platelet Count Greater than 1440 thou/uL (130-400); RBC Distribution Width 20.4 % (11.5-14.5); Red Blood Cell (RBC) Count 2.92 mill/uL (4.70-6.10); White Blood Cell (WBC) Count 39.4 thou/uL (4.8-10.8)
[2017-11-23] MEDS: Furosemide 20 MG TAB PO SCH (08:32)
[2017-11-23] MEDS: Heparin 5,000 UNITS/ML VIAL SC SCH (08:32)
[2017-11-23] MEDS: Saccharomyces boulardii 250 MG CAP PO SCH (08:32)
[2017-11-23] MEDS: Allopurinol 100 MG TAB PO SCH (08:32)
[2017-11-23] MEDS: Azithromycin 250 MG TAB PO SCH (08:33)
[2017-11-23] MEDS: guaiFENesin ER 600 MG TAB PO SCH (08:33)
[2017-11-23] MEDS: Aspirin 81 mg Enteric Coated Tablet PO SCH (08:33)
[2017-11-23] MEDS: Anagrelide HCl 0.5 MG CAP PO SCH (08:33)
[2017-11-23] MEDS: Cefepime 1 GM in Sodium Chloride 0.9% 100 ML IVPB SCH (09:17)
--- NOTE | 2017-11-23 09:51 | PRG ---
DATE OF SERVICE: 11/23/2017 The patient is doing better. He wants to go home. PHYSICAL EXAMINATION: VITAL SIGNS: Temperature 98.6, pulse 89, respirations 20, O2 sat 95%, blood pressure 140/74. HEENT: Unremarkable. NECK: No JVD. LUNGS: Fairly clear without wheezing or rhonchi. CARDIAC: S1 and S2 regular. ABDOMEN: Soft. EXTREMITIES: No edema. LABORATORY DATA: White blood cell count 39.4, hematocrit 27.6, platelet count 1440. Sodium 141, pot assium 4.1, chloride 109, CO2 23, BUN 27, creatinine 2.0, glucose 94. ASSESSMENT: 1. Myeloproliferative disorder. 2. Improved pneumonia. RECOMMENDATIONS: I think from an antibiotic standpoint, he can probably be switched from cefepime to Omnicef. I will stop his Lasix. I do not really have any suggestions regarding the myeloproliferat mayra status. I will leave this up to Oncology in terms of when they think he can go home.
--- NOTE | 2017-11-23 10:47 | PDOC.PN ---
- Subjective Encounter Start Date: 11/23/17 Encounter Start Time: 07:00 Patient seen and examined for pneumonia. c/o cramps. No overnight events - Objective Resuscitation Status: Resuscitation Status FULL:Full Resuscitation MAR Reviewed: Yes Vital Signs & Weight: Vital Signs (12 hours) Temp Pulse Resp BP Pulse Ox 11/23/17 08:00 98.6 F 89 20 95 11/23/17 07:48 98.6 F 89 20 140/74 95 11/23/17 06:12 95 11/23/17 06:08 96 16 95 11/23/17 00:44 97 11/22/17 23:57 97.9 F 88 16 129/71 96 11/22/17 23:42 86 16 97 Weight Weight 149 lb 14.629 oz I&O: 11/22/17 11/23/17 11/24/17 06:59 06:59 06:59 Intake Total 1440 2270 Balance 1440 2270 Result Diagrams: 11/23/17 03:57 11/23/17 03:57 Phys Exam - Physical Examination Constitutional: NAD HEENT: PERRLA, moist MMs, sclera anicteric Neck: no JVD, supple Respiratory: no wheezing, no rales, no rhonchi Cardiovascular: RRR, no rub SM+ Gastrointestinal: soft, non-tender, no distention, positive bowel sounds Musculoskeletal: no edema, pulses present Neurological: non-focal, normal sensation, moves all 4 limbs Psychiatric: normal affect, A&O x 3 Skin: no rash, normal turgor Dx/Plan (1) Acute worsening of stage 3 chronic kidney disease Code(s): N18.3 - CHRONIC KIDNEY DISEASE, STAGE 3 (MODERATE) Status: Acute Comment: improving creatinine (2) Acute respiratory failure with hypoxia Code(s): J96.01 - ACUTE RESPIRATORY FAILURE WITH HYPOXIA Status: Resolved (3) Community acquired bacterial pneumonia Code(s): J15.9 - UNSPECIFIED BACTERIAL PNEUMONIA Status: Acute Comment: improving (4) Sepsis with acute organ dysfunction Code(s): A41.9 - SEPSIS, UNSPECIFIED ORGANISM; R65.20 - SEVERE SEPSIS WITHOUT SEPTIC SHOCK Status: Acute (5) Diverticulosis of colon Code(s): K57.30 - DVRTCLOS OF LG INT W/O PERFORATION OR ABSCESS W/O BLEEDING Status: Chronic (6) GERD (gastroesophageal reflux disease) Code(s): K21.9 - GASTRO-ESOPHAGEAL REFLUX DISEASE WITHOUT ESOPHAGITIS Status: Chronic (7) H/O abdominal aortic aneurysm repair Code(s): Z98.890 - OTHER SPECIFIED POSTPROCEDURAL STATES Status: Chronic (8) Hypertension Code(s): I10 - ESSENTIAL (PRIMARY) HYPERTENSION Status: Chronic Qualifiers: (9) Leucocytosis Code(s): D72.829 - ELEVATED WHITE BLOOD CELL COUNT, UNSPECIFIED Status: Chronic Comment: due to polycythemia vera (10) Polycythemia vera Code(s): D45 - POLYCYTHEMIA VERA Status: Chronic (11) Splenomegaly Code(s): R16.1 - SPLENOMEGALY, NOT ELSEWHERE CLASSIFIED Status: Chronic Comment: Secondary to polycythemia (12) Hyperuricemia Code(s): E79.0 - HYPERURICEMIA W/O SIGNS OF INFLAM ARTHRIT AND TOPHACEOUS DIS Status: Acute - Plan cont current plan of care, plan discussed w/ family, continue antibiotics * as far as pneumonia point of view pt is doing well * will ask oncology about treatment of PV, as it is getting worse * medication reviewed as below * symptomatic treatment. * lasix discontinued Review of Systems - Review of Systems Eyes: negative: Pain, Vision Change, Conjunctivae Inflammation, Eyelid Inflammation, Redness, Other ENT: negative: Ear Pain, Ear Discharge, Nose Pain, Nose Discharge, Nose Congestion, Mouth Pain, Mouth Swelling, Throat Pain, Throat Swelling, Other Respiratory: negative: Cough, Dry, Shortness of Breath, Hemoptysis, SOB with Excertion, Pleuritic Pain, Sputum, Wheezing Cardiovascular: negative: chest pain, palpitations, orthopnea, paroxysmal nocturnal dyspnea, edema, light headedness, other Gastrointestinal: negative: Nausea, Vomiting, Abdominal Pain, Diarrhea, Constipation, Melena, Hematochezia, Other Genitourinary: negative: Dysuria, Frequency, Incontinence, Hematuria, Retention , Other Musculoskeletal: negative: Neck Pain, Shoulder Pain, Arm Pain, Back Pain, Hand Pain, Leg Pain, Foot Pain, Other Skin: negative: Rash, Lesions, Vasyl, Bruising, Other - Medications/Allergies Allergies/Adverse Reactions: Allergies Allergy/AdvReac Type Severity Reaction Status Date / Time ciprofloxacin [From Cipro] Allergy Verified 11/19/17 10:01 levofloxacin [From Levaquin] Allergy Verified 11/19/17 10:01 Medications: Current Medications Acetaminophen (Tylenol) 650 mg PO Q4H PRN PRN Reason: Headache/Fever or Pain Last Admin: 11/22/17 21:46 Dose: 650 mg Al Hydroxide/Mg Hydroxide (Maalox) 30 ml PO Q6H PRN PRN Reason: Heartburn or Indigestion Last Admin: 11/19/17 20:23 Dose: 30 ml Albuterol/Ipratropium (Duoneb) 3 ml NEB [id number] [facility] Last Admin: 11/23/17 06:08 Dose: 3 ml Allopurinol (Zyloprim) 100 mg PO DAILY [facility] Last Admin: 11/23/17 08:32 Dose: 100 mg Anagrelide HCl (Agrylin) 0.5 mg PO BID [facility] Last Admin: 11/23/17 08:33 Dose: 0.5 mg Artificial Tears (Tears Naturale) 0 drop EA EYE PRN PRN PRN Reason: Dry Eyes Aspirin (Ecotrin) 81 mg PO DAILY [facility] Last Admin: 11/23/17 08:33 Dose: 81 mg Azithromycin (Zithromax) 250 mg PO DAILY [facility] Stop: 11/25/17 09:01 Last Admin: 11/23/17 08:33 Dose: 250 mg Cholecalciferol (Vitamin D3) 1,000 units PO DAILY [facility] Last Admin: 11/23/17 08:33 Dose: 1,000 units Epoetin [place] (Procrit) 20,000 units SC Q7DAYS [facility] Last Admin: 11/22/17 13:08 Dose: 20,000 units Guaifenesin (Robitussin Sf) 200 mg PO Q4H PRN PRN Reason: Cough Guaifenesin (Mucinex) 600 mg PO Q12HR [facility] Last Admin: 11/23/17 08:33 Dose: 600 mg Heparin Sodium (Porcine) (Heparin) 5,000 units SC BID [facility] Last Admin: 11/23/17 08:32 Dose: 5,000 units Hydralazine HCl (Apresoline) 10 mg SLOW IVP Q4H PRN PRN Reason: Systolic BP > 180 Cefepime HCl 1 gm/ Sodium (Chloride) 100 mls @ 200 mls/hr IVPB Q12HR [facility] Last Admin: 11/23/17 09:17 Dose: 100 mls Loperamide HCl (Imodium) 2 mg PO PRN PRN PRN Reason: Diarrhea/Loose Stools Loratadine (Claritin) 10 mg PO DAILYPRN PRN PRN Reason: Sinus Symptoms Magnesium Hydroxide (Milk Of Magnesium) 30 ml PO DAILYPRN PRN PRN Reason: Constipation Mineral Oil/White Petrolatum (Eucerin Cream) 0 gm TOP BIDPRN PRN PRN Reason: Dry Skin Miscellaneous Medication (Pharmacy To Dose) 0 each IVPB ASDIR PRN PRN Reason: Pharmacy to Dose ANTIBIOTICS Ondansetron HCl (Zofran Odt) 4 mg PO Q6H PRN PRN Reason: Nausea/Vomiting Ondansetron HCl (Zofran) 4 mg IVP Q6H PRN PRN Reason: Nausea/Vomiting Pantoprazole Sodium (Protonix) 40 mg PO DAILY [facility] Last Admin: 11/23/17 08:32 Dose: 40 mg Phenol (Chloraseptic [place] 180 Ml Bot) 0 ml PO PRN PRN PRN Reason: Sore Throat Saccharomyces Boulardii (Florastor) 250 mg PO DAILY [facility] Last Admin: 11/23/17 08:32 Dose: 250 mg Senna (Senokot) 2 tab PO HSPRN PRN PRN Reason: Constipation Sodium Chloride (Flush - Normal Saline) 10 ml IVF PRN PRN PRN Reason: Saline Flush Sodium Chloride ([place] Nasal [place] 0.65%) 0 ml EA NARE QIDPRN PRN PRN Reason: Nasal Congestion Sodium Chloride (Flush - Normal Saline) 10 ml IVF BID [facility] Last Admin: 11/22/17 21:49 Dose: Not Given Terazosin HCl (Hytrin) 10 mg PO [facility] Last Admin: 11/22/17 21:49 Dose: 10 mg
[2017-11-23 12:01] VITALS: BP 171/84; TEMP 98.3
--- NOTE | 2017-11-23 12:05 | DIS ---
DATE OF ADMISSION: 11/19/2017 DATE OF DISCHARGE: 11/23/2017 PRIMARY CARE PHYSICIAN: Dr. Trent Guardado. DISCHARGE DISPOSITION: Home. PRIMARY DISCHARGE DIAGNOSES: Acute hypoxic respiratory failure, resolved; acute on chronic kidney fa ilure; baseline chronic kidney disease stage 3; community-acquired bacterial pneumonia; sepsis with a cute organ dysfunction; hyperuricemia. SECONDARY DISCHARGE DIAGNOSES: Chronic splenomegaly, polycythemia vera, hypertension, abdominal aort ic aneurysm repair, gastroesophageal reflux disease, sensorineural deafness, colonic diverticulosis. PRIMARY PROCEDURE/OPERATION: None. RADIOLOGICAL INVESTIGATION: Chest x-ray showed bibasilar infiltration. Echocardiography showed EF 6 5%-70%, aortic wall sclerosis, and moderate tricuspid regurgitation. Repeat chest x-ray showed left lower lobe infiltration. SIGNIFICANT LABORATORY DATA: WBC 39.4, hemoglobin 8.1, platelet one more than 1440. Sodium 141, pot assium 4.1, BUN 27, creatinine 2.06, calcium 8.7. Ferritin 53.32. LFT normal. BNP 297.3. Cardiac enzymes negative. Uric acid 11.1. Blood culture negative. DISCHARGE MEDICATIONS: Hydroxyurea 500 mg p.o. daily, Anagrelide 0.5 mg p.o. b.i.d., aspirin 81 mg p .o. at bedtime, Omnicef 300 mg p.o. b.i.d. for 7 days, allopurinol 100 mg p.o. daily, Mucinex 600 mg p.o. b.i.d. for 7 days, hydroxyurea 500 mg p.o. daily, Prevacid 30 mg p.o. b.i.d., Florastor 250 mg p .o. daily, Hytrin 10 mg p.o. at bedtime. CONTRAINDICATIONS: None. CODE STATUS: FULL CODE. INPATIENT CONSULTANTS: Manager [employer] Dr. Clark was following while in hospital. Dr. Richmond was f ollowing while in hospital. TEST RESULTS PENDING ON DISCHARGE: None. ALLERGIES: CIPROFLOXACIN. DISCHARGE PLAN: Post hospital, the patient will follow up with Dr. Clark on Sunday. The patient will make appointment with primary care physician in 1 week. HOSPITAL COURSE: A 77-year-old male with above-mentioned medical problem who was admitted by me on 0 11/19/2017. Please see my HPI for further detail. He was admitted initially for bibasilar pneumonia, more on the right side. He was treated with cefepime, azithromycin and vancomycin. Subsequently, a ntibiotic therapy was reduced to cefepime and azithromycin. On admission, he was meeting sepsis with acute organ dysfunction criteria. He had acute hypoxic respiratory failure. 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 Upon stabilization, the patient was transferred to medical floor. The patient also had acute on intensive care unit nurse mariposa kidney failure and that was improved to the baseline. The patient had a fluctuating WBC and plat elet count while in hospital, but it was related with polycythemia vera. We consulted Dr. Clark a nd he started Anagrelide therapy while in hospital. At this point, the patient had improvement in pneumonia, but polycythemia vera and myelofibrosis is n ot under control, but for that reason, there is nothing to be done other than follow up with Oncology as an outpatient basis. From pneumonia perspective, the patient has significant improvement. By the time of discharge, he was not requiring any oxygen. He was on room air. He had echocardiogra phy during this admission which showed hyperdynamic circulation and moderate tricuspid regurgitation. During this admission, the patient also had one-time code green, which was related with his chest p ain, but his chest pain description was noncardiac and we ruled out acute coronary syndrome. The patient is seen and examined at bedside today. All consultants cleared him for discharge. He wi ll follow up with Dr. Clark on Sunday. All new medication prescription sent to his pharmacy. The patient had hyperuricemia and that is why we started allopurinol during this admission. Overall, the patient is medically stable for discharge. Please see my progress note from today for f urther detail.
[2017-11-24] MEDS ORDERED: Hydroxyurea 500 MG CAP PO SCH (09:00)
== END 2017-11-23 12:47 | disposition home or self-care (01) | DRG 871 ==
LOC: ERS 05:28 → IMCU/EMU 09:37 → ONC 11-20 10:48
PROVIDERS: ADMIT Internal Medicine; ATTEND Internal Medicine
DX: A41.9 Sepsis, unspecified organism (principal); J96.01 Acute respiratory failure with hypoxia; J15.9 Unspecified bacterial pneumonia; D75.81 Myelofibrosis; N17.9 Acute kidney failure, unspecified; I12.9 Hypertensive chronic kidney disease with stage 1 through stage 4 chronic kidney disease, or unspecified chronic kidney disease; R65.20 Severe sepsis without septic shock; D45 Polycythemia vera; N18.3 Chronic kidney disease, stage 3 (moderate); K21.9 Gastro-esophageal reflux disease without esophagitis; F41.9 Anxiety disorder, unspecified; F32.9 Major depressive disorder, single episode, unspecified; H90.5 Unspecified sensorineural hearing loss; E79.0 Hyperuricemia without signs of inflammatory arthritis and tophaceous disease; I36.1 Nonrheumatic tricuspid (valve) insufficiency; K57.30 Diverticulosis of large intestine without perforation or abscess without bleeding; Z87.891 Personal history of nicotine dependence; Z88.1 Allergy status to other antibiotic agents; Z79.82 Long term (current) use of aspirin; Z79.899 Other long term (current) drug therapy
CPT/HCPCS: 36415; 71045; 80048; 80053; 81003; 81015; 82550; 82553; 82570; 82728; 82805; 83605; 83880; 84156; 84484; 84550; 85025; 87040; 93005; 93010; 93306; 94660; 94760; 96374; 99283; A4216; J0456; J0692; J1644; J2060; J7050; J7620; Q0162; Q4081

== ENCOUNTER 2017-12-03 12:09 | Outpatient (CLI) | payer MEDICARE, BC | END 2017-12-03 12:10 | disposition home or self-care (01) | LOC: BICRAD 12:09 | PROVIDERS: ATTEND Internal Medicine | DX: J18.9 Pneumonia, unspecified organism (principal); I70.0 Atherosclerosis of aorta | CPT/HCPCS: 71046 ==

== ENCOUNTER 2017-12-10 11:21 | Day surgery (SDC) | payer MEDICARE, BC ==
[2017-12-10] MEDS ORDERED: Acetaminophen 500 MG TAB PO SCH (12:45)
[2017-12-10] MEDS ORDERED: diphenhydrAMINE 25 MG CAP PO SCH (12:45)
[2017-12-10 18:16] VITALS: TEMP 98.2
[2017-12-10 20:17] VITALS: BP 177/87
== END 2017-12-10 20:24 | disposition home or self-care (01) ==
LOC: ONC/OP 11:21
PROVIDERS: ATTEND Internal Medicine Medical Oncology
DX: D64.9 Anemia, unspecified (principal); D69.6 Thrombocytopenia, unspecified
CPT/HCPCS: 36430; 86850; 86900; 86901; P9016; P9035

== ENCOUNTER 2017-12-14 11:04 | Day surgery (SDC) | payer MEDICARE, BC ==
[2017-12-14] MEDS ORDERED: diphenhydrAMINE 25 MG CAP PO SCH (12:00)
[2017-12-14] MEDS ORDERED: Acetaminophen 500 MG TAB PO SCH (12:00)
[2017-12-14 19:07] LABS: Hemoglobin 8.6 g/dL (14.0-18.0); Platelet Count 18 thou/uL (130-400)
[2017-12-14 22:50] VITALS: BP 175/84; TEMP 98.4
== END 2017-12-14 23:11 | disposition home or self-care (01) ==
LOC: ONC/OP 11:04 → ONC 11:07 → ONC/OP 23:11
PROVIDERS: ATTEND Internal Medicine Medical Oncology
DX: D64.9 Anemia, unspecified (principal); D69.6 Thrombocytopenia, unspecified
CPT/HCPCS: 36415; 36430; 85014; 85018; 85049; 86850; 86900; 86901; P9016; P9035

== ENCOUNTER 2018-01-10 10:08 | Day surgery (SDC) | payer MEDICARE, BC ==
[2018-01-10] MEDS ORDERED: Sodium Chloride 0.9% 30 ML ONE (10:20)
[2018-01-10] MEDS ORDERED: Acetaminophen 500 MG TAB PO SCH (11:15)
[2018-01-10] MEDS ORDERED: diphenhydrAMINE 25 MG CAP PO SCH (11:15)
[2018-01-10 16:31] VITALS: BP 131/71; TEMP 97.8
== END 2018-01-10 16:37 | disposition home or self-care (01) ==
LOC: ONC/OP 10:08
PROVIDERS: ATTEND Internal Medicine Medical Oncology
DX: D69.6 Thrombocytopenia, unspecified (principal)
CPT/HCPCS: 36415; 36430; 86900; 86901; A4216; P9035

== ENCOUNTER → 2018-02-09 | Day surgery (SDC) | payer MEDICARE, BC ==
[~2018-02-09] MED LIST: Acetaminophen 500 MG TAB PO SCH; diphenhydrAMINE 25 MG CAP PO SCH
[2018-02-09 16:31] VITALS: TEMP 98.4
[2018-02-09 18:44] LABS: Mean Corpuscular HGB CONC 29.9 g/dL (32.0-36.0); Mean Corpuscular Hemoglobin 28.1 pg (27.0-31.0); Mean Corpuscular Volume 93.8 fL (78.0-98.0); Mean Platelet Volume 16.5 fL (7.4-10.4); Platelet Count 20 thou/uL (130-400); RBC Distribution Width 21.8 % (11.5-14.5); Red Blood Cell (RBC) Count 3.56 mill/uL (4.70-6.10); White Blood Cell (WBC) Count 6.4 thou/uL (4.8-10.8)
[2018-02-09 19:11] VITALS: BP 130/72
[2018-02-09 19:20] LABS: #Basophils 0.1 thou/uL (0.0-0.2); #Eosinphils 0.2 thou/uL (0.0-0.7); #Lymphocytes 0.9 thou/uL (1.20-3.40); #Monocytes 0.3 thou/uL (0.11-0.59); #Neutrophils 4.9 thou/uL (1.40-6.50); %Basophils 1.9 % (0.0-1.0); %Eosinophils 2.8 % (0.0-10.0); %Lymphocytes 14.4 % (21.0-51.0); %Monocytes 4.9 % (0.0-10.0); Anisocytosis SLIGHT = 6-15 cells (100X) (0-5/hpf); Hypochromia SLIGHT = 6-15 cells (100X) (0-5/hpf); MDiff Complete? YES; Ovalocytes SLIGHT = 2-5 cells (100X) (0-1/hpf); PLT Morphology Comment Appears Decreased; Tear Drops SLIGHT = 2-5 cells (100X) (0-1/hpf)
== END ==
LOC: SDC/OP 13:45 → 2SW 14:03 → UNDOADMOB 14:03 → UNDODISOB 19:04
PROVIDERS: ATTEND Internal Medicine Medical Oncology
PROC: 30233R1 Transfusion of Nonautologous Platelets into Peripheral Vein, Percutaneous Approach (ICD-10-PCS; principal; 2018-02-09)
DX: D64.9 Anemia, unspecified (principal); D69.6 Thrombocytopenia, unspecified; Z79.82 Long term (current) use of aspirin; Z79.899 Other long term (current) drug therapy; Z88.1 Allergy status to other antibiotic agents
CPT/HCPCS: 36430; 85025; 86850; 86900; 86901; P9035; 36415

== ENCOUNTER 2018-05-30 13:19 | Outpatient (CLI) | payer MEDICARE, BC ==
--- NOTE | 2018-05-30 14:58 | RAD ---
PA AND LATERAL CHEST: History: Dyspnea. FINDINGS: Comparison is made with exam of 12-03-17. The heart size is normal. The aorta is tortuous. The lungs are well expanded without focal areas of c onsolidation, pneumothorax or pleural effusions. No acute osseous abnormalities are seen. Mild chroni c changes appear stable. IMPRESSION: No radiographic evidence of acute cardiopulmonary process. POS: [facility]
== END 2018-05-30 13:20 | disposition home or self-care (01) ==
LOC: RAD 13:19
PROVIDERS: ATTEND Internal Medicine Critical Care Medicine
DX: R06.00 Dyspnea, unspecified (principal)
CPT/HCPCS: 71046

== ENCOUNTER 2018-07-28 14:46 | Inpatient (IN) | payer MEDICARE, BC ==
[2018-07-28] MEDS ORDERED: Aspirin Chewable 81 MG TAB ONE (15:41)
[2018-07-28 15:42] LABS: Hemoglobin 11.5 g/dL (14.0-18.0); Mean Corpuscular HGB CONC 32.7 g/dL (32.0-36.0); Mean Corpuscular Hemoglobin 28.8 pg (27.0-31.0); Mean Platelet Volume 9.5 fL (7.4-10.4); Platelet Count 212 thou/uL (130-400); RBC Distribution Width 19.3 % (11.5-14.5)
[2018-07-28 15:44] LABS: ALT (SGPT) 9 U/L (8-55); AST (SGOT) 16 U/L (5-34); Albumin 4.1 g/dL (3.4-4.8); Alkaline Phosphatase 59 U/L (40-150); Anion Gap 13 mmol/L (10-20); BUN (Urea Nitrogen) 36 mg/dL (8.4-25.7); Bilirubin, Total 0.5 mg/dL (0.2-1.2); Calc. Creatinine Clearance 0 mL/min (70-130); Carbon Dioxide 24 mmol/L (23-31); Chloride 105 mmol/L (98-107); Estimated GFR-MDRD 28; Globulin 2.8 g/dL (2.4-3.5); Glucose 107 mg/dL (83-110); Lipase 21 U/L (8-78); Potassium 4.8 mmol/L (3.5-5.1); Protein, Total 6.9 g/dL (5.8-8.1); Sodium 137 mmol/L (136-145)
[2018-07-28 15:54] LABS: Anisocytosis SLIGHT = 6-15 cells (100X) (0-5/hpf); Band 7 % (5-11); Crenated RBC SLIGHT = 1-5 cells (100X) (None Seen); Elliptocytes SLIGHT = 2-5 cells (100X) (0-1/hpf); Eosinophils 3 % (0-10); Hypochromia SLIGHT = 6-15 cells (100X) (0-5/hpf); Lymphocytes 6 % (21-51); MDiff Complete? YES; Macrocytosis SLIGHT = 6-15 cells (100X) (0-5/hpf); Microcytosis SLIGHT = 6-15 cells (100X) (0-5/hpf); Monocytes 6 % (0-10); Neutrophil 71 % (42-75); Nucleated RBC 7 % (0); Platelet Morphology Comment Appears Adequate; Polychromasia SLIGHT = 2-3 cells (100X) (0-2/hpf); Reflex for Review?? NO; Target Cells SLIGHT = 2-5 cells (100X) (0-1/hpf); White Blood Cell (WBC) Count 7.6 thou/uL (4.8-10.8)
[2018-07-28 16:01] LABS: CKMB 1.5 ng/mL (0-6.6)
--- NOTE | 2018-07-28 16:20 | RAD ---
PORTABLE CHEST 1 VIEW: Date: 07/28/18 Time: 1547 hours HISTORY: Shortness of breath. FINDINGS: Comparison made with exam of 08/08/17. The heart size is normal. The lungs are well expanded without focal areas of consolidation, pneumotho races, or pleural effusions. IMPRESSION: No acute process. POS: [facility]
[2018-07-28] MEDS ORDERED: Enoxaparin Sodium 60 MG/0.6 ML SYRINGE ONE (16:59)
[2018-07-28 18:52] VITALS: BMI 20.1
[2018-07-28] MEDS: Sodium Chloride 0.9% 1,000 ML IV SCH (23:00)
[2018-07-28 23:02] LABS: Troponin I 0.063 ng/mL (< 0.028)
[2018-07-29] MEDS ORDERED: Acetaminophen 325 MG TAB PO PRN (03:35)
[2018-07-29] MEDS ORDERED: Ondansetron PF 4 MG/2 ML Vial IVP PRN (03:35)
[2018-07-29] MEDS ORDERED: Ondansetron ODT 4 MG TAB PO PRN (03:35)
[2018-07-29] MEDS ORDERED: Aspirin 81 mg Enteric Coated Tablet PO SCH (03:45)
[2018-07-29] MEDS ORDERED: PATIROMER CALCIUM SORBITEX PO SCH (03:45)
--- NOTE | 2018-07-29 06:27 | HP ---
PRIMARY CARE DOCTOR: Dr. Trent Guardado. CODE STATUS: Full code. TIME OF EVALUATION: 10:50 p.m. CHIEF COMPLAINT: Shortness of breath. HISTORY OF PRESENT ILLNESS: This is a 77-year-old male patient with past medical history of hypertension and AAA status post surgery, came to the hospital after having shortness of breath for the past 3 days. Symptoms had been present on and off the past few months. The patient's reported the patient has been diagnosed with myelofibrosis been followed by Dr. Clark and has received treatment for it. The patient also reported he has been having some issues with low blood pressure and that has happened in the past. Usually, the patient has previous admissions due to dehydration. The patient has received some fluids and has been sent home. Symptoms are reported as severe. No clear triggers. No alleviating factors. REVIEW OF SYSTEMS: CONSTITUTIONAL: No fever or chills. The patient did report generalized weakness. RESPIRATORY: No cough or sputum production. Shortness of breath was present for the past 3 days. CARDIOVASCULAR: The patient also reported some chest pain. No palpitation. GASTROINTESTINAL: No nausea, vomiting, diarrhea, or abdominal pain. PUMPER GAGER: No dizziness, headache, or feeling lightheaded. GENITOURINARY: No burning on urination. EXTREMITIES: No leg swelling. All other systems were reviewed and negative except for the findings mentioned above. PAST MEDICAL HISTORY: As mentioned in HPI. Diverticulitis, basal cell carcinoma , polycythemia vera, COPD, acute kidney failure with dehydration in September 2017, myelofibrosis. PAST SURGICAL HISTORY: Left iliac aneurysm, abdominal hernia with mesh repair, bilateral cataract removal, cholecystectomy, and L4 back surgery x2. PSYCHIATRIC HISTORY: No previous psych history. FAMILY HISTORY: Reviewed and non contributory for current presentation. SOCIAL HISTORY: No alcohol. No drugs. The patient is a former tobacco user. Smokes cigarettes. The patient quit smoking less than 10 years ago. KNOWN ALLERGIES: Cipro and levofloxacin. REPORTED MEDICATIONS: 1. Centrum Silver. 2. Lansoprazole. 3. Terazosin. 4. Aspirin 81. 5. Icaps. 6. Hydroxyurea. 7. Vitamin D3. 8. Caffeine. PHYSICAL EXAMINATION: VITAL SIGNS: Vital signs on presentation; blood pressure 88/66 with heart rate 100, respiratory rate was 20, temperature 98.1. The blood pressure recovered after some hydration. GENERAL APPEARANCE: The patient is alert and oriented, in no acute distress. HEENT: Eyes, normal conjunctivae. Moist oral mucosa. Anicteric. No JVD. RESPIRATORY: Bilateral air entry. No rales. No wheezes. Symmetric expansion. CARDIOVASCULAR: The patient has some tachyarrhythmias with irregular rhythm. No murmurs. No gallop. No edema. ABDOMEN: Soft. Normal bowel sounds. MUSCULOSKELETAL: Baseline range of motion and strength. No tenderness. SKIN: Warm, intact. No pallor. No rash. No redness. Peripheral pulses are present. Capillary refill seems to intact. NEURO: No evidence of any new focal weakness. Baseline speech. Cranial nerves seems to be intact. PSYCH: The patient is in good mood. No anxiety. Optimal judgment. IMAGING STUDIES: EKG was reviewed. The patient has atrial fibrillation with controlled ventricular response, RBBB. Chest x-ray was reviewed. The patient has no acute process. LABORATORY DATA: Labs were reviewed. The patient has white count 7.6, hemoglobin 11.5, MCV 88, platelet count 212. D-dimer 1.0. Sodium 137, potassium 4.8, chloride 105, carbon dioxide 24, anion gap 13, BUN 36, creatinine 2.32, GFR 28, glucose 107. AST and LFTs were normal. Troponin initial one was 0.029, the second one was 0.050, the third one was 0.063. Beta natriuretic peptide 194.5. Serum total protein 6.9 , albumin 4.1, lipase 21. ASSESSMENT AND PLAN: The patient has been placed in the hospital with following medical problems: 1. Hypotension on presentation, unclear etiology, could be related to weakness. The patient has recovered after hydration. Reportedly, the patient had the same problem long time ago, multiple times had been with hypotension and dehydration in the hospital. Since there is a risk for pulmonary embolism, the patient has a positive D-dimer. V/Q scan will be planned to obtain during admission. 2. Mildly elevated troponins, could be non-ST elevation myocardial infarction type 2, we will follow. We will consult Cardiology for any further recommendations. 3. Deep venous thrombosis prophylaxis. Job ID: [id number] [facility]
[2018-07-29] MEDS: Saccharomyces boulardii 250 MG CAP PO SCH (07:40)
[2018-07-29] MEDS ORDERED: Enoxaparin Sodium 40 MG/0.4 ML SYRINGE SC SCH (09:00)
--- NOTE | 2018-07-29 09:15 | PDOC.PN ---
- Subjective Encounter Start Date: 07/29/18 Encounter Start Time: 10:00 Subjective: Patient without current chest pain or SOB. Jackson a little dizzy on standing -: earlier. - Objective Resuscitation Status - Order Detail: 07/29/18 03:35 Resuscitation Status Routine Resuscitation Status: FULL: Full Resuscitation MAR Reviewed: Yes Vital Signs & Weight: Vital Signs (12 hours) Temp Pulse Resp BP Pulse Ox 07/29/18 07:34 97.6 F 91 18 114/82 95 07/29/18 04:45 98.2 F 74 18 97/68 98 Weight Weight 152 lb 8 oz I&O: 07/28/18 07/29/18 07/30/18 06:59 06:59 06:59 Intake Total 450 Balance 450 Result Diagrams: 07/28/18 15:20 07/29/18 10:01 Phys Exam - Physical Examination Constitutional: NAD HEENT: moist MMs Respiratory: no wheezing, no rales, no rhonchi Cardiovascular: no significant murmur, irregular Gastrointestinal: soft, non-tender Musculoskeletal: no edema Neurological: non-focal Psychiatric: normal affect, A&O x 3 Dx/Plan (1) Hypotension Status: Resolved Comment: likely due to dehydration, resolved with fluids in the ER (2) Acute worsening of stage 3 chronic kidney disease Code(s): N18.3 - CHRONIC KIDNEY DISEASE, STAGE 3 (MODERATE) Status: Acute Comment: giving fluids (3) NSTEMI (non-ST elevated myocardial infarction) Code(s): I21.4 - NON-ST ELEVATION (NSTEMI) MYOCARDIAL INFARCTION Status: Acute Comment: indeterminate troponins, new, possibly troponin leak due to hypotension, Cardiology consulted, ECHO last year with EF 65-70%, chronically elevated BNP with edema, suspect chronic diastolic CHF though not currently exacerbated (4) Diverticulosis of colon Code(s): K57.30 - DVRTCLOS OF LG INT W/O PERFORATION OR ABSCESS W/O BLEEDING Status: Chronic (5) GERD (gastroesophageal reflux disease) Code(s): K21.9 - GASTRO-ESOPHAGEAL REFLUX DISEASE WITHOUT ESOPHAGITIS Status: Chronic (6) H/O abdominal aortic aneurysm repair Code(s): Z98.890 - OTHER SPECIFIED POSTPROCEDURAL STATES Status: Chronic (7) Hypertension Code(s): I10 - ESSENTIAL (PRIMARY) HYPERTENSION Status: Chronic Qualifiers: (8) Polycythemia vera Code(s): D45 - POLYCYTHEMIA VERA Status: Chronic Comment: H/H mildly low now , has more recent hx of myelofibrosis, stable on current medications - Plan cont current plan of care, PT/OT, DVT proph w/lovenox Dr Vallecillo has seen the patient, plans for Lovenox and stress test. * . - Discharge Day Encounter end time: 10:10
[2018-07-29 10:34] LABS: Anion Gap 11 mmol/L (10-20); BUN (Urea Nitrogen) 32 mg/dL (8.4-25.7); Calc. Creatinine Clearance 35 mL/min (70-130); Calcium 8.6 mg/dL (7.8-10.44); Carbon Dioxide 21 mmol/L (23-31); Chloride 111 mmol/L (98-107); Estimated GFR-MDRD 37; Glucose 100 mg/dL (83-110); Potassium 4.4 mmol/L (3.5-5.1); Sodium 139 mmol/L (136-145)
[2018-07-29] MEDS ORDERED: Dronedarone HCl 400 MG TAB PO SCH (11:45)
[2018-07-29] MEDS: Sodium Chloride 0.9% 1,000 ML IV SCH (13:44)
--- NOTE | 2018-07-29 14:48 | CON ---
DATE OF CONSULTATION: HISTORY: Henrik Crews is a 77-year-old white male, admitted with increased shortness of breath. His usual virtual office assistant is Dr. Cody Beltre. He has some degree of dementia and has trouble recalling specifics and his daughter tries to fill- in with history. He has never had any specific type of cardiac problem, although he has had vascular disease. He has had dyspnea on exertion for many years and a pulmonary function test almost six years ago revealed an FEV1 of 56% of predicted. Apparently, he has had a more recent PFT performed in Dr. Richmond's office. It sounds that the main reason that he was brought to the hospital because of blood pressure in the 70s and 80s at home. He does complain of lightheadedness and dizziness. 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 This does not seem to be associated with his exertional dyspnea. When he came to the emergency room, he was found to be in atrial fibrillation. In looking back at EKG here in November 2017, he was in normal sinus rhythm. Also an echocardiogram in November 2017 revealed ejection fraction of 65% to 70% with mild valvular regurgitations and aortic sclerosis. Mr. Crews denies any history of palpitations. He has been given intravenous hydration here and states that he is not as weak and dizzy. 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 He has had severe thrombocytopenia with platelet count as low as 15,000 in February of 2018. Currently, he is on procrit and Jakafi. He has history of diverticulitis, COPD, chronic kidney disease, peripheral vascular disease. He also had a gastrointestinal bleed in November of 2016 after a polypectomy. PAST SURGICAL HISTORY: Abdominal aortic aneurysm repair, repair of left iliac aneurysm, abdominal hernia repair, cataract surgery, cholecystectomy, two back surgeries. HOME MEDICATIONS: 1. Aspirin 81 daily. 2. Probiotic one capsule daily. 3. Prevacid 30 daily. 4. Veltassa one packet as directed. 5. Terazosin 10 mg a.c. 6. Jakafi 10 mg b.i.d. ALLERGIES: CIPRO AND LEVAQUIN. SOCIAL HISTORY: Smoked one pack per day, but stopped about eight or nine years ago. He does not drink alcohol. FAMILY HISTORY: Mother of myocardial infarction. REVIEW OF SYSTEMS: A 12-point review of systems is otherwise unremarkable. PHYSICAL EXAMINATION: VITAL SIGNS: Blood pressure 114/82, pulse 91 and irregularly irregular. HEENT: PERRL. NECK: Supple. CHEST: Clear. CARDIAC: S1 and S2 normal without any S3 or S4. There is a one-2/6 systolic murmur heard left best in the aortic area. Carotid upstrokes normal without bruits. ABDOMEN: Normal bowel sounds without tenderness or organomegaly. EXTREMITIES: Revealed no clubbing, cyanosis, or edema. NEUROLOGICAL: Grossly intact. SKIN: Warm and dry. LABORATORY DATA: EKG revealed atrial fibrillation with a rate of 96 per minute with right bundle-branch block, evidence for possible septal infarction. Hemoglobin 11.5, hematocrit 35.2, white count 7600, platelets 212,000. D-dimer 1.02 (V/Q scan is pending). Sodium 139, potassium 4.4, chloride 111, carbon dioxide 21, BUN 32 , creatinine 1.79. BNP 194.5, troponin I 0.063. IMPRESSION: 1. Hypotension, which certainly could be due to development of atrial fibrillation. 2. History of exertional chest pain and minimally elevated troponin Is. This certainly could be due to demand ischemia or his renal insufficiency; however, he had a totally negative troponin Is in November 2017 with a somewhat worse creatinine. 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 Therefore, Lexiscan Cardiolite test will be performed. 3. Chronic obstructive pulmonary disease of uncertain severity. Request will be made for pulmonary function test from Dr. Richmond's office. 4. Vascular disease with repair of abdominal aortic aneurysm as well as left iliac artery aneurysm. 5. Former smoker. 6. Positive family history. 7. Chronic kidney disease. 8. Myelodysplastic syndrome. PLAN: The patient's creatinine has improved to 1.79 with hydration. He will be started on Lovenox 1 mg/kg b.i.d. and eventually would need to be transitioned over to p.o. oral anticoagulants; however, at times with his myelodysplastic syndrome , he is very thrombocytopenic. Consultation we had with Oncology in regard to the need for long-term anticoagulation. Echocardiogram will be repeated to reassess left ventricular function. Miguel Aiscan Cardiolite will be ordered. He will also be placed on Multaq 400 mg b.i.d. in anticipation of possible cardioversion in the next several days. Job ID: [id number] [facility]
--- NOTE | 2018-07-29 15:12 | NM ---
VQ SCAN: 07/29/18 HISTORY: Shortness of breath. TECHNIQUE: A ventilation perfusion scan was performed using 12.8 millicuries Xenon 133 for ventilation scan foll owed by the intravenous administration of 6.1 millicuries technetium 99m-MAA for the perfusion scan. FINDINGS: Correlation is made with the chest x-ray from previous day. There is mild inhomogeneity of tracer distribution on the perfusion scan bilaterally. No pleural base d wedge shaped mismatched segmental or subsegmental perfusion defects are seen. There is tracer reten tion on the washout phase of the ventilation study. IMPRESSION: Low probability for pulmonary embolism. POS: [facility]
--- NOTE | 2018-07-29 18:05 | CON ---
DATE OF CONSULTATION: REASON FOR CONSULTATION: Myelofibrosis. HISTORY OF PRESENT ILLNESS: Mr. Akhtar is a pleasant 77-year-old gentleman with complicated hematological history, who presented to the emergency room with progressive shortness of breath over the last several weeks. He was noted to be in atrial fibrillation. He was admitted for further workup. Mr. Akhtar was diagnosed in 2010 with polycythemia vera. He was treated with hydroxyurea and most recently anagrelide in 11/2017. 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 He has been on Jakafi for the last several months with significant improvement in his counts. The patient saw Dr. Clark last on 07/26. He complained of increasing shortness of breath on exertion at that time. CBC was stable. The patient had a V/Q scan this morning, which showed a low probability of pulmonary embolism. He does have a chronic kidney disease with an elevated creatinine on this admission, that has improved with IV hydration. PAST MEDICAL HISTORY: 1. Myeloproliferative disorder. 2. Myelofibrosis. 3. Benign prostatic hypertrophy. 4. Hypertension. 5. Diverticulosis with GI bleed. 6. GI reflux. 7. COPD. 8. Hypercholesterolemia. PAST SURGICAL HISTORY: 1. Polypectomy. 2. Inguinal hernia repair. 3. Iliac stent placement. 4. Aortic aneurysm repair. 5. Lumbar laminectomy. ALLERGIES: TO QUINOLONES. HOME MEDICATIONS: 1. Jakafi 20 mg alternating with 30 mg daily. 2. Lansoprazole 30 mg daily. 3. Terazosin daily. 4. Veltassa daily. 5. Vitamin D3 daily. FAMILY HISTORY: Has a sister with MPS. SOCIAL HISTORY: He is , lives with his spouse. Former smoker. No alcohol or illicit drug use. REVIEW OF SYSTEMS: A 10-point review of systems is negative except for noted in HPI. PHYSICAL EXAMINATION: VITAL SIGNS: Temperature is 97.8, pulse is 86, respiratory rate 16, BP is 108/69. He is 95% on room air. GENERAL: Well-developed, well-nourished male, in no acute distress. HEENT: Normocephalic and atraumatic. Pupils equal and reactive to light. NECK: Supple. CV: Irregular rate and rhythm. He does have a 3/6 murmur. LUNGS: Clear to auscultation. ABDOMEN: Soft and nontender. Bowel sounds are positive. EXTREMITIES: No clubbing, cyanosis, or edema. SKIN: No rash. HEMATOLOGIC: No petechiae or purpura. NEUROLOGIC: Nonfocal. PSYCHIATRIC: The patient is alert, oriented, and appropriate. PERTINENT LABS AND X-RAYS: Current WBCs are 7.6, hemoglobin 11.5, hematocrit 35.2, and platelet count is 212,000. He has 71% neutrophils, 7% bands, and 6% lymphocytes. Sodium is 139, potassium 4.4, chloride 111, CO2 is 21, BUN is 32, creatinine 1.79, and calcium is 9. Total bilirubin is 0.5, AST 16, ALT is 9, and alkaline phosphatase is 59. CK-MB is 1.5 and troponin 0.063. Serum total protein 6.9, albumin 4.1, and globulin 2.8. Lipase 21. Radiology per HPI. ASSESSMENT: 1. Myelofibrosis with stable CBCs, on Jakafi. 2. Atrial fibrillation. 3. Chronic obstructive pulmonary disease. 4. Chronic kidney disease 3. DISCUSSION: The patient's Jakafi should be continued at its current dosing of 20 mg rotating with 30 mg daily. He does receive Procrit in the outpatient setting for hemoglobin less than 11. Case was discussed with Dr. Clark and Dr. Vallecillo. The patient will need anticoagulation on discharge. Eliquis should not be a problem. The patient will have routine labs in our clinic and we will monitor his platelet count and hold anticoagulation if it drops less than 50. Thank you for the consult. We will follow along with his hospitalization. Job ID: [id number]
[2018-07-29] MEDS: Dronedarone HCl 400 MG TAB PO SCH (18:22)
[2018-07-29] MEDS: Enoxaparin Sodium 80 MG/0.8 ML SYRINGE SC SCH (22:07)
[2018-07-30 05:21] LABS: Anion Gap 10 mmol/L (10-20); BUN (Urea Nitrogen) 27 mg/dL (8.4-25.7); Calc. Creatinine Clearance 35 mL/min (70-130); Calcium 8.5 mg/dL (7.8-10.44); Carbon Dioxide 23 mmol/L (23-31); Chloride 111 mmol/L (98-107); Estimated GFR-MDRD 38; Glucose 85 mg/dL (83-110); Potassium 4.2 mmol/L (3.5-5.1); Sodium 140 mmol/L (136-145)
[2018-07-30 05:46] LABS: Anisocytosis SLIGHT = 6-15 cells (100X) (0-5/hpf); Band 9 % (5-11); Elliptocytes SLIGHT = 2-5 cells (100X) (0-1/hpf); Eosinophils 7 % (0-10); Hemoglobin 9.4 g/dL (14.0-18.0); Lymphocytes 20 % (21-51); MDiff Complete? YES; Mean Corpuscular HGB CONC 31.6 g/dL (32.0-36.0); Mean Corpuscular Hemoglobin 29.4 pg (27.0-31.0); Mean Corpuscular Volume 92.8 fL (78.0-98.0); Mean Platelet Volume 10.9 fL (7.4-10.4); Metamyelocyte 2 % (0-0); Monocytes 11 % (0-10); Myelocyte 2 % (0-0); Neutrophil 49 % (42-75); Nucleated RBC 4 % (0); Platelet Count 146 thou/uL (130-400); Platelet Morphology Comment Appears Adequate; Polychromasia SLIGHT = 2-3 cells (100X) (0-2/hpf); RBC Distribution Width 19.1 % (11.5-14.5); Red Blood Cell (RBC) Count 3.21 mill/uL (4.70-6.10); White Blood Cell (WBC) Count 5.8 thou/uL (4.8-10.8)
--- NOTE | 2018-07-30 08:23 | PDOC.PN ---
- Subjective Encounter Start Date: 07/30/18 Encounter Start Time: 10:20 Subjective: Patient without chest pain. Still with some dizziness on standing. BP -: elevated this morning. - Objective Resuscitation Status - Order Detail: 07/29/18 03:35 Resuscitation Status Routine Resuscitation Status: FULL: Full Resuscitation MAR Reviewed: Yes Vital Signs & Weight: Vital Signs (12 hours) Temp Pulse Resp BP Pulse Ox 07/30/18 07:54 97.7 F 76 18 167/98 H 95 07/30/18 04:00 98 F 76 16 138/84 97 07/30/18 00:00 97.4 F L 77 16 132/84 96 Weight Weight 149 lb 12.8 oz I&O: 07/29/18 07/30/18 07/31/18 06:59 06:59 06:59 Intake Total 1275 Output Total 700 Balance 575 Result Diagrams: 07/30/18 04:35 07/30/18 04:35 EKG Reviewed by me: Yes (Sinus rhythm on telemetry) Phys Exam - Physical Examination Constitutional: NAD HEENT: moist MMs Respiratory: no wheezing, no rales, no rhonchi Cardiovascular: RRR, no significant murmur Gastrointestinal: soft, positive bowel sounds Neurological: non-focal, moves all 4 limbs Psychiatric: normal affect, A&O x 3 Dx/Plan (1) Hypotension Status: Resolved Comment: likely due to dehydration, resolved with fluids in the ER (2) Acute worsening of stage 3 chronic kidney disease Code(s): N18.3 - CHRONIC KIDNEY DISEASE, STAGE 3 (MODERATE) Status: Acute Comment: giving fluids (3) NSTEMI (non-ST elevated myocardial infarction) Code(s): I21.4 - NON-ST ELEVATION (NSTEMI) MYOCARDIAL INFARCTION Status: Acute Comment: indeterminate troponins, new, possibly troponin leak due to hypotension, Cardiology consulted, ECHO last year with EF 65-70%, chronically elevated BNP with edema, suspect chronic diastolic CHF though not currently exacerbated (4) Diverticulosis of colon Code(s): K57.30 - DVRTCLOS OF LG INT W/O PERFORATION OR ABSCESS W/O BLEEDING Status: Chronic (5) GERD (gastroesophageal reflux disease) Code(s): K21.9 - GASTRO-ESOPHAGEAL REFLUX DISEASE WITHOUT ESOPHAGITIS Status: Chronic (6) H/O abdominal aortic aneurysm repair Code(s): Z98.890 - OTHER SPECIFIED POSTPROCEDURAL STATES Status: Chronic (7) Hypertension Code(s): I10 - ESSENTIAL (PRIMARY) HYPERTENSION Status: Chronic Qualifiers: Comment: uncontrolled today, will give prn BP meds (8) Polycythemia vera Code(s): D45 - POLYCYTHEMIA VERA Status: Chronic Comment: H/H mildly low now , has more recent hx of myelofibrosis, stable on current medications (9) Atrial fibrillation Code(s): I48.91 - UNSPECIFIED ATRIAL FIBRILLATION Status: Acute Qualifiers: Atrial fibrillation type: paroxysmal Qualified Code(s): I48.0 - Paroxysmal atrial fibrillation Comment: now back in SR, on Lovenox, will convert to Eliquis on discharge - Plan cont current plan of care, PT/OT, DVT proph w/lovenox stress test and follow plan per Dr. Vallecillo's recs * . - Discharge Day Encounter end time: 10:30
[2018-07-30] MEDS: Enoxaparin Sodium 80 MG/0.8 ML SYRINGE SC SCH ×2 (09:29→20:18)
[2018-07-30] MEDS: Saccharomyces boulardii 250 MG CAP PO SCH (09:32)
[2018-07-30] MEDS: Dronedarone HCl 400 MG TAB PO SCH ×2 (09:32→16:42)
[2018-07-30] MEDS: Sodium Chloride 0.9% 1,000 ML IV SCH ×2 (09:33→21:59)
[2018-07-30] MEDS: Terazosin HCl 5 MG CAP PO SCH (09:33)
[2018-07-30] MEDS ORDERED: hydrALAZINE 20 MG/ML VIAL SLOW IVP PRN (10:31)
[2018-07-30] MEDS ORDERED: Aspirin 81 mg Enteric Coated Tablet PO SCH (15:30)
[2018-07-30] MEDS ORDERED: RUXOLITINIB PHOSPHATE 10 MG PO SCH (21:00)
[2018-07-31] MEDS ORDERED: Aspirin 81 mg Enteric Coated Tablet PO SCH (09:00)
[2018-07-31] MEDS ORDERED: RUXOLITINIB PHOSPHATE 10 MG PO SCH (09:00)
--- NOTE | 2018-07-31 09:04 | PDOC.PN ---
- Subjective Encounter Start Date: 07/31/18 Encounter Start Time: 11:55 Subjective: Patient without chest pain. No SOB. Ambulating well. Stress test -: done this morning and normal. - Objective Resuscitation Status - Order Detail: 07/29/18 03:35 Resuscitation Status Routine Resuscitation Status: FULL: Full Resuscitation MAR Reviewed: Yes Vital Signs & Weight: Vital Signs (12 hours) Temp Pulse Resp BP Pulse Ox 07/31/18 07:44 98 F 77 16 158/94 H 95 07/31/18 04:00 97.6 F 74 18 176/96 H 95 07/31/18 00:00 98.5 F 73 18 169/93 H 95 Weight Weight 149 lb 12.8 oz I&O: 07/30/18 07/31/18 08/01/18 06:59 06:59 06:59 Intake Total 1275 800 Output Total 700 1750 Balance 575 -950 Result Diagrams: 07/30/18 04:35 07/30/18 04:35 Phys Exam - Physical Examination Constitutional: NAD HEENT: moist MMs Respiratory: no wheezing, no rales, no rhonchi Cardiovascular: RRR Gastrointestinal: soft, non-tender, positive bowel sounds Neurological: non-focal, moves all 4 limbs Psychiatric: normal affect, A&O x 3 Dx/Plan (1) Hypotension Status: Resolved Comment: likely due to dehydration, resolved with fluids in the ER (2) Acute worsening of stage 3 chronic kidney disease Code(s): N18.3 - CHRONIC KIDNEY DISEASE, STAGE 3 (MODERATE) Status: Acute Comment: resolved to baseline (3) NSTEMI (non-ST elevated myocardial infarction) Code(s): I21.4 - NON-ST ELEVATION (NSTEMI) MYOCARDIAL INFARCTION Status: Acute Comment: indeterminate troponins, new, possibly troponin leak due to hypotension, Cardiology consulted, ECHO last year with EF 65-70%, chronically elevated BNP with edema, suspect chronic diastolic CHF though not currently exacerbated (4) Diverticulosis of colon Code(s): K57.30 - DVRTCLOS OF LG INT W/O PERFORATION OR ABSCESS W/O BLEEDING Status: Chronic (5) GERD (gastroesophageal reflux disease) Code(s): K21.9 - GASTRO-ESOPHAGEAL REFLUX DISEASE WITHOUT ESOPHAGITIS Status: Chronic (6) H/O abdominal aortic aneurysm repair Code(s): Z98.890 - OTHER SPECIFIED POSTPROCEDURAL STATES Status: Chronic (7) Hypertension Code(s): I10 - ESSENTIAL (PRIMARY) HYPERTENSION Status: Chronic Qualifiers: Comment: uncontrolled today, will give prn BP meds (8) Polycythemia vera Code(s): D45 - POLYCYTHEMIA VERA Status: Chronic Comment: H/H mildly low now , has more recent hx of myelofibrosis, stable on current medications (9) Atrial fibrillation Code(s): I48.91 - UNSPECIFIED ATRIAL FIBRILLATION Status: Acute Qualifiers: Atrial fibrillation type: paroxysmal Qualified Code(s): I48.0 - Paroxysmal atrial fibrillation Comment: now back in SR, on Lovenox, will convert to Eliquis on discharge - Plan cont current plan of care, PT/OT, DVT proph w/lovenox stress test negative, will d/c home on Eliquis if ok with -: Dr. Vallecillo. * . - Discharge Encounter end time: 12:05
[2018-07-31] MEDS ORDERED: Regadenoson 0.4 MG/5 ML SYRINGE ONE (09:37)
[2018-07-31] MEDS: Terazosin HCl 5 MG CAP PO SCH (11:44)
[2018-07-31] MEDS: Saccharomyces boulardii 250 MG CAP PO SCH (11:45)
[2018-07-31] MEDS: Dronedarone HCl 400 MG TAB PO SCH (11:45)
[2018-07-31] MEDS: Enoxaparin Sodium 80 MG/0.8 ML SYRINGE SC SCH (11:45)
[2018-07-31] MEDS: Sodium Chloride 0.9% 1,000 ML IV SCH (11:46)
[2018-07-31 12:01] VITALS: BP 178/94; TEMP 98.4
--- NOTE | 2018-07-31 14:34 | NM ---
RADIONUCLIDE STRESS AND REST MYOCARDIAL PERFUSION SCAN WITH CT ATTENUATION CORRECTION AND SPECT IMAGI NG: LEFT VENTRICULAR WALL MOTION EVALUATION AND EJECTION FRACTION: HISTORY: Chest pain. TECHNIQUE: Lexiscan protocol. FINDINGS: There is heterogeneous uptake of radiotracer throughout the left ventricular myocardium. No focal pe rfusion defect or reversibility are reliably demonstrated. QGS analysis of gated SPECT images shows no focal wall motion abnormalities. Ejection fraction is calculated at 70%. IMPRESSION: 1. Normal myocardial perfusion scan. 2. Normal left ventricular ejection fraction. POS: [facility]
--- NOTE | 2018-07-31 20:55 | DIS ---
DATE OF ADMISSION: 07/28/2018 DATE OF DISCHARGE: 07/31/2018 PRIMARY CARE PHYSICIAN: Dr. Trent Guardado. REASON FOR ADMISSION: Shortness of breath and hypotension. DIAGNOSES AT DISCHARGE: 1. Hypotension, resolved. 2. Acute on chronic kidney disease stage 3, back to baseline. 3. Demand ischemia with troponin leak from hypotension. 4. Paroxysmal atrial fibrillation. 5. Gastroesophageal reflux disease. 6. Hypertension. 7. Myelofibrosis developed after polycythemia vera. PROCEDURES: 1. V/Q scan showing low probability for pulmonary embolism. 2. Echocardiogram, report pending. 3. Nuclear medicine stress test showing ejection fraction of 70% and normal myocardial perfusion scan. CONSULTATIONS: 1. Cardiology, Dr. Vallecillo. 2. Heme/Oncology, Dr. Ambrose. SUMMARY OF HOSPITAL COURSE: This is a 77-year-old white male with a history of myelofibrosis, currently well controlled on medications as well as hypertension and atrial fibrillation previously, who came in with a complaint of shortness of breath. This has been getting worse over about 3 days, had also been having some low blood pressure issues in the past. He, here in the emergency room, was found to have a low blood pressure in the 80s systolic and given some IV fluids and that returned to normal. The patient was noted to have atrial fibrillation with control of ventricular response. In the emergency room, he had indeterminate troponins and he was admitted to the hospital. Dr. Vallecillo was consulted. He recommended a nuclear medicine stress test. This was normal, so the patient was started on Multaq for control of his atrial fibrillation. This eventually converted to normal sinus rhythm. He was anticoagulated with Lovenox during hospitalization and at discharge, he was converted to Eliquis. This was discussed with his Heme Oncology team and given the stability of his platelets recently on the current medications, this was thought to be safe for him to go home along with his baby aspirin. On the day of discharge, the patient was doing much better and was having just mild dizziness sometimes with ambulation but none of the shortness of breath he was having previously and no more hypotensive episodes. DISCHARGE MANAGEMENT: Discharged home. FOLLOWUP: Follow up with Dr. Vallecillo in 2 to [address] Guardado in 7 days. ACTIVITY: As tolerated. DIET: Healthy heart low-sodium diet. MEDICATIONS: 1. Eliquis 5 mg twice a day, 60 tablets dispensed. 2. Multaq 400 mg twice a day, 60 tablets dispensed. 3. Continue aspirin 81 mg daily. 4. Probiotic one capsule daily. 5. Prevacid 30 mg daily. 6. Veltassa one pack every other day as previously directed. 7. Jakafi 10 mg tablet, 3 tablets on every other day and 2 tablets the other days. 8. Hytrin 10 mg daily. The details of this discharge took 35 minutes. Job ID: [id number] [facility]
[2018-08-01] MEDS ORDERED: RUXOLITINIB PHOSPHATE 10 MG PO SCH (09:00)
--- NOTE | 2018-08-01 13:06 | PQF ---
CLINICAL DOCUMENTATION IMPROVEMENT CLARIFICATION FORM: ICD-10 Updated PLEASE DO AN ADDENDUM TO THE PROGRESS NOTE WITH ANY DOCUMENTATION UPDATES OR ADDITIONS AND CARRY THROUGH TO DC SUMMARY. THANK YOU. DATE: 08/01/2018 ATTN: Dr. Mo Please exercise your independent, professional judgment in responding to the clarification form. Clinical indicators are provided on the bottom of this form for your review Please check appropriate box(s): Conflicting documentation was noted in the Medical Record, please clarify if patient is being treated/monitored for: [ ] NSTEMI due to demand ischemia (TN type II) [ X ] Demand ischemia without TN [ ] Other diagnosis [ ] Unable to determine In addition, please specify: Present on Admission (POA): [ X ] Yes [ ] No [ ] Unable to determine For continuity of documentation, please document condition throughout progress notes and discharge summary. Thank You. CLINICAL INDICATORS - SIGNS / SYMPTOMS/ LABS 2-18 H&P (Derek): VS on presentation: BP 88/66, HR 100 BP recovered after some hydration Hypotension on presentation unclear etiology Mildly elevated troponins, could be non-ST elevation myocardial infarction type. will consult Cardiology Labs 07/28: Troponin I 0.029 0.050 0.063 07-29 (Summer): Hypotension likely d/t dehydration resolved w/ fluids in ER NSTEMI indeterminate troponins, new, possibly troponin leak d/t hypotension Cardio consulted, ECHO last year w/ EF 65-70%, chronically elevated BNP w/ edema, suspect chronic diastolic CHF though not currently exacerbated. 07-29(Avel): Admitted with increased SOB Hx of exertional chest pain and minimally elevated troponin Is. This certainly could be due to demand ischemia or his renal insufficiency - (Chepe) NSTEMI (non-ST elevated myocardial infarction) indeterminate troponins, new , possibly troponin leak due to hypotension, Stress test negative, will d/c home on Eliquis if ok with Dr. Vallecillo RISKS: H&P 07/28: Hx of HTN. Myelofibrosis. Previous admissions due to dehydration. EKG: Pt has atrial fibrillation with controlled ventricular response, RBBB TREATMENT: Cardiology Consult DC Summary: Pt was started on Multaq for control of his atrial fibrillation. He was anticoagulated with Lovenox during hospitalization and at discharge, he was converted to Eliquis Thank you, Nilda (This form is maintained as a part of the permanent medical record) 2015 [employer] All Rights Reserved Nilda Johnson RN, BSN [email or web address] Office: [phone] [facility]
== END 2018-07-31 13:50 | disposition home or self-care (01) | DRG 315 ==
LOC: SCSER 14:46 → 2SE 17:47
PROVIDERS: ADMIT Internal Medicine; ATTEND Internal Medicine
DX: I95.9 Hypotension, unspecified (principal); I24.8 Other forms of acute ischemic heart disease; N17.9 Acute kidney failure, unspecified; D75.81 Myelofibrosis; I12.9 Hypertensive chronic kidney disease with stage 1 through stage 4 chronic kidney disease, or unspecified chronic kidney disease; N18.3 Chronic kidney disease, stage 3 (moderate); K57.30 Diverticulosis of large intestine without perforation or abscess without bleeding; K21.9 Gastro-esophageal reflux disease without esophagitis; I48.91 Unspecified atrial fibrillation; J44.9 Chronic obstructive pulmonary disease, unspecified; Z87.891 Personal history of nicotine dependence; D45 Polycythemia vera; D46.9 Myelodysplastic syndrome, unspecified; I48.0 Paroxysmal atrial fibrillation
CPT/HCPCS: 36415; 71045; 78451; 78452; 80048; 80053; 82553; 83690; 83880; 84484; 85025; 85379; 93005; 93017; 93306; 94760; 96360; 96372; A9500; A9540; A9558; J1650; J2785

== ENCOUNTER 2018-08-06 12:23 | Emergency (ER) | payer MEDICARE, BC ==
[2018-08-06 13:29] LABS: Hemoglobin 11.2 g/dL (14.0-18.0); Mean Corpuscular HGB CONC 30.6 g/dL (32.0-36.0); Mean Corpuscular Hemoglobin 28.1 pg (27.0-31.0); Mean Corpuscular Volume 91.9 fL (78.0-98.0); Platelet Count 362 thou/uL (130-400); RBC Distribution Width 18.8 % (11.5-14.5)
--- NOTE | 2018-08-06 13:45 | RAD ---
CHEST ONE VIEW: History: Hypotension. Comparison: 07-28-18 FINDINGS: Heart size is within normal limits. There are atherosclerotic changes and a tortuous aorta. The lungs are clear of any infiltrative process. IMPRESSION: No active intrathoracic disease. POS: [facility]
[2018-08-06 13:48] LABS: ALT (SGPT) 9 U/L (8-55); AST (SGOT) 14 U/L (5-34); Albumin 4.1 g/dL (3.4-4.8); Alkaline Phosphatase 57 U/L (40-150); Anion Gap 13 mmol/L (10-20); BUN (Urea Nitrogen) 31 mg/dL (8.4-25.7); Band 7 % (5-11); Bilirubin, Total 0.5 mg/dL (0.2-1.2); Calc. Creatinine Clearance 0 mL/min (70-130); Calcium 8.6 mg/dL (7.8-10.44); Carbon Dioxide 23 mmol/L (23-31); Chloride 104 mmol/L (98-107); Eosinophils 7 % (0-10); Estimated GFR-MDRD 38; Globulin 2.5 g/dL (2.4-3.5); Glucose 82 mg/dL (83-110); Large Platelets SLIGHT; Lymphocytes 12 % (21-51); MDiff Complete? YES; Metamyelocyte 3 % (0-0); Monocytes 6 % (0-10); Myelocyte 2 % (0-0); Neutrophil 59 % (42-75); Nucleated RBC 1 % (0); Ovalocytes MODERATE= 6-15 cells (100X) (0-1/hpf); Platelet Morphology Comment Appears Adequate; Polychromasia MODERATE = 3-4 cells (100X) (0-2/hpf); Potassium 5.1 mmol/L (3.5-5.1); Protein, Total 6.6 g/dL (5.8-8.1); Reactive Lymphocytes 2 % (0-10); Sodium 135 mmol/L (136-145); Tear Drops SLIGHT = 2-5 cells (100X) (0-1/hpf); White Blood Cell (WBC) Count 9.5 thou/uL (4.8-10.8)
== END 2018-08-06 14:35 | disposition home or self-care (01) ==
LOC: ERS 12:23
DX: I95.9 Hypotension, unspecified (principal); I10 Essential (primary) hypertension; I48.91 Unspecified atrial fibrillation; I71.4 Abdominal aortic aneurysm, without rupture; Z87.891 Personal history of nicotine dependence
CPT/HCPCS: 36415; 71045; 80053; 84484; 85025; 93005

== ENCOUNTER 2018-11-30 09:53 | Emergency (ER) | payer MEDICARE, BC ==
[2018-11-30 10:41] LABS: #Basophils 0.3 thou/uL (0.0-0.2); #Eosinphils 0.4 thou/uL (0.0-0.7); #Lymphocytes 1.1 thou/uL (1.20-3.40); #Monocytes 0.8 thou/uL (0.11-0.59); #Neutrophils 9.1 thou/uL (1.40-6.50); %Basophils 2.7 % (0.0-1.0); %Eosinophils 3.1 % (0.0-10.0); %Lymphocytes 9.4 % (21.0-51.0); %Monocytes 7.1 % (0.0-10.0); %Neutrophils 77.7 % (42.0-75.0); Hemoglobin 12.5 g/dL (14.0-18.0); Mean Corpuscular HGB CONC 30.1 g/dL (32.0-36.0); Mean Platelet Volume 10.4 fL (7.4-10.4); Platelet Count 512 thou/uL (130-400); RBC Distribution Width 22.7 % (11.5-14.5); Red Blood Cell (RBC) Count 4.99 mill/uL (4.70-6.10); White Blood Cell (WBC) Count 11.7 thou/uL (4.8-10.8)
[2018-11-30 10:44] LABS: INR-International Normal Ratio 1.5; Prothrombin Time 17.7 SEC (12.0-14.7)
[2018-11-30 10:45] LABS: PTT 47.9 SEC (22.9-36.1)
[2018-11-30] MEDS ORDERED: Tranexamic Acid 1,000 MG/10 ML VIAL FS SCH (11:00)
[2018-11-30] MEDS ORDERED: Tranexamic Acid 1,000 MG/10 ML VIAL ONE (11:12)
[2018-11-30] MEDS ORDERED: Lidocaine 1% w/Epinephrine 1:100K 20 ML VIAL ONE (13:39)
[2018-11-30] MEDS ORDERED: Silver Nitrate Application 1 EACH ONE ×2 (14:26→14:28)
== END 2018-11-30 12:48 | disposition home or self-care (01) ==
LOC: ERS 09:53
DX: S01.512A Laceration without foreign body of oral cavity, initial encounter (principal); J44.9 Chronic obstructive pulmonary disease, unspecified; I10 Essential (primary) hypertension; I49.9 Cardiac arrhythmia, unspecified; I48.91 Unspecified atrial fibrillation; X58.XXXA Exposure to other specified factors, initial encounter; Z87.891 Personal history of nicotine dependence; Z79.01 Long term (current) use of anticoagulants
CPT/HCPCS: 36415; 85025; 85610; 85730; 99283; J2001

== ENCOUNTER 2019-06-25 13:41 | Outpatient (CLI) | payer MEDICARE, BC ==
--- NOTE | 2019-06-25 13:55 | RAD ---
2 view chest: [06/25/2019] Comparison:05/30/2018 HISTORY: Dyspnea FINDINGS: There is atherosclerotic calcification of the ascending aorta. There is increased soft tissue density in the medial left lung base suggesting a prominent/tortuous d escending thoracic aorta. Aneurysm is a possibility. This is more conspicuous than on the prior examination. There is mild increased linear interstitial density and pulmonary hyperinflation suggesting stable CO PD in the proper clinical setting. IMPRESSION: Interstitial prominence and pulmonary hyperinflation suggesting COPD. No focal consolidat ion or alveolar edema. Soft tissue density in the medial left base suggests a tortuous, possibly aneurysmal, descending thor acic aorta. CT is suggested.
== END 2019-06-25 13:42 | disposition home or self-care (01) ==
LOC: RAD 13:41
PROVIDERS: ATTEND Internal Medicine Critical Care Medicine
DX: R06.00 Dyspnea, unspecified (principal)
CPT/HCPCS: 71046

== ENCOUNTER 2019-07-09 12:23 | Outpatient (CLI) | payer MEDICARE, BC ==
--- NOTE | 2019-07-09 13:15 | CT ---
EXAM: CT of the chest without contrast HISTORY: Aortic aneurysm without rupture COMPARISON: 12/18/2012 TECHNIQUE: Multiple contiguous axial images were obtained in a CT the chest without contrast. Coronal and sagittal reformats were performed. FINDINGS: Atherosclerotic disease is seen in the aorta. The aortic root measures 3.6 cm in greatest dimension. The ascending aorta measures 3.6 cm in greatest dimension at the level of the main pulmonary artery. The descending thoracic aorta measures 3.2 cm in greatest dimension. HEART: Normal in size without focal cardiac abnormality MEDIASTINUM: No hilar or mediastinal lymphadenopathy. Evaluation of the mediastinum is limited withou t IV contrast. LUNGS: No focal infiltrates, nodules, or masses. PLEURAL SPACE: No pneumothorax or pleural effusion. CHEST WALL SOFT TISSUES: Unremarkable OSSEOUS STRUCTURES: Degenerative changes in the spine. VISUALIZED SUBDIAPHRAGMATIC STRUCTURES: Polycystic kidneys. Status post cholecystectomy. IMPRESSION: No evidence of thoracic aortic aneurysm.
== END 2019-07-09 12:24 | disposition home or self-care (01) ==
LOC: CT 12:23
PROVIDERS: ATTEND Internal Medicine Critical Care Medicine
DX: I71.9 Aortic aneurysm of unspecified site, without rupture (principal)
CPT/HCPCS: 71250

== ENCOUNTER 2020-01-06 15:11 | Inpatient (IN) | payer MEDICARE, BC, OTHER ==
[2020-01-06 15:49] LABS: #Eosinphils 0.2 thou/uL (0.0-0.7); #Lymphocytes 0.9 thou/uL (1.20-3.40); #Monocytes 0.9 thou/uL (0.11-0.59); #Neutrophils 4.9 thou/uL (1.40-6.50); %Eosinophils 2.4 % (0.0-10.0); %Lymphocytes 13.6 % (21.0-51.0); %Monocytes 13.4 % (0.0-10.0); %Neutrophils 70.6 % (42.0-75.0); Hemoglobin 8.5 g/dL (14.0-18.0); Mean Corpuscular HGB CONC 33.2 g/dL (32.0-36.0); Mean Corpuscular Hemoglobin 31.3 pg (27.0-31.0); Mean Corpuscular Volume 94.2 fL (78.0-98.0); Mean Platelet Volume 10.3 fL (7.4-10.4); Platelet Count 172 thou/uL (130-400); RBC Distribution Width 17.2 % (11.5-14.5); Red Blood Cell (RBC) Count 2.72 mill/uL (4.70-6.10); White Blood Cell (WBC) Count 6.9 thou/uL (4.8-10.8)
--- NOTE | 2020-01-06 15:52 | RAD ---
EXAM: Single view of the chest HISTORY: Cough and fever COMPARISON: 08/06/2018 FINDINGS: Single view of the chest shows a normal sized cardiomediastinal silhouette. Atheroscleroti c calcifications are seen in the aorta. There is no evidence of consolidation, mass, or pleural effusion. The bones are unremarkable IMPRESSION: No evidence of acute cardiopulmonary disease
[2020-01-06 15:54] LABS: INR-International Normal Ratio 1.6; Prothrombin Time 18.7 sec (12.0-14.7)
[2020-01-06 15:55] LABS: PTT 42.8 sec (22.9-36.1)
[2020-01-06 16:09] LABS: ALT (SGPT) 24 U/L (8-55); AST (SGOT) 27 U/L (5-34); Albumin 4.1 g/dL (3.4-4.8); Alkaline Phosphatase 45 U/L (40-110); Anion Gap 12 mmol/L (10-20); BUN (Urea Nitrogen) 45 mg/dL (8.4-25.7); Bilirubin, Total 0.6 mg/dL (0.2-1.2); Calc. Creatinine Clearance 0 mL/min (70-130); Calcium 8.3 mg/dL (7.8-10.44); Carbon Dioxide 23 mmol/L (23-31); Chloride 103 mmol/L (98-107); Estimated GFR-MDRD 25; Globulin 2.1 g/dL (2.4-3.5); Glucose 92 mg/dL (83-110); Protein, Total 6.2 g/dL (5.8-8.1); Sodium 133 mmol/L (136-145)
[2020-01-06] MEDS ORDERED: Acetaminophen 650 MG Suppository PR PRN (17:57)
[2020-01-06] MEDS ORDERED: Acetaminophen 325 MG TAB PO PRN (17:57)
[2020-01-06 19:12] LABS: Iron 42 ug/dL (65-175); Iron Binding Capacity, Total 260 mcg/dL (261-462)
[2020-01-06 19:30] LABS: SARS-CoV-2 NAA Rapid Test DETECTED (NotDetected)
[2020-01-06 19:38] LABS: Ferritin 128.97 ng/mL (22-322)
[2020-01-06] MEDS ORDERED: Famotidine 20 MG TAB PO SCH (21:00)
[2020-01-06 21:20] LABS: Lactic Acid 0.4 mmol/L (0.5-2.2)
[2020-01-06] MEDS: Pantoprazole 40 MG VIAL IVP SCH (22:01)
[2020-01-06] MEDS ORDERED: Dronedarone HCl 400 MG TAB PO SCH (22:45)
[2020-01-06] MEDS ORDERED: Terazosin HCl 5 MG CAP PO SCH (22:45)
[2020-01-06] MEDS ORDERED: Sodium Chloride 0.9% 1,000 ML IV SCH (23:00)
[2020-01-06 23:06] LABS: Hemoglobin 8.5 g/dL (14.0-18.0)
[2020-01-07 01:49] LABS: Bilirubin Negative (Negative); Blood, Urine Trace (Negative); Clarity Clear (Clear); Glucose, Urine (Dipstick) Normal (Negative); Ketone, Urine Negative (Negative); Leukocyte Negative Leu/uL (Negative); Nitrite Negative (Negative); Protein, Urine (Dipstick) 10 mg/dL (Neg-Trace); RBC/HPF 0-3 HPF (0-3); Specific Gravity, Urine 1.013 (1.002-1.036); Squamous Epithelial 0-3 HPF (0-3); Urobilinogen 3 mg/dL (Less than 2); WBC/HPF 0-3 HPF (0-3)
[2020-01-07 01:50] LABS: Bacteria/HPF 1+ HPF (None Seen); Urine Culture Reflex Yes Yes
--- NOTE | 2020-01-07 05:19 | HP ---
TIME OF ASSESSMENT: 1700 hours. HISTORY OF PRESENT ILLNESS: The patient presents after seeing Dr. Clark in clinic due to anemia. He apparently had labs done that showed a hemoglobin of 11, and when repeated, had decreased to 7. He has a history of myelofibrosis. However, Dr. Clark felt he should undergo GI workup given the fact that he has had a history of GI bleeds in the past. The patient apparently has had shortness of breath with exertion, which he states is chronic and has been unchanged for the last year. Denies having any lightheadedness or dizziness. Did notice occasional episodes of mild chest pain today that have been intermittent, lasting seconds at a time, which he rates at 1/10 in severity. The pain has been nonradiating. Reports developing a cough yesterday that is dry. His is currently admitted to the hospital with pneumonia. The patient has been afebrile. Denies any nausea or vomiting. No abdominal pain. Has not had any hematemesis. No melena or bright red blood per rectum. He states he feels well in himself. He is on anticoagulation with Eliquis for history of atrial fibrillation. The patient is without any complaints at present. EMERGENCY DEPARTMENT COURSE: In the emergency department, he had laboratory studies done that showed a hemoglobin of 8.5, hematocrit 25.6, platelets 172, neutrophils 70.6%. PT 18.7, INR 1.6, PTT 42.8. He has a BUN of 45, creatinine of 2.54 with known history of chronic kidney disease. Renal function is essentially stable when compared to prior laboratory studies. LFTs are unremarkable. Sodium slightly low at 133. Potassium 5. He had an EKG done showing normal sinus rhythm with PACs and a heart rate of 67. He had a chest x-ray done, which showed no evidence of acute cardiopulmonary disease. Of note, his was tested for COVID and tested negative. He was, however, screened for COVID as well in the emergency department. PAST MEDICAL HISTORY: 1. Myelofibrosis. 2. Diverticulitis. 3. Basal cell carcinoma. 4. COPD. 5. Hypertension. 6. Abdominal aortic aneurysm (iliac aneurysm, treated with coil). 7. Atrial fibrillation. PAST SURGICAL HISTORY: 1. Lumbar surgery x2. 2. Cholecystectomy. 3. Abdominal hernia with mesh repair. 4. Bilateral cataract removal. 5. Left iliac aneurysm repair with a coil. SOCIAL HISTORY: The patient lives with his family. Previously smoked, but quit more than 5 years ago. Denies any alcohol consumption or illicit drug use. ALLERGIES: CIPRO AND LEVAQUIN. CURRENT MEDICATIONS: . PHYSICAL EXAMINATION: GENERAL: The patient appears thin, well developed, resting comfortably on a stretcher, and in no acute distress. VITAL SIGNS: Temperature 98.7, pulse 72, blood pressure 122/67, respirations 26, O2 saturation 98% on room air. HEENT: Normocephalic and atraumatic. Pupils are equal, round, and reactive to light. Sclerae without icterus. Oropharynx is clear. Oral mucosa is moist. NECK: Supple. LUNGS: Clear to auscultation bilaterally without any wheezes, rales, or rhonchi. CARDIAC: Regular rate and rhythm. HEART: Heart sounds with S1 and S2, systolic murmur. ABDOMEN: Soft, nontender, nondistended. Normoactive bowel sounds present. No guarding or rigidity. No renal angle tenderness. EXTREMITIES: No lower leg swelling or edema. NEUROLOGIC: Alert and oriented x3. No neuro deficits on exam. Speech normal. SKIN: Warm and dry. Normal turgor. INVESTIGATIONS: As mentioned above in HPI. IMPRESSION AND PLAN: Mr. Crews is a pleasant 79-year-old gentleman who is being admitted for management of the following. 1. Anemia: The patient does have shortness of breath on exertion, but he states this has been ongoing for the last year and unchanged. He did have a significant drop in his hemoglobin from 11 to 7. Repeat done here was 8.5. Transfusion has been ordered, and Gastroenterology consult will be placed. We will continue to monitor hemoglobin and hematocrit. No signs or symptoms of gastrointestinal bleed at present; however, the patient does have a history of gastrointestinal bleeds in the past. He is on Eliquis, which we will hold for now. We will add iron studies. 2. Chest pain. The patient reports a mild 1/10 chest pain that started this afternoon, lasting a couple of seconds at a time. Nonradiating. EKG without any ST changes. Initial troponin negative. We will continue to trend troponins and put him on telemetry. 3. Cough: The patient developed a cough since yesterday. The patient denies fever, but per emergency department notes, the daughter had reported a fever of 100.7, for which he took Tylenol prior to coming in. His was recently admitted for pneumonia and tested negative for COVID. We will monitor the patient. We will add lactic acid and procalcitonin. Chest x-ray was unremarkable. We will obtain urinalysis. The patient will also be tested for COVID. 4. Myelofibrosis: The patient is seen by Dr. Clark. 5. Hypertension: Monitor blood pressure. Reconcile home medications as appropriate. 6. Chronic kidney disease. Monitor renal function. Appears essentially stable at present. 7. Atrial fibrillation: The patient is on chronic anticoagulation with Eliquis, which we will hold due to anemia. 8. Gastrointestinal prophylaxis: We will start the patient on Protonix 40 mg IV b.i.d., in the event he does have gastrointestinal bleed. 9. Deep venous thrombosis prophylaxis: Mechanical sequential compression devices. 10. Code status is full. Surrogate decision maker is his , Parul Crews. Case was discussed with Dr. Barcenas who agrees upon the care as described above. Job ID: [id number]
[2020-01-07 07:08] LABS: Mean Corpuscular HGB CONC 33.5 g/dL (32.0-36.0); Mean Corpuscular Hemoglobin 31.4 pg (27.0-31.0); Mean Corpuscular Volume 93.9 fL (78.0-98.0); Mean Platelet Volume 10.1 fL (7.4-10.4); Platelet Count 121 thou/uL (130-400); Red Blood Cell (RBC) Count 2.87 mill/uL (4.70-6.10); White Blood Cell (WBC) Count 5.2 thou/uL (4.8-10.8)
[2020-01-07 07:12] LABS: Anion Gap 12 mmol/L (10-20); BUN (Urea Nitrogen) 42 mg/dL (8.4-25.7); Calc. Creatinine Clearance 28 mL/min (70-130); Carbon Dioxide 21 mmol/L (23-31); Chloride 106 mmol/L (98-107); Estimated GFR-MDRD 29; Glucose 88 mg/dL (83-110); Potassium 4.5 mmol/L (3.5-5.1); Sodium 134 mmol/L (136-145)
[2020-01-07] MEDS: Pantoprazole 40 MG VIAL IVP SCH ×2 (08:04→20:37)
[2020-01-07] MEDS: Vit A,C & E/Lutein/Minerals Tablet PO SCH (08:04)
[2020-01-07] MEDS: Dronedarone HCl 400 MG TAB PO SCH ×2 (08:04→16:38)
[2020-01-07 08:30] LABS: Band 17 % (5-11); Lymphocytes 9 % (21-51); Metamyelocyte 4 % (0-0); Monocytes 13 % (0-10); Neutrophil 49 % (42-75); Nucleated RBC 6 % (0); Reactive Lymphocytes 4 % (0-10)
[2020-01-07 08:32] LABS: Ovalocytes SLIGHT = 2-5 cells (100X) (0-1/hpf); Polychromasia SLIGHT = 2-3 cells (100X) (0-2/hpf); Tear Drops SLIGHT = 2-5 cells (100X) (0-1/hpf)
[2020-01-07 08:33] LABS: MDiff Complete? YES; Platelet Morphology Comment Appears Decreased
[2020-01-07] MEDS ORDERED: Dexamethasone 6 MG in Sodium Chloride 0.9% 50 ML SLOW IVP SCH (11:15)
[2020-01-07] MEDS ORDERED: Ondansetron PF 4 MG/2 ML Vial IVP SCH (11:45)
--- NOTE | 2020-01-07 13:21 | PDOC.HOSPP ---
- Subjective Encounter Date: 01/07/20 Encounter Time: 10:40 Subjective: has nausea and vomited x2 per patient this morning feels weak and exhausted no chest pain or palp or abd pain has black stools in his diaper - Objective Vital Signs & Weight: Vital Signs (12 hours) Temp Pulse Pulse Resp BP BP Pulse Ox 01/07/20 12:00 84 18 124/62 98 01/07/20 05:50 99.4 F 84 20 111/63 01/07/20 05:00 99.3 F 84 22 H 117/64 99 01/07/20 03:00 99.8 F H 95 22 H 117/64 95 Weight Weight 154 lb 2 oz I&O: 01/06/20 01/07/20 01/08/20 06:59 06:59 06:59 Intake Total 870 Output Total 200 Balance 670 Result Diagrams: 01/07/20 11:12 01/07/20 06:38 Hospitalist ROS - Medication Medications: Active Medications Generic Name Dose Route Start Last Admin Trade Name Freq PRN Reason Stop Dose Admin Dronedarone 400 mg 01/07/20 08:00 01/07/20 08:04 Multaq PO 400 mg BID-WM EDNA Administration Dexamethasone 6 mg/ Sodium 51.5 mls @ 103 mls/hr 01/07/20 11:15 01/07/20 11: 41 Chloride SLOW IVP 01/07/20 14:00 51.5 mls NOW EDNA Administration Multivitamins/Minerals 1 tab 01/07/20 09:00 01/07/20 08:04 Ocuvite With Lutein PO 1 tab DAILY EDNA Administration Ondansetron HCl 4 mg 01/07/20 11:45 01/07/20 11:41 Zofran IVP 01/07/20 14:00 4 mg NOW EDNA Administration Pantoprazole Sodium 40 mg 01/06/20 21:00 01/07/20 08:04 Protonix IVP 40 mg BID EDNA Administration Sodium Chloride 10 ml 01/06/20 17:57 01/06/20 22:01 Flush - Normal Saline IVF 10 ml Q12HR PRN Administration Saline Flush - Exam General Appearance: awake alert, ill appearing Eye: PERRL, anicteric sclera ENT: no oropharyngeal lesions, dry oral mucosa Neck: supple, no JVD Heart: RRR, no murmur Respiratory: no wheezes, no rales Gastrointestinal: soft, non-tender, non-distended, normal bowel sounds Extremities: no cyanosis, no edema Neurological: cranial nerve grossly intact, no focal deficits Hosp A/P (1) GI bleed Code(s): K92.2 - GASTROINTESTINAL HEMORRHAGE, UNSPECIFIED Status: Acute Qualifiers: GI bleed type/associated pathology: unspecified gastrointestinal hemorrhage type Qualified Code(s): K92.2 - Gastrointestinal hemorrhage, unspecified (2) COVID-19 virus infection Code(s): U07.1 - COVID-19 Status: Acute (3) Acute blood loss anemia Code(s): D62 - ACUTE POSTHEMORRHAGIC ANEMIA Status: Acute (4) Myelofibrosis Code(s): D75.81 - MYELOFIBROSIS Status: Chronic (5) Atrial fibrillation Code(s): I48.91 - UNSPECIFIED ATRIAL FIBRILLATION Status: Chronic Qualifiers: Atrial fibrillation type: paroxysmal (6) Diverticulosis of colon Code(s): K57.30 - DVRTCLOS OF LG INT W/O PERFORATION OR ABSCESS W/O BLEEDING Status: Chronic (7) GERD (gastroesophageal reflux disease) Code(s): K21.9 - GASTRO-ESOPHAGEAL REFLUX DISEASE WITHOUT ESOPHAGITIS Status: Chronic Qualifiers: Esophagitis presence: esophagitis presence not specified Qualified Code(s) : K21.9 - Gastro-esophageal reflux disease without esophagitis (8) H/O abdominal aortic aneurysm repair Code(s): Z98.890 - OTHER SPECIFIED POSTPROCEDURAL STATES Status: Chronic (9) Hypertension Code(s): I10 - ESSENTIAL (PRIMARY) HYPERTENSION Status: Chronic Qualifiers: Hypertension type: essential hypertension - Plan has recieved 2 u prbc yesterday, Hb around 10g this am still has melena, appears pale and exhausted with nausea/vomiting covid 19 virus pcr is +ve, will place him on dexamethasone d/w and plan is for serial h/h and transfuse, endoscopy if he becomes unstable or has persistent drop in H/H hold immunotherapy for now continue amiodarone, protonix bid change status to inpatient, needs close monitoring PT to mobilize in am if stable
[2020-01-07] MEDS: Dextrose 5 % And 0.9 % NaCl 1,000 ML IV SCH (16:38)
[2020-01-07 17:03] LABS: Hemoglobin 9.1 g/dL (14.0-18.0)
[2020-01-07] MEDS: Terazosin HCl 5 MG CAP PO SCH (20:37)
[2020-01-07 20:45] LABS: SARS-CoV-2 IgG Ab Non-Reactive (NonReactive); SARS-CoV-2 IgG Index 0.01 S/CO (< 1.40)
[2020-01-07] MEDS ORDERED: Famotidine 20 MG TAB PO SCH (21:00)
[2020-01-07 23:34] LABS: Hemoglobin 8.6 g/dL (14.0-18.0)
[2020-01-08] MEDS: Dextrose 5 % And 0.9 % NaCl 1,000 ML IV SCH ×2 (06:00→20:44)
[2020-01-08] MEDS: Dronedarone HCl 400 MG TAB PO SCH ×2 (08:45→17:00)
[2020-01-08] MEDS: Pantoprazole 40 MG VIAL IVP SCH ×2 (08:45→20:37)
[2020-01-08] MEDS: Vit A,C & E/Lutein/Minerals Tablet PO SCH (08:45)
[2020-01-08] MEDS ORDERED: Dexamethasone 6 MG in Sodium Chloride 0.9% 50 ML SLOW IVP SCH (09:00)
[2020-01-08] MEDS ORDERED: Dexamethasone 4 mg/ml Vial SLOW IVP SCH (09:00)
--- NOTE | 2020-01-08 12:20 | PDOC.HOSPP ---
- Subjective Encounter Date: 01/08/20 Encounter Time: 11:00 Subjective: no sob, has cough responds well to verbal stimuli no nausea or abd pain now, ate his breakfast with eggs - Objective Vital Signs & Weight: Vital Signs (12 hours) Temp Pulse Pulse Pulse Resp BP BP 01/08/20 11:00 97.8 F 79 20 01/08/20 10:50 79 84 106/73 110/78 01/08/20 08:55 98.4 F 81 18 01/08/20 02:57 98.7 F 77 20 BP Pulse Ox Pulse Ox 01/08/20 11:00 106/73 97 01/08/20 10:50 97 01/08/20 08:55 101/61 98 01/08/20 02:57 128/75 93 L Weight Weight 154 lb 2 oz I&O: 01/07/20 01/08/20 01/09/20 06:59 06:59 06:59 Intake Total 870 1837 Output Total 200 500 550 Balance 670 1337 -550 Result Diagrams: 01/07/20 23:18 01/07/20 06:38 Hospitalist ROS - Medication Medications: Active Medications Generic Name Dose Route Start Last Admin Trade Name Freq PRN Reason Stop Dose Admin Dexamethasone 6 mg 01/08/20 09:00 01/08/20 08:45 Decadron SLOW IVP 6 mg DAILY EDNA Administration Dronedarone 400 mg 01/07/20 08:00 01/08/20 08:45 Multaq PO 400 mg BID-WM EDNA Administration Dextrose/Sodium Chloride 1,000 mls @ 75 mls/hr 01/07/20 16:00 01/08/20 06:00 D5 0.9% Ns IV Not Given .[id number] EDNA Multivitamins/Minerals 1 tab 01/07/20 09:00 01/08/20 08:45 Ocuvite With Lutein PO 1 tab DAILY EDNA Administration Pantoprazole Sodium 40 mg 01/06/20 21:00 01/08/20 08:45 Protonix IVP 40 mg BID EDNA Administration Jakafi 10 Mg 0 each 01/08/20 09:00 01/08/20 08:45 PO 1 each Q2DAYS@0900,2100 EDNA Administration Sodium Chloride 10 ml 01/06/20 17:57 01/06/20 22:01 Flush - Normal Saline IVF 10 ml Q12HR PRN Administration Saline Flush Terazosin HCl 10 mg 01/07/20 21:00 01/07/20 20:37 Hytrin PO 10 mg HS EDNA Administration - Exam General Appearance: awake alert Eye: PERRL, anicteric sclera ENT: no oropharyngeal lesions, moist mucosa Neck: supple, no JVD Heart: RRR, no murmur Respiratory: no wheezes, no rales Gastrointestinal: soft, non-tender, non-distended, normal bowel sounds Extremities: no cyanosis, no edema Neurological: cranial nerve grossly intact, no focal deficits Psychiatric: A&O x 3 Hosp A/P (1) GI bleed Code(s): K92.2 - GASTROINTESTINAL HEMORRHAGE, UNSPECIFIED Status: Acute Qualifiers: GI bleed type/associated pathology: unspecified gastrointestinal hemorrhage type Qualified Code(s): K92.2 - Gastrointestinal hemorrhage, unspecified (2) COVID-19 virus infection Code(s): U07.1 - COVID-19 Status: Acute (3) Acute blood loss anemia Code(s): D62 - ACUTE POSTHEMORRHAGIC ANEMIA Status: Acute (4) Myelofibrosis Code(s): D75.81 - MYELOFIBROSIS Status: Chronic (5) Atrial fibrillation Code(s): I48.91 - UNSPECIFIED ATRIAL FIBRILLATION Status: Chronic Qualifiers: Atrial fibrillation type: paroxysmal (6) Diverticulosis of colon Code(s): K57.30 - DVRTCLOS OF LG INT W/O PERFORATION OR ABSCESS W/O BLEEDING Status: Chronic (7) GERD (gastroesophageal reflux disease) Code(s): K21.9 - GASTRO-ESOPHAGEAL REFLUX DISEASE WITHOUT ESOPHAGITIS Status: Chronic Qualifiers: Esophagitis presence: esophagitis presence not specified Qualified Code(s) : K21.9 - Gastro-esophageal reflux disease without esophagitis (8) H/O abdominal aortic aneurysm repair Code(s): Z98.890 - OTHER SPECIFIED POSTPROCEDURAL STATES Status: Chronic (9) Hypertension Code(s): I10 - ESSENTIAL (PRIMARY) HYPERTENSION Status: Chronic Qualifiers: Hypertension type: essential hypertension - Plan has recieved 2 u prbc 01/05, Hb around 8g this am clinically appears more stable than yesterday and is tolerating oral diet, unclear if he still has melena (pt says he has not had bm this am) covid 19 virus pcr is +ve, is on dexamethasone, will consult , not on oxygen, is immunosuppressed d/w and , d/w daughter over phone and gave full updates plan is for serial h/h and transfuse, endoscopy if he becomes unstable or has persistent drop in H/H continue amiodarone, protonix bid needs close monitoring of h/h with progressive drop PT to mobilize as tolerated
[2020-01-08 12:57] LABS: Hemoglobin 8.5 g/dL (14.0-18.0)
--- NOTE | 2020-01-08 16:00 | CON ---
DATE OF CONSULTATION: REASON FOR CONSULTATION: COVID infection. HISTORY OF PRESENT ILLNESS: A 79-year-old with history of myelofibrosis, BPH, hypertension, and COPD, who was transferred from [facility] because of anemia. He was admitted by Dr. Clark. His hemoglobin was checked in the 7s, down from 10. He got a low-grade temperature of 100.7. Recently, had been admitted with pneumonia and had been tested many times with negative COVID results, but the now has tested the 5th time with the antibody test positive, low titers. BP 104/62, pulse 70, respirations 20, temperature 97.9, and O2 saturation 96 on facemask. He has been saturating at 97, 98, 99 on room air since admission. He is somewhat pale, appears chronically ill, but in no acute distress. He coughed a few times, but not much. He denies any headaches. No visual symptoms, sore throat, odynophagia, or dysphagia. No dental pain. No back pain. No dyspnea. No abdominal pain. Voiding without difficulty. No diarrhea. No joint symptoms. MEDICAL HISTORY: 1. Myelofibrosis. 2. Diverticulitis. 3. Basal cell cancer of skin. 4. COPD. 5. Hypertension. 6. AFib. 7. Laminectomy x2. 8. Cholecystectomy. 9. Hernia mesh repair. 10. Cataracts. 11. Iliac aneurysm and AAA repair. SOCIAL HISTORY: Retired. Lives with in the area. Former smoker, quit less than 10 years before. FAMILY HISTORY: Noncontributory except for the positive antibody test for COVID in the who had a pneumonia and was recently admitted to the hospital. ALLERGIES: QUINOLONES. MEDICATIONS: At the moment, includes: 1. Jakafi, which is for treatment of myelofibrosis. 2. The patient is also on Decadron 6 mg daily. 3. Pantoprazole. 4. Terazosin. PHYSICAL EXAMINATION: VITAL SIGNS: He has been afebrile, he had a temperature of 100.9 when he came and now he is afebrile; his O2 sats were like in the 99, went down to 94, and now 97. SKIN: Not remarkable. No lymphadenopathy. Peripheral IV access. HEENT: Ocular movements conjugate. Pale conjunctivae. Oral cavity not remarkable. NECK: Supple. LUNGS: Symmetric air entry. No crackles or wheezing. HEART: S1 and S2. Regular rate. No S3 or S4. ABDOMEN: Soft, not distended or tender. EXTREMITIES: No joint inflammatory activity. Moves extremities equally. LABORATORY DATA: White cell count 5.2, hemoglobin 9, platelets 121,000, 49% neutrophils, and 17% bands. INR 1.6. Sodium 134 and creatinine 2.20, which is down from admission. Liver profile normal. Troponin 0.028. Albumin 4.1. Urinalysis with 0 to 3 wbc's. Serology, COVID positive PCR, antibody negative. IMAGING STUDIES: Chest x-ray, which demonstrated no evidence of infiltrates. ASSESSMENT: 1. Myelofibrosis. 2. Chronic obstructive pulmonary disease with COVID infection. Unclear the duration of illness, possibly within the first 2 weeks because his antibody is negative. His tested antibody positive and she had been sick for about 2 weeks before admission. When she came in initially, she had multiple negative PCRs, even the 1st antibody test was negative, so she must be more than 2 weeks. I do not think he meets criteria for Decadron since he seems to have mild disease, and in the study protocol, the Decadron in mild cases had a borderline worse outcome, so I am going to go ahead and discontinue it. Otherwise, he would be eligible for discharge planning unless there is another issue that needs to be fixed before he is discharged. Job ID: [id number]
[2020-01-08 18:30] LABS: Hemoglobin 8.9 g/dL (14.0-18.0)
[2020-01-08] MEDS: Terazosin HCl 5 MG CAP PO SCH (20:37)
[2020-01-09 00:32] LABS: Hemoglobin 7.8 g/dL (14.0-18.0)
[2020-01-09] MEDS ORDERED: Senokot 8.6 MG TAB PO PRN (02:29)
[2020-01-09 09:24] LABS: Hemoglobin 8.4 g/dL (14.0-18.0)
[2020-01-09] MEDS: Vit A,C & E/Lutein/Minerals Tablet PO SCH (09:59)
[2020-01-09] MEDS: Pantoprazole 40 MG VIAL IVP SCH ×2 (09:59→20:03)
[2020-01-09] MEDS: Dronedarone HCl 400 MG TAB PO SCH ×2 (09:59→18:51)
--- NOTE | 2020-01-09 13:54 | PDOC.HOSPP ---
- Subjective Encounter Date: 01/09/20 Encounter Time: 10:15 Subjective: has black stools, no keila bleeding no sob but has cough no abd pain or nausea wants to go home - Objective Vital Signs & Weight: Vital Signs (12 hours) Temp Pulse Pulse Resp BP BP Pulse Ox 01/09/20 11:19 98.6 F 87 24 H 135/65 92 L 01/09/20 11:14 98.2 F 79 20 127/70 96 01/09/20 08:00 98.0 F 73 24 H 115/66 97 01/09/20 03:25 97.9 F 68 20 132/84 99 Weight Weight 154 lb 2 oz I&O: 01/08/20 01/09/20 01/10/20 06:59 06:59 06:59 Intake Total 1837 2925 0 Output Total 500 1725 Balance 1337 1200 0 Result Diagrams: 01/09/20 08:40 01/07/20 06:38 Hospitalist ROS - Medication Medications: Active Medications Generic Name Dose Route Start Last Admin Trade Name Stephanie PRN Reason Stop Dose Admin Dronedarone 400 mg 01/07/20 08:00 01/09/20 09:59 Multaq PO 400 mg BID-WM EDNA Administration Dextrose/Sodium Chloride 1,000 mls @ 75 mls/hr 01/07/20 16:00 01/08/20 20:44 D5 0.9% Ns IV 1,000 mls .[id number] EDNA Administration Multivitamins/Minerals 1 tab 01/07/20 09:00 01/09/20 09:59 Ocuvite With Lutein PO 1 tab DAILY EDNA Administration Pantoprazole Sodium 40 mg 01/06/20 21:00 01/09/20 09:59 Protonix IVP 40 mg BID EDNA Administration Jakafi 10 Mg 0 each 01/08/20 09:00 01/08/20 20:39 PO 10 each Q2DAYS@0900,2100 EDNA Administration Jakafi 10 Mg 0 each 01/09/20 09:00 01/09/20 10:02 PO 1 each Q2DAYS EDNA Administration Senna 1 tab 01/09/20 02:29 01/09/20 02:46 Senokot PO 1 tab HSPRN PRN Administration Constipation Sodium Chloride 10 ml 01/06/20 17:57 01/06/20 22:01 Flush - Normal Saline IVF 10 ml Q12HR PRN Administration Saline Flush Terazosin HCl 10 mg 01/07/20 21:00 01/08/20 20:37 Hytrin PO 10 mg HS EDNA Administration - Exam General Appearance: awake alert Eye: PERRL, anicteric sclera ENT: no oropharyngeal lesions, moist mucosa Neck: supple, no JVD Heart: RRR, no murmur Respiratory: no wheezes, no rales, rhonchi Gastrointestinal: soft, non-tender, non-distended, normal bowel sounds Extremities: no cyanosis, no edema Neurological: cranial nerve grossly intact, no focal deficits Hosp A/P (1) GI bleed Code(s): K92.2 - GASTROINTESTINAL HEMORRHAGE, UNSPECIFIED Status: Acute Qualifiers: GI bleed type/associated pathology: unspecified gastrointestinal hemorrhage type Qualified Code(s): K92.2 - Gastrointestinal hemorrhage, unspecified (2) COVID-19 virus infection Code(s): U07.1 - COVID-19 Status: Acute (3) Acute blood loss anemia Code(s): D62 - ACUTE POSTHEMORRHAGIC ANEMIA Status: Acute (4) Myelofibrosis Code(s): D75.81 - MYELOFIBROSIS Status: Chronic (5) Atrial fibrillation Code(s): I48.91 - UNSPECIFIED ATRIAL FIBRILLATION Status: Chronic Qualifiers: Atrial fibrillation type: paroxysmal (6) Diverticulosis of colon Code(s): K57.30 - DVRTCLOS OF LG INT W/O PERFORATION OR ABSCESS W/O BLEEDING Status: Chronic (7) GERD (gastroesophageal reflux disease) Code(s): K21.9 - GASTRO-ESOPHAGEAL REFLUX DISEASE WITHOUT ESOPHAGITIS Status: Chronic Qualifiers: Esophagitis presence: esophagitis presence not specified Qualified Code(s) : K21.9 - Gastro-esophageal reflux disease without esophagitis (8) H/O abdominal aortic aneurysm repair Code(s): Z98.890 - OTHER SPECIFIED POSTPROCEDURAL STATES Status: Chronic (9) Hypertension Code(s): I10 - ESSENTIAL (PRIMARY) HYPERTENSION Status: Chronic Qualifiers: Hypertension type: essential hypertension - Plan recieved 2 u prbc 01/05, Hb around 8g this am despite transfusion, will give 1 u prbc and see cbc in am. Is tolerating oral diet but doesn't like hosp food covid 19 virus pcr is +ve, not on O2, is immunosuppressed d/w and , d/w daughter over phone and gave full updates (01/07, 01/08) plan is for serial h/h and transfuse, endoscopy if he becomes unstable or has persistent drop in H/H continue amiodarone, protonix bid needs close monitoring of h/h with progressive drop PT to mobilize as tolerated
[2020-01-09 14:14] LABS: Hemoglobin 9.4 g/dL (14.0-18.0)
[2020-01-09] MEDS: Dextrose 5 % And 0.9 % NaCl 1,000 ML IV SCH ×2 (14:53→21:30)
[2020-01-09 18:07] LABS: Hemoglobin 10.6 g/dL (14.0-18.0)
[2020-01-09] MEDS: Terazosin HCl 5 MG CAP PO SCH (20:03)
[2020-01-10 01:06] LABS: Hemoglobin 8.6 g/dL (14.0-18.0)
[2020-01-10] MEDS: Dextrose 5 % And 0.9 % NaCl 1,000 ML IV SCH ×2 (03:27→17:56)
[2020-01-10 05:21] LABS: Hemoglobin 9.1 g/dL (14.0-18.0)
[2020-01-10] MEDS: Dronedarone HCl 400 MG TAB PO SCH ×2 (09:49→17:56)
[2020-01-10] MEDS: Vit A,C & E/Lutein/Minerals Tablet PO SCH (09:49)
[2020-01-10] MEDS: Pantoprazole 40 MG VIAL IVP SCH ×2 (09:50→20:14)
[2020-01-10] MEDS ORDERED: Ondansetron ORAL SOLN. 4 MG/5 ML UDCUP PO PRN (13:14)
[2020-01-10] MEDS ORDERED: Ondansetron PF 4 MG/2 ML Vial IVP PRN (13:15)
--- NOTE | 2020-01-10 17:33 | PDOC.HOSPP ---
- Subjective Encounter Date: 01/10/20 Encounter Time: 16:00 Subjective: The patient is doing okay. He ambulates to bathroom per nursing. No SOB or cough. He states he had some nausea this am and vomited green stuff, but is better today Spoke with daughter, patient's daughters are both COVID+. One has a fever. Patient initially admitted for anemia with hemoglobin of 7. Family states they were told he may have diverticulitis. PEr nursing he had loose stools this am which has improved - Objective Vital Signs & Weight: Vital Signs (12 hours) Temp Pulse Resp BP Pulse Ox 01/10/20 16:00 98.9 F 76 18 107/55 L 95 01/10/20 07:32 98.9 F 83 24 H 125/72 96 Weight Weight 154 lb 2 oz I&O: 01/09/20 01/10/20 01/11/20 06:59 06:59 06:59 Intake Total 2925 1650 Output Total 1725 Balance 1200 1650 Result Diagrams: 01/10/20 05:10 01/07/20 06:38 Hospitalist ROS - Review of Systems Constitutional: denies: fever, chills - Medication Medications: Active Medications Generic Name Dose Route Start Last Admin Trade Name Freq PRN Reason Stop Dose Admin Dronedarone 400 mg 01/07/20 08:00 01/10/20 09:49 Multaq PO 400 mg BID-WM EDNA Administration Dextrose/Sodium Chloride 1,000 mls @ 75 mls/hr 01/07/20 16:00 01/10/20 03:27 D5 0.9% Ns IV 1,000 mls .[id number] EDNA Administration Multivitamins/Minerals 1 tab 01/07/20 09:00 01/10/20 09:49 Ocuvite With Lutein PO 1 tab DAILY EDNA Administration Ondansetron HCl 4 mg 01/10/20 13:15 01/10/20 13:28 Zofran IVP 4 mg Q6H PRN Administration Nausea/Vomiting Pantoprazole Sodium 40 mg 01/06/20 21:00 01/10/20 09:50 Protonix IVP 40 mg BID EDNA Administration Jakafi 10 Mg 0 each 01/08/20 09:00 01/10/20 09:52 PO Not Given Q2DAYS@0900,2100 EDNA Jakafi 10 Mg 0 each 01/09/20 09:00 01/09/20 10:02 PO 1 each Q2DAYS EDNA Administration Senna 1 tab 01/09/20 02:29 01/09/20 02:46 Senokot PO 1 tab HSPRN PRN Administration Constipation Sodium Chloride 10 ml 01/06/20 17:57 01/06/20 22:01 Flush - Normal Saline IVF 10 ml Q12HR PRN Administration Saline Flush Terazosin HCl 10 mg 01/07/20 21:00 01/09/20 20:03 Hytrin PO 10 mg HS EDNA Administration - Exam General Appearance: NAD, awake alert Eye: PERRL, anicteric sclera ENT: normocephalic atraumatic, no oropharyngeal lesions Neck: supple, no JVD Heart: RRR, no murmur, no gallops, no rubs Respiratory: CTAB, no wheezes, no rales, no ronchi Gastrointestinal: soft, non-tender, non-distended, normal bowel sounds Extremities: no cyanosis, no clubbing, no edema Skin: normal turgor, no lesions, no rashes Neurological: cranial nerve grossly intact, normal sensation to touch, no focal deficits, no new deficit Hosp A/P - Plan This is a 79 year old male with past medical history of hypertension presenting with anemia, also found to be COVID + Acute blood loss anemia - Hb 7.8, has received 3 units of PRBC here. Hb improved to 9 - stools have been dark per chart review, will order guaiac testing - monitor CBC over night - continue protonix #COVID+ #Nausea/vomiting - possibly from COVID? - stared zofran - check LFT and abdominal X ray -currently on room air, chest X ray is normal SANDI on CKD - creatinine was 2.2, on IV fluids, will repeat BMP to assess for improvement Thrombocytopenia - last platelet count 121, will recheck
[2020-01-10 18:04] LABS: Hemoglobin 9.8 g/dL (14.0-18.0); Mean Corpuscular HGB CONC 32.4 g/dL (32.0-36.0); Mean Corpuscular Hemoglobin 30.6 pg (27.0-31.0); Mean Corpuscular Volume 94.5 fL (78.0-98.0); Mean Platelet Volume 10.2 fL (7.4-10.4); Platelet Count 110 thou/uL (130-400)
[2020-01-10 18:20] LABS: Anion Gap 8 mmol/L (10-20); BUN (Urea Nitrogen) 13 mg/dL (8.4-25.7); Calc. Creatinine Clearance 37 mL/min (70-130); Calcium 8.1 mg/dL (7.8-10.44); Carbon Dioxide 25 mmol/L (23-31); Chloride 109 mmol/L (98-107); Estimated GFR-MDRD 41; Glucose 103 mg/dL (83-110); Potassium 3.8 mmol/L (3.5-5.1); Sodium 138 mmol/L (136-145)
[2020-01-10 18:21] LABS: ALT (SGPT) 28 U/L (8-55); AST (SGOT) 34 U/L (5-34); Albumin 3.7 g/dL (3.4-4.8); Alkaline Phosphatase 37 U/L (40-110); Bilirubin, Direct 0.3 mg/dL (0.1-0.3); Bilirubin, Total 0.6 mg/dL (0.2-1.2); Protein, Total 5.8 g/dL (5.8-8.1)
[2020-01-10] MEDS: Terazosin HCl 5 MG CAP PO SCH (20:14)
--- NOTE | 2020-01-10 20:44 | RAD ---
EXAM: Single view of the abdomen HISTORY: Bilious vomiting COMPARISON: 10/24/2017 FINDINGS: Single view of the abdomen shows a nonspecific, nonobstructive bowel gas pattern. No suspi cious calcifications are seen. A stent is seen in the distal aorta and iliac arteries. A coil overlies the right pelvis. The bones are unremarkable. IMPRESSION: Nonobstructive bowel gas pattern
[2020-01-11 05:46] LABS: Anion Gap 9 mmol/L (10-20); BUN (Urea Nitrogen) 11 mg/dL (8.4-25.7); Calc. Creatinine Clearance 38 mL/min (70-130); Calcium 7.6 mg/dL (7.8-10.44); Carbon Dioxide 24 mmol/L (23-31); Chloride 110 mmol/L (98-107); Estimated GFR-MDRD 42; Glucose 107 mg/dL (83-110); Potassium 3.7 mmol/L (3.5-5.1); Sodium 139 mmol/L (136-145)
[2020-01-11 06:18] LABS: Hemoglobin 8.2 g/dL (14.0-18.0); Mean Corpuscular Volume 93.8 fL (78.0-98.0); Mean Platelet Volume 10.5 fL (7.4-10.4); Platelet Count 104 thou/uL (130-400); RBC Distribution Width 15.9 % (11.5-14.5); Red Blood Cell (RBC) Count 2.74 mill/uL (4.70-6.10); White Blood Cell (WBC) Count 3.8 thou/uL (4.8-10.8)
[2020-01-11] MEDS: Dextrose 5 % And 0.9 % NaCl 1,000 ML IV SCH (06:22)
[2020-01-11 08:09] VITALS: BP 150/75; TEMP 98.2
[2020-01-11] MEDS: Pantoprazole 40 MG VIAL IVP SCH (08:25)
[2020-01-11] MEDS: Vit A,C & E/Lutein/Minerals Tablet PO SCH (08:25)
[2020-01-11] MEDS: Dronedarone HCl 400 MG TAB PO SCH (08:25)
--- NOTE | 2020-01-11 18:27 | DIS ---
DATE OF ADMISSION: 01/07/2020 DATE OF DISCHARGE: 01/11/2020 DISCHARGE DIAGNOSES: 1. Acute blood loss anemia. 2. COVID positive. 3. Nausea/vomiting. 4. Acute kidney injury on chronic kidney disease. 5. Thrombocytopenia. CONSULTATION: Dr. Julio Cerna with Infectious Disease. BRIEF HISTORY OF PRESENT ILLNESS: This is a 79-year-old male with a past medical history of myelofibrosis, presented to the emergency room with anemia. The patient had gone to Dr. Clark's office, who noticed that the patient's hemoglobin was 7. He sent him to the emergency room for GI workup. The patient denied any fevers, chills, or cough. He was admitted to the emergency room for further workup. HOSPITAL COURSE: 1. Anemia: The patient had dark stools while he was in the hospital. He did receive 3 units of blood while in the hospital with the lowest being between 7 and 8. In the past 24 hours, his hemoglobin ranged from 8.6 to 9.8. His hemoglobin at the time of discharge was 8.2. His ferritin level was 128. His B12 level was normal and his folate level was normal as well. His LDH was slightly elevated. On the day of discharge, the patient had no further dark stools and no bowel movement. Therefore, stool guaiac was unable to be collected. He was ambulating without any shortness of breath or weakness on day of discharge. He will be discharged and to follow up with his oncologist and his PCP for repeat CBC in a week. Consider GI workup as an outpatient when patient has recovered from COVID. 2. COVID positive: The patient incidentally was noted to be COVID positive. His chest x-ray was normal. He did not require oxygen while he was in the hospital. He was prescribed azithromycin by his PCP and advised to resume this on discharge. 3. Acute kidney injury on CKD: The patient's creatinine was 2.5 on admission. He was given IV fluids with improvement in his creatinine to 1.61. UA was unremarkable. Consider followup with his PCP. 4. Thrombocytopenia: The patient had a platelet count of 121. His repeat platelets on the were 104. This may be secondary to his myelofibrosis. The patient had no bleeding at the time of discharge. 5. Nausea and vomiting: The patient did have some nausea and vomiting on 01/09. Abdominal x-ray was checked, which showed no obstruction. He was given Zofran with improvement. His LFTs were normal. DISCHARGE PHYSICAL EXAMINATION: VITAL SIGNS: Temperature 98.2, heart rate 79, respiratory rate 20, O2 saturation 96% on room air, blood pressure 150/75. GENERAL: The patient is alert, awake, and oriented x3. CVS: Regular rate and rhythm with no murmurs, rubs, or gallops. LUNGS: Clear to auscultation bilaterally. ABDOMEN: Positive bowel sounds, soft, nontender, nondistended. EXTREMITIES: No edema. PERTINENT LABORATORY DATA: CBC on 01/10: White count 3.8, hemoglobin 8.2, hematocrit 25.7, platelet count 104. BMP on 01/10: Shows a creatinine of 1.61. Rest of BMP unremarkable. Iron panel on 01/05: Iron 42, TIBC 260, ferritin 128.97. LFTs on 01/05: Normal. LDH: 513. Troponin-I: 0.028, 0.028. Vitamin B12: 475. Folate: 12.7. UA on 01/05: Shows trace blood, 3 urobilinogen. COVID PCR on 01/05: Positive. COVID IgG on 01/06: Negative. IMAGING: Chest x-ray on 01/06: Shows no acute disease. Abdominal x-ray on 01/09: Shows nonobstructive bowel gas pattern. DISCHARGE CONDITION: Stable. ACTIVITY: As tolerated. DIET: Regular diet. DISCHARGE MEDICATIONS: The patient was resumed on all of his home. DISCHARGE INSTRUCTIONS: The patient should follow up with his PCP and his oncologist in a week and get a repeat CBC. Job ID: [id number] [facility]
--- NOTE | 2020-01-14 06:00 | PQF ---
CLINICAL DOCUMENTATION CLARIFICATION FORM: Dear : Cindy Vergara Date / Time: 01/14/20 Please exercise your independent, professional judgment in responding to the clarification form. Clinical indicators are provided on the bottom of this form for your review Please check appropriate box(es): [ ] Sepsis due to Covid-19 Infection [ ] Severe sepsis due to Covid-19 Infection [X ] Localized infection without sepsis [ ] SIRS due to Acute blood loss Anemia with organ dysfunction [ ] SIRS due to Acute blood loss Anemia without organ dysfunction [ ] Other diagnosis [ ] Unable to determine In addition, please specify: Present on Admission (POA): [ ] Yes [ ] No [ ] Unable to determine Physician Signature: Date/Time: For continuity of documentation, please document condition throughout progress notes and discharge summary. Thank You. To be completed by CDI/Coding staff for physician review: Present Clinical Indicators - Signs / Symptoms / Labs Results and Location in Medical Record [X] WBC 6.9, Plt count 172, Neutrophils 70.6 Laboratory 01/05 [X] SARS-Cov 2 Rap RNA: Positive Serology 01/05 [X] BP 117/64, Pulse 95, Resp 22, Temp 100.9 Vital signs 01/06 [X] presented in clinic due to anemia H&P p1 01/05 Giron PA-C [X] Pt apparently has had SOB with exertion H&P p1 01/05 Giron PA-C [X] The pt developed a cough yesterday H&P p3 01/05 Giron PA-C [X] Acute blood anemia DS p1 8/2 Ursula [X] Covid positive DS p1 8/2 Ursula [X] Acute kidney injury on chronic kidney disease DS p1 8/2 Ursula [X] Thrombocytopenia DS p1 8/2 Ursula Present Risk Factors Results and Location in Medical Record [X] 79 year-old Male H&P p1 01/05 Giron PA-C [X] Myelofibrosis H&P p1 01/05 Giron PA-C [X] HTN H&P p1 01/05 Giron PA-C [X] COPD H&P p1 01/05 Giron PA-C [X] CKD H&P p3 01/05 Giron PA-C [X] Covid positive DS p1 8/2 Ursula [X] Former Smoker H&P p2 01/05 Giron PA-C Present Treatments Results and Location in Medical Record [X] IV Dexamethasone 6 mg AUG 15 [X] IVF NS 1L AUG 15 [X] IV Decadron 6 mg AUG 15 [X] SARS-Cov 2 Rap RNA: Serology 01/05 [X] Transfused PRBC Blood Band 01/05 [X] Chest X-ray Imaging Dr Mccormick 01/05 [X] Isolation H&P p3 01/05 Bree PETER [X] ID consult Consult 01/07 [employer] Signature: Candice Wetzel Phone #: [phone] Date/Time: 01/14/20 This is a permanent part of the Medical Record [facility]
== END 2020-01-11 11:49 | disposition home or self-care (01) | DRG 811 ==
LOC: ERS 15:11 → 2SW 17:41 → OBSVTOIN 01-07 13:15
PROVIDERS: ADMIT Internal Medicine; ATTEND Internal Medicine
PROC: 30233N1 Transfusion of Nonautologous Red Blood Cells into Peripheral Vein, Percutaneous Approach (ICD-10-PCS; principal; 2020-01-07)
PROC: 8E0ZXY6 Isolation (ICD-10-PCS; 2020-01-07)
DX: D62 Acute posthemorrhagic anemia (principal); U07.1 COVID-19; N17.9 Acute kidney failure, unspecified; D75.81 Myelofibrosis; K92.2 Gastrointestinal hemorrhage, unspecified; N18.9 Chronic kidney disease, unspecified; R11.2 Nausea with vomiting, unspecified; I48.91 Unspecified atrial fibrillation; K57.30 Diverticulosis of large intestine without perforation or abscess without bleeding; K21.9 Gastro-esophageal reflux disease without esophagitis; N40.0 Benign prostatic hyperplasia without lower urinary tract symptoms; J44.9 Chronic obstructive pulmonary disease, unspecified; I12.9 Hypertensive chronic kidney disease with stage 1 through stage 4 chronic kidney disease, or unspecified chronic kidney disease; Z90.49 Acquired absence of other specified parts of digestive tract; Z88.1 Allergy status to other antibiotic agents; Z87.891 Personal history of nicotine dependence; Z79.899 Other long term (current) drug therapy; Z79.01 Long term (current) use of anticoagulants
CPT/HCPCS: 36415; 36430; 36600; 71045; 74018; 80048; 80053; 80076; 81001; 82607; 82728; 82746; 83010; 83540; 83550; 83605; 83615; 83735; 83880; 84484; 85014; 85018; 85025; 85027; 85046; 85610; 85730; 86769; 86850; 86900; 86901; 87086; 93005; 96361; 96374; 96375; 96376; C9113; G0378; J1100; J2405; P9016; U0002

== ENCOUNTER 2020-09-16 14:52 | Outpatient (CLI) | payer MEDICARE, BC | END 2020-09-16 14:53 | disposition home or self-care (01) | LOC: BICULT 14:52 | PROVIDERS: ATTEND Internal Medicine Nephrology | DX: N18.4 Chronic kidney disease, stage 4 (severe) (principal); N28.1 Cyst of kidney, acquired; D50.8 Other iron deficiency anemias; D45 Polycythemia vera; N18.30 Chronic kidney disease, stage 3 unspecified; D63.1 Anemia in chronic kidney disease | CPT/HCPCS: 36415; 76770; 82728; 83540; 83550 ==

== ENCOUNTER 2021-04-01 11:39 | Outpatient (CLI) | payer MEDICARE, BC | END 2021-04-01 11:40 | disposition home or self-care (01) | LOC: BICULT 11:39 | PROVIDERS: ATTEND Internal Medicine | DX: R09.89 Other specified symptoms and signs involving the circulatory and respiratory systems (principal) | CPT/HCPCS: 93880 ==

== ENCOUNTER 2021-05-06 10:49 | Outpatient (CLI) | payer MEDICARE, BC ==
[2021-05-06 12:30] LABS: Hemoglobin 12.7 g/dL (13.5-17.5); Mean Corpuscular Hemoglobin 27.1 pg (27.0-33.0); Mean Corpuscular Volume 90.6 fl (81.2-95.1); Mean Platelet Volume 11.2 fl (7.4-10.4); Platelet Count 235 10x3/uL (150-450); RBC Distribution Width 21.4 % (11.5-14.5); Red Blood Cell (RBC) Count 4.68 10x6/uL (4.32-5.72)
[2021-05-06 12:46] LABS: INR-International Normal Ratio 1.1; PTT 31.3 sec (22.0-33.0); Prothrombin Time 12.1 sec (9.5-12.1)
[2021-05-06 12:49] LABS: ALT (SGPT) 20 U/L (8-55); AST (SGOT) 28 U/L (5-34); Albumin 4.9 g/dL (3.4-4.8); Alkaline Phosphatase 64 U/L (40-110); Anion Gap 13 mmol/L (10-20); BUN (Urea Nitrogen) 29 mg/dL (8.4-25.7); Bilirubin, Total 0.6 mg/dL (0.2-1.2); Calc. Creatinine Clearance 0 mL/min (70-130); Calcium 9.1 mg/dL (7.8-10.44); Carbon Dioxide 25 mmol/L (23-31); Chloride 105 mmol/L (98-107); Globulin 2.7 g/dL (2.4-3.5); Glucose 65 mg/dL (83-110); Potassium 5.4 mmol/L (3.5-5.1); Protein, Total 7.6 g/dL (5.8-8.1); Sodium 138 mmol/L (136-145)
[2021-05-06 23:18] LABS: SARS-CoV-2 PCR by NAA Not Detected (NotDetected)
== END 2021-05-06 10:50 | disposition home or self-care (01) ==
LOC: LABBT 10:49
PROVIDERS: ATTEND Internal Medicine Cardiovascular Disease
DX: Z01.818 Encounter for other preprocedural examination (principal); I48.0 Paroxysmal atrial fibrillation; Z20.822 Contact with and (suspected) exposure to COVID-19
CPT/HCPCS: 80053; 85027; 85610; 85730; 86147; 86850; 86900; 86901; 86920; 93005; U0003; U0005; 93010

== ENCOUNTER 2021-05-06 11:00 | Inpatient (IN) | payer MEDICARE, BC ==
[2021-05-06 12:30] LABS: Hemoglobin 12.7 g/dL (13.5-17.5); Mean Corpuscular Hemoglobin 27.1 pg (27.0-33.0); Mean Corpuscular Volume 90.6 fl (81.2-95.1); Mean Platelet Volume 11.2 fl (7.4-10.4); Platelet Count 235 10x3/uL (150-450); RBC Distribution Width 21.4 % (11.5-14.5); Red Blood Cell (RBC) Count 4.68 10x6/uL (4.32-5.72)
[2021-05-06 12:46] LABS: INR-International Normal Ratio 1.1; PTT 31.3 sec (22.0-33.0); Prothrombin Time 12.1 sec (9.5-12.1)
[2021-05-06 12:49] LABS: ALT (SGPT) 20 U/L (8-55); AST (SGOT) 28 U/L (5-34); Albumin 4.9 g/dL (3.4-4.8); Alkaline Phosphatase 64 U/L (40-110); Anion Gap 13 mmol/L (10-20); BUN (Urea Nitrogen) 29 mg/dL (8.4-25.7); Bilirubin, Total 0.6 mg/dL (0.2-1.2); Calc. Creatinine Clearance 0 mL/min (70-130); Calcium 9.1 mg/dL (7.8-10.44); Carbon Dioxide 25 mmol/L (23-31); Chloride 105 mmol/L (98-107); Globulin 2.7 g/dL (2.4-3.5); Glucose 65 mg/dL (83-110); Potassium 5.4 mmol/L (3.5-5.1); Protein, Total 7.6 g/dL (5.8-8.1); Sodium 138 mmol/L (136-145)
[2021-05-06 23:18] LABS: SARS-CoV-2 PCR by NAA Not Detected (NotDetected)
[2021-05-09 13:56] VITALS: BMI 20.5
[2021-05-11 08:01] LABS: Potassium 4.7 mmol/L (3.5-5.1)
[2021-05-11] MEDS ORDERED: Heparin 10,000 UNITS/ 10 ML VIAL ONE (08:43)
[2021-05-11] MEDS ORDERED: Protamine Sulfate 50 MG/5 ML VIAL ONE (08:43)
[2021-05-11] MEDS ORDERED: Fentanyl 100 MCG/2 ML VIAL ONE (09:19)
[2021-05-11] MEDS ORDERED: Iopamidol 370 76% 100 ML VIAL ONE (09:19)
[2021-05-11] MEDS ORDERED: PHENYLEPHRINE-NS 100 MCG/ML 10 ML SYRINGE ONE (09:23)
[2021-05-11] MEDS ORDERED: Ondansetron PF 4 MG/2 ML Vial ONE (09:23)
[2021-05-11] MEDS ORDERED: ePHEDrine 50 MG/ML VIAL ONE (09:23)
[2021-05-11] MEDS ORDERED: Glycopyrrolate 0.2 MG/ML 5 ML SYRINGE ONE (09:23)
[2021-05-11] MEDS ORDERED: Dexamethasone 20 MG/5 ML VIAL ONE (09:23)
[2021-05-11] MEDS ORDERED: PROPOFOL 200 MG/20 ML VIAL ONE (09:23)
[2021-05-11] MEDS ORDERED: Lidocaine 1% PF 5 ML VIAL ONE (09:23)
[2021-05-11] MEDS ORDERED: Rocuronium Bromide 10 MG/ML (10ML VIAL) ONE (09:23)
[2021-05-11] MEDS ORDERED: Phenylephrine 10 MG/ML VIAL ONE (10:39)
== END 2021-05-11 16:29 | disposition home or self-care (01) | DRG 274 ==
LOC: SURG A 05-11 06:57
PROVIDERS: ADMIT Internal Medicine Cardiovascular Disease; ATTEND Internal Medicine Cardiovascular Disease
PROC: 02L73DK Occlusion of Left Atrial Appendage with Intraluminal Device, Percutaneous Approach (ICD-10-PCS; principal; 2021-05-11)
PROC: B24BZZ4 Ultrasonography of Heart with Aorta, Transesophageal (ICD-10-PCS; 2021-05-11)
DX: I48.0 Paroxysmal atrial fibrillation (principal); D75.81 Myelofibrosis; Z00.6 Encounter for examination for normal comparison and control in clinical research program; Z20.822 Contact with and (suspected) exposure to COVID-19; D64.9 Anemia, unspecified; I10 Essential (primary) hypertension; E78.5 Hyperlipidemia, unspecified; H35.30 Unspecified macular degeneration; M06.9 Rheumatoid arthritis, unspecified; I73.9 Peripheral vascular disease, unspecified; Z79.01 Long term (current) use of anticoagulants; Z98.42 Cataract extraction status, left eye; Z98.41 Cataract extraction status, right eye; Z88.1 Allergy status to other antibiotic agents; Z79.51 Long term (current) use of inhaled steroids; Z79.82 Long term (current) use of aspirin; Z79.899 Other long term (current) drug therapy
CPT/HCPCS: 33340; 36415; 36430; 80053; 84132; 85025; 85027; 85347; 85610; 85730; 86850; 86900; 86901; 93306; 93312; 93662; C1759; C1776; J1644; J2370; J2720; J3010; U0003; U0005

== ENCOUNTER 2021-05-13 12:32 | Emergency (ER) | payer MEDICARE, BC ==
[2021-05-13 15:54] LABS: ALT (SGPT) 10 U/L (8-55); AST (SGOT) 21 U/L (5-34); Albumin 3.6 g/dL (3.4-4.8); Alkaline Phosphatase 48 U/L (40-110); Anion Gap 10 mmol/L (10-20); BUN (Urea Nitrogen) 28 mg/dL (8.4-25.7); Bilirubin, Total 0.5 mg/dL (0.2-1.2); Calc. Creatinine Clearance 0 mL/min (70-130); Carbon Dioxide 25 mmol/L (23-31); Chloride 103 mmol/L (98-107); Globulin 2.5 g/dL (2.4-3.5); Glucose 105 mg/dL (83-110); Potassium 4.7 mmol/L (3.5-5.1); Protein, Total 6.1 g/dL (5.8-8.1); Sodium 133 mmol/L (136-145)
[2021-05-13 15:58] LABS: #Basophils 0.1 thou/uL (0.0-0.2); #Eosinphils 0.2 thou/uL (0.0-0.7); #Lymphocytes 0.9 thou/uL (1.20-3.40); #Monocytes 0.9 thou/uL (0.11-0.59); #Neutrophils 6.5 thou/uL (1.40-6.50); %Basophils 1.5 % (0.0-1.0); %Eosinophils 2.3 % (0.0-10.0); %Lymphocytes 10.4 % (21.0-51.0); %Monocytes 10.5 % (0.0-10.0); %Neutrophils 75.2 % (42.0-75.0); MDiff Complete? YES; Mean Corpuscular HGB CONC 30.9 g/dL (32.0-36.0); Mean Corpuscular Hemoglobin 28.2 pg (27.0-31.0); Mean Corpuscular Volume 91.4 fL (78.0-98.0); Mean Platelet Volume 10.2 fL (7.4-10.4); Ovalocytes SLIGHT = 2-5 cells (100X) (0-1/hpf); Platelet Count 187 thou/uL (130-400); Platelet Morphology Comment Appears Adequate; Polychromasia SLIGHT = 2-3 cells (100X) (0-2/hpf); RBC Distribution Width 20.6 % (11.5-14.5); Red Blood Cell (RBC) Count 3.91 mill/uL (4.70-6.10); White Blood Cell (WBC) Count 8.6 thou/uL (4.8-10.8)
== END 2021-05-13 17:41 | disposition home or self-care (01) ==
LOC: ERS 12:32
DX: I83.92 Asymptomatic varicose veins of left lower extremity (principal); Z87.891 Personal history of nicotine dependence; I48.91 Unspecified atrial fibrillation; J44.9 Chronic obstructive pulmonary disease, unspecified; Z79.899 Other long term (current) drug therapy; Z79.82 Long term (current) use of aspirin; Z79.01 Long term (current) use of anticoagulants; N18.4 Chronic kidney disease, stage 4 (severe)
CPT/HCPCS: 36415; 80048; 85025; 85652; 86140; 93976; 99283

== ENCOUNTER 2021-06-15 10:24 | Outpatient (CLI) | payer MEDICARE, BC ==
[2021-06-15 11:53] LABS: Hemoglobin 12.8 g/dL (13.5-17.5); Mean Corpuscular HGB CONC 29.4 g/dL (32.0-36.0); Mean Corpuscular Hemoglobin 27.6 pg (27.0-33.0); Mean Corpuscular Volume 93.8 fl (81.2-95.1); Mean Platelet Volume 11.7 fl (7.4-10.4); Platelet Count 273 10x3/uL (150-450); RBC Distribution Width 20.1 % (11.5-14.5); Red Blood Cell (RBC) Count 4.64 10x6/uL (4.32-5.72); White Blood Cell (WBC) Count 9.3 10x3/uL (3.5-10.5)
[2021-06-15 12:11] LABS: INR-International Normal Ratio 1.1; PTT 30.4 sec (22.0-33.0); Prothrombin Time 12.6 sec (9.5-12.1)
[2021-06-15 12:13] LABS: Anion Gap 14 mmol/L (10-20); BUN (Urea Nitrogen) 29 mg/dL (8.4-25.7); Calc. Creatinine Clearance 0 mL/min (70-130); Calcium 9.1 mg/dL (7.8-10.44); Carbon Dioxide 23 mmol/L (23-31); Chloride 106 mmol/L (98-107); Glucose 81 mg/dL (83-110); Potassium 5.1 mmol/L (3.5-5.1); Sodium 138 mmol/L (136-145)
[2021-06-16 14:35] LABS: SARS-CoV-2 PCR by NAA Not Detected (NotDetected)
== END 2021-06-15 10:25 | disposition home or self-care (01) ==
LOC: LABBT 10:24
PROVIDERS: ATTEND Internal Medicine Cardiovascular Disease
DX: Z01.812 Encounter for preprocedural laboratory examination (principal); I48.0 Paroxysmal atrial fibrillation; Z20.822 Contact with and (suspected) exposure to COVID-19
CPT/HCPCS: 80048; 85027; 85610; 85730; U0003; U0005

== ENCOUNTER 2021-06-20 11:27 | Day surgery (SDC) | payer MEDICARE, BC ==
[2021-06-14 11:39] VITALS: BMI 20.5
[2021-06-20] MEDS ORDERED: PROPOFOL 20 ML ONE (14:17)
== END 2021-06-20 15:47 | disposition home or self-care (01) ==
LOC: CCL 11:27
PROVIDERS: ATTEND Internal Medicine Cardiovascular Disease
PROC: B246ZZ4 Ultrasonography of Right and Left Heart, Transesophageal (ICD-10-PCS; principal; 2021-06-20)
DX: I48.0 Paroxysmal atrial fibrillation (principal); I08.2 Rheumatic disorders of both aortic and tricuspid valves; I70.0 Atherosclerosis of aorta; Z79.01 Long term (current) use of anticoagulants; Z79.82 Long term (current) use of aspirin; Z79.899 Other long term (current) drug therapy; Z88.1 Allergy status to other antibiotic agents; Z95.818 Presence of other cardiac implants and grafts
CPT/HCPCS: 93312; J2704

== ENCOUNTER 2021-06-29 10:14 | Emergency (ER) | payer MEDICARE, BC ==
[2021-06-29] MEDS ORDERED: Silver Nitrate Application 1 EACH ONE (11:39)
== END 2021-06-29 12:20 | disposition home or self-care (01) ==
LOC: ERS 10:14
DX: R04.0 Epistaxis (principal); I10 Essential (primary) hypertension; I48.91 Unspecified atrial fibrillation; J44.9 Chronic obstructive pulmonary disease, unspecified; Z87.891 Personal history of nicotine dependence; Z79.82 Long term (current) use of aspirin; Z79.899 Other long term (current) drug therapy
CPT/HCPCS: 99283

== ENCOUNTER 2021-12-09 10:14 | Outpatient (CLI) | payer MEDICARE, BC | END 2021-12-09 10:15 | disposition home or self-care (01) | LOC: RAD 10:14 | PROVIDERS: ATTEND Family Medicine | DX: R06.09 Other forms of dyspnea (principal) | CPT/HCPCS: 71046 ==

== ENCOUNTER 2025-03-02 09:55 | Inpatient (IN) | payer MEDICARE, BC ==
[2025-03-02 11:31] LABS: ALT (SGPT) 50 U/L (Less than 45); AST (SGOT) 70 U/L (11-34); Albumin 3.3 g/dL (3.1-4.5); Alkaline Phosphatase 100 U/L (40-110); Anion Gap 17 mmol/L (10-20); BUN (Urea Nitrogen) 23 mg/dL (8.4-25.7); Bilirubin, Total 0.4 mg/dL (0.3-1.2); Calc. Creatinine Clearance 0 mL/min (70-130); Calcium 8.8 mg/dL (7.8-10.44); Carbon Dioxide 20 mmol/L (23-31); Chloride 94 mmol/L (98-107); Globulin 3.4 g/dL (2.4-3.5); Glucose 85 mg/dL (83-110); Hematocrit 35.0 % (42.0-52.0); Hemoglobin 10.8 g/dL (14.0-18.0); Mean Corpuscular Hemoglobin 27.6 pg (27.0-31.0); Mean Corpuscular Volume 89.5 fL (78.0-98.0); Platelet Count 414 10x3/uL (130-400); Potassium 4.5 mmol/L (3.5-5.1); Red Blood Cell (RBC) Count 3.91 mill/uL (4.70-6.10); Sodium 126 mmol/L (136-145); White Blood Cell (WBC) Count 16.21 10x3/uL (4.8-10.8)
[2025-03-02] MEDS ORDERED: Azithromycin 500 MG VIAL ONE (12:23)
[2025-03-02] MEDS ORDERED: cefTRIAXone (ROCEPHIN) 2 GM VIAL ONE (12:31)
[2025-03-02 12:40] LABS: RBC Count-Automated (BF) 2267 /cu.mm; WBC/Nucleated-Auto (BF) 3752 /cu.mm
[2025-03-02 12:40] LABS: Anisocytosis MODERATE=16-30 cells HPF (0-5); Burr Cells MODERATE= 6-15 cells HPF (0-1); Macrocytosis SLIGHT = 6-15 cells HPF (0-5); Platelet Adequacy Comment Platelets Increased; Poikilocytosis SLIGHT = 6-15 cells HPF (0-5); Polychromasia MODERATE = 3-4 cells HPF (0-2); Schistocytes SLIGHT = 2-5 cells HPF (0-1); Smudge Cells 4.0 %
[2025-03-02 12:54] LABS: Fluid, Triglycerides 11.0 mg/dL (Not Available); Pleural Fluid, Amylase 35.0 U/L (Not Available); Pleural Fluid, Glucose 27.0 mg/dL; Pleural Fluid, LDH 1401.0 U/L (Not Available); Pleural Fluid, Protein 4.0 g/dL
[2025-03-02 13:00] LABS: Fluid, pH - Pleural Fld 7.112 (7.60 - 7.66)
[2025-03-02 13:39] LABS: BF Segmented Neutrophils 56 %; Cell Count Non Hematic 33 %
[2025-03-02] MEDS ORDERED: Polyethylene Glycol OPTH DROP 15 ML BOT EA EYE PRN (15:58)
[2025-03-02] MEDS ORDERED: metroNIDAZOLE 500 MG (100 mL) BAG ONE (17:10)
[2025-03-02] MEDS ORDERED: Electrolyte Replacement Protocol 1 EACH FS SCH (18:43)
[2025-03-02] MEDS ORDERED: Ondansetron PF 4 MG/2 ML Vial IVP PRN (18:43)
[2025-03-02] MEDS ORDERED: Senokot S 8.6-50 MG TAB PO PRN (18:43)
[2025-03-02] MEDS ORDERED: Melatonin 3 MG TAB PO PRN (18:43)
[2025-03-02 18:48] VITALS: BMI 19.8
[2025-03-02] MEDS: Aspirin 81 mg Enteric Coated Tablet PO SCH (21:07)
[2025-03-02] MEDS: Acetaminophen 325 MG TAB PO SCH (21:08)
[2025-03-02 22:22] LABS: Influenza A by NAA Not Detected (NotDetected); Influenza B by NAA Not Detected (NotDetected); RSV by NAA Not Detected (NotDetected); SARS-CoV-2 NAA Rapid Test Not Detected (NotDetected)
[2025-03-02] MEDS: VANCOMYCIN 1.75 GM/350 ML Premix BAG IVPB SCH (23:39)
[2025-03-03 04:18] LABS: #Basophils 0.21 10x3/uL (0.0-0.2); #Eosinophils 0.33 10x3/uL (0.0-0.7); #Monocytes 1.86 10x3/uL (0.11-0.59); #Neutrophils 11.59 10x3/uL (1.40-6.50); %Basophils 1.4 % (0.0-1.0); %Eosinophils 2.2 % (0.0-10.0); %Lymphocytes 3.7 % (21.0-51.0); %Monocytes 12.3 % (0.0-10.0); %Neutrophils 76.4 % (42.0-75.0); Hematocrit 32.4 % (42.0-52.0); Hemoglobin 9.9 g/dL (14.0-18.0); Mean Corpuscular Hemoglobin 27.6 pg (27.0-31.0); Mean Corpuscular Volume 90.3 fL (78.0-98.0); Platelet Count 415 10x3/uL (130-400); Red Blood Cell (RBC) Count 3.59 mill/uL (4.70-6.10); White Blood Cell (WBC) Count 15.16 10x3/uL (4.8-10.8)
[2025-03-03 04:50] LABS: Vancomycin, Random 33.0 ug/mL (See Comment)
[2025-03-03 04:52] LABS: ALT (SGPT) 51 U/L (Less than 45); AST (SGOT) 65 U/L (11-34); Albumin 2.8 g/dL (3.1-4.5); Alkaline Phosphatase 88 U/L (40-110); Anion Gap 14 mmol/L (10-20); BUN (Urea Nitrogen) 21 mg/dL (8.4-25.7); Bilirubin, Total 0.4 mg/dL (0.3-1.2); Calc. Creatinine Clearance 33 mL/min (70-130); Calcium 8.4 mg/dL (7.8-10.44); Carbon Dioxide 18 mmol/L (23-31); Chloride 98 mmol/L (98-107); Globulin 3.1 g/dL (2.4-3.5); Glucose 90 mg/dL (83-110); Potassium 4.4 mmol/L (3.5-5.1); Sodium 126 mmol/L (136-145)
[2025-03-03] MEDS: CO Q-10 CAPSULE 100 MG PO SCH (08:58)
[2025-03-03] MEDS: Pantoprazole 40 MG DR.TAB PO SCH (08:59)
[2025-03-03] MEDS: Multivitamin W/ Minerals 1 TAB PO SCH (08:59)
[2025-03-03] MEDS: Rosuvastatin 20 MG TAB PO SCH (08:59)
[2025-03-03] MEDS: Enoxaparin 30 MG (0.3 mL) SYRINGE SC SCH (08:59)
[2025-03-03] MEDS ORDERED: Vancomycin 1 GM Premix Bag IVPB SCH (12:00)
[2025-03-03] MEDS: EPOETIN ALFA-EPBX (ESRD) 10,000 UNITS/ML VIAL SC SCH (12:51)
[2025-03-03 14:52] VITALS: BMI 19.8
[2025-03-03 18:35] LABS: Sodium 128 mmol/L (136-145)
[2025-03-04 04:46] LABS: #Basophils 0.20 10x3/uL (0.0-0.2); #Eosinophils 0.27 10x3/uL (0.0-0.7); #Monocytes 1.28 10x3/uL (0.11-0.59); #Neutrophils 9.62 10x3/uL (1.40-6.50); %Basophils 1.6 % (0.0-1.0); %Eosinophils 2.2 % (0.0-10.0); %Lymphocytes 4.5 % (21.0-51.0); %Monocytes 10.2 % (0.0-10.0); %Neutrophils 76.7 % (42.0-75.0); Hematocrit 32.5 % (42.0-52.0); Hemoglobin 9.9 g/dL (14.0-18.0); Mean Corpuscular Hemoglobin 27.6 pg (27.0-31.0); Mean Corpuscular Volume 90.5 fL (78.0-98.0); Platelet Count 366 10x3/uL (130-400); Red Blood Cell (RBC) Count 3.59 mill/uL (4.70-6.10); White Blood Cell (WBC) Count 12.54 10x3/uL (4.8-10.8)
[2025-03-04 05:04] LABS: Anion Gap 15 mmol/L (10-20); BUN (Urea Nitrogen) 21 mg/dL (8.4-25.7); Calc. Creatinine Clearance 34 mL/min (70-130); Calcium 8.7 mg/dL (7.8-10.44); Carbon Dioxide 17 mmol/L (23-31); Chloride 102 mmol/L (98-107); Glucose 82 mg/dL (83-110); Magnesium 2.1 mg/dL (1.6-2.6); Potassium 4.3 mmol/L (3.5-5.1); Sodium 130 mmol/L (136-145)
[2025-03-04] MEDS: Enoxaparin 40 MG (0.4 mL) SYRINGE SC SCH (09:01)
[2025-03-04] MEDS: Sodium Bicarbonate Tab 325 MG TAB PO SCH (10:25)
[2025-03-04] MEDS: GUAIFENESIN SF SOLN 200 MG/10 ML UDCUP PO PRN (14:19)
[2025-03-04] MEDS: Acetaminophen 325 MG TAB PO PRN (23:00)
[2025-03-05 05:41] LABS: #Basophils 0.18 10x3/uL (0.0-0.2); #Eosinophils 0.28 10x3/uL (0.0-0.7); #Monocytes 1.49 10x3/uL (0.11-0.59); #Neutrophils 10.16 10x3/uL (1.40-6.50); %Basophils 1.4 % (0.0-1.0); %Eosinophils 2.1 % (0.0-10.0); %Lymphocytes 2.8 % (21.0-51.0); %Monocytes 11.4 % (0.0-10.0); %Neutrophils 77.7 % (42.0-75.0); Hematocrit 31.7 % (42.0-52.0); Hemoglobin 9.6 g/dL (14.0-18.0); Mean Corpuscular Hemoglobin 27.7 pg (27.0-31.0); Mean Corpuscular Volume 91.6 fL (78.0-98.0); Platelet Count 363 10x3/uL (130-400); Red Blood Cell (RBC) Count 3.46 mill/uL (4.70-6.10); White Blood Cell (WBC) Count 13.07 10x3/uL (4.8-10.8)
[2025-03-05 05:55] LABS: Vancomycin, Random 18.7 ug/mL (See Comment)
[2025-03-05 05:57] LABS: Anion Gap 14 mmol/L (10-20); BUN (Urea Nitrogen) 19 mg/dL (8.4-25.7); Calc. Creatinine Clearance 38 mL/min (70-130); Calcium 8.6 mg/dL (7.8-10.44); Carbon Dioxide 17 mmol/L (23-31); Chloride 107 mmol/L (98-107); Glucose 89 mg/dL (83-110); Potassium 4.3 mmol/L (3.5-5.1); Sodium 134 mmol/L (136-145)
[2025-03-05] MEDS: Folic Acid/Vit B Comp W-C PO SCH (21:06)
[2025-03-06] MEDS: Vancomycin 1 GM in Premix 1 BAG IVPB SCH ×2 (02:41→03:26)
[2025-03-06 05:01] LABS: #Basophils 0.19 10x3/uL (0.0-0.2); #Eosinophils 0.29 10x3/uL (0.0-0.7); #Monocytes 1.54 10x3/uL (0.11-0.59); #Neutrophils 11.37 10x3/uL (1.40-6.50); %Basophils 1.3 % (0.0-1.0); %Eosinophils 2.0 % (0.0-10.0); %Lymphocytes 4.6 % (21.0-51.0); %Monocytes 10.4 % (0.0-10.0); %Neutrophils 76.9 % (42.0-75.0); Hematocrit 34.0 % (42.0-52.0); Hemoglobin 10.1 g/dL (14.0-18.0); Mean Corpuscular Hemoglobin 27.5 pg (27.0-31.0); Mean Corpuscular Volume 92.6 fL (78.0-98.0); Platelet Count 390 10x3/uL (130-400); Red Blood Cell (RBC) Count 3.67 mill/uL (4.70-6.10); White Blood Cell (WBC) Count 14.78 10x3/uL (4.8-10.8)
[2025-03-06 05:39] LABS: Anion Gap 13 mmol/L (10-20); BUN (Urea Nitrogen) 20 mg/dL (8.4-25.7); Calc. Creatinine Clearance 33 mL/min (70-130); Calcium 8.9 mg/dL (7.8-10.44); Carbon Dioxide 20 mmol/L (23-31); Chloride 105 mmol/L (98-107); Glucose 97 mg/dL (83-110); Iron 26 ug/dL (65-175); Iron Binding Capacity, Total 150 mcg/dL (261-462); Potassium 4.4 mmol/L (3.5-5.1); Sodium 134 mmol/L (136-145)
[2025-03-06] MEDS: Enoxaparin 30 MG (0.3 mL) SYRINGE SC SCH (10:16)
[2025-03-06] MEDS: Albumin 25% 25 GM (100 mL) BOT IVPB SCH (12:54)
[2025-03-06] MEDS ORDERED: Melatonin 3 MG TAB PO SCH (21:00)
[2025-03-06] MEDS ORDERED: Vancomycin 1 GM in Premix 1 BAG IVPB SCH (23:59)
[2025-03-07 08:10] LABS: #Basophils 0.17 10x3/uL (0.0-0.2); #Eosinophils 0.21 10x3/uL (0.0-0.7); #Monocytes 1.97 10x3/uL (0.11-0.59); #Neutrophils 13.46 10x3/uL (1.40-6.50); %Basophils 1.0 % (0.0-1.0); %Eosinophils 1.2 % (0.0-10.0); %Lymphocytes 2.4 % (21.0-51.0); %Monocytes 11.6 % (0.0-10.0); %Neutrophils 79.5 % (42.0-75.0); Hematocrit 29.2 % (42.0-52.0); Hemoglobin 8.6 g/dL (14.0-18.0); Mean Corpuscular Hemoglobin 27.7 pg (27.0-31.0); Mean Corpuscular Volume 94.2 fL (78.0-98.0); Platelet Count 359 10x3/uL (130-400); Red Blood Cell (RBC) Count 3.10 mill/uL (4.70-6.10); White Blood Cell (WBC) Count 16.93 10x3/uL (4.8-10.8)
[2025-03-07 08:34] LABS: Anion Gap 19 mmol/L (10-20); BUN (Urea Nitrogen) 23 mg/dL (8.4-25.7); Calc. Creatinine Clearance 33 mL/min (70-130); Calcium 8.6 mg/dL (7.8-10.44); Carbon Dioxide 18 mmol/L (23-31); Chloride 108 mmol/L (98-107); Glucose 81 mg/dL (83-110); Potassium 4.7 mmol/L (3.5-5.1); Sodium 140 mmol/L (136-145)
[2025-03-07] MEDS: Aquaphor 10 GM TUBE TOP SCH (16:18)
[2025-03-08] MEDS: Ketorolac Tromethamine 30 MG (1 mL) VIAL IVP SCH (01:08)
[2025-03-08] MEDS: Scopolamine 1 mg/72 hour Patch TD SCH (03:39)
[2025-03-08 08:09] VITALS: BP 67/46; TEMP 98.2
[2025-03-08] MEDS: Glycopyrrolate 0.4 MG/ 2 ML VIAL SLOW IVP SCH (14:54)
[2025-03-08] MEDS: Ketorolac Tromethamine 30 MG (1 mL) VIAL IVP PRN (17:37)
== END 2025-03-08 19:29 | disposition expired | DRG 180 ==
LOC: ERS 09:55 → ERHOLD 13:03 → OBS 18:35 → OBSVTOIN 03-03 10:27 → 2NO 03-07 07:31 → T4-B 03-07 16:12
PROVIDERS: ADMIT Family Medicine; ATTEND Student in an Organized Health Care Education/Training Program
PROC: 0W993ZZ Drainage of Right Pleural Cavity, Percutaneous Approach (ICD-10-PCS; principal; 2025-03-02)
PROC: 3E03329 Introduction of Other Anti-infective into Peripheral Vein, Percutaneous Approach (ICD-10-PCS; 2025-03-02)
PROC: 30233J1 Transfusion of Nonautologous Serum Albumin into Peripheral Vein, Percutaneous Approach (ICD-10-PCS; 2025-03-06)
PROC: 05HY33Z Insertion of Infusion Device into Upper Vein, Percutaneous Approach (ICD-10-PCS; 2025-03-06)
DX: C78.2 Secondary malignant neoplasm of pleura (principal); J18.9 Pneumonia, unspecified organism; J96.01 Acute respiratory failure with hypoxia; R40.20 Unspecified coma; D75.81 Myelofibrosis; E87.1 Hypo-osmolality and hyponatremia; E87.20 Acidosis, unspecified; J44.0 Chronic obstructive pulmonary disease with (acute) lower respiratory infection; N17.9 Acute kidney failure, unspecified; E44.0 Moderate protein-calorie malnutrition; Q61.3 Polycystic kidney, unspecified; Z68.1 Body mass index [BMI] 19.9 or less, adult; F05 Delirium due to known physiological condition; Z51.5 Encounter for palliative care; Z66 Do not resuscitate; J91.0 Malignant pleural effusion; I48.0 Paroxysmal atrial fibrillation; E78.5 Hyperlipidemia, unspecified; D46.9 Myelodysplastic syndrome, unspecified; N18.30 Chronic kidney disease, stage 3 unspecified; H35.30 Unspecified macular degeneration; F03.90 Unspecified dementia, unspecified severity, without behavioral disturbance, psychotic disturbance, mood disturbance, and anxiety; D45 Polycythemia vera; D63.1 Anemia in chronic kidney disease; I12.9 Hypertensive chronic kidney disease with stage 1 through stage 4 chronic kidney disease, or unspecified chronic kidney disease; Z88.8 Allergy status to other drugs, medicaments and biological substances; Z98.42 Cataract extraction status, left eye; Z98.41 Cataract extraction status, right eye; Z88.1 Allergy status to other antibiotic agents; Z79.82 Long term (current) use of aspirin; Z79.899 Other long term (current) drug therapy; Z90.49 Acquired absence of other specified parts of digestive tract; Z98.890 Other specified postprocedural states; Z87.891 Personal history of nicotine dependence; Z95.818 Presence of other cardiac implants and grafts; D63.0 Anemia in neoplastic disease; R16.1 Splenomegaly, not elsewhere classified; R62.7 Adult failure to thrive; R91.8 Other nonspecific abnormal finding of lung field; R59.0 Localized enlarged lymph nodes
CPT/HCPCS: 36415; 71045; 71046; 71260; 74177; 80048; 80053; 80202; 82042; 82105; 82150; 82378; 82728; 82945; 83540; 83550; 83605; 83615; 83735; 83880; 83986; 84157; 84443; 84478; 84484; 85025; 85060; 86301; 87040; 87070; 87081; 87116; 87205; 87206; 87637; 88112; 88305; 88341; 88342; 89051; 93005; 94640; 96365; 96366; 96367; 96372; 96375; 96376; G0378; J0456; J0692; J0696; J1630; J1650; J1885; J2060; J3373; J3375; J7030; J7050; P9047; Q5105